=== PATIENT | female | born 1975 | race Caucasian/White ===

== ENCOUNTER 2018-02-23 09:31 | Day surgery (SDC) | payer OTHER, SELFPAY ==
[2018-02-23] VITALS (7 sets, daily range): BP systolic 115–128; BP diastolic 64–90; PULSE 62–86; RESP 13–18; TEMP 36.3–36.8; O2SAT 94–99; BMI 36.1
--- NOTE | 2018-02-23 | PATH_ITS ---
[facility] Accession Number: [id number] . 01 Material submitted: . PART A: ASCENDING COLON SUBMUCOSAL MASS PART B: SUBMUCOSAL MASS AT 30CM PART C: POLYP AT 15CM . 02 Diagnosis: A. Ascending Colon, Submucosal Mass, Biopsy: Compatible with submucosal lipoma. Negative for dysplasia or malignancy. . B. Submucosal Colon Mass at 30 cm, Biopsy: Colonic mucosa with no diagnostic abnormality. No submucosa present for evaluation. Negative for dysplasia or malignancy. . C. Colon Polyp at 15 cm, Biopsy: Invasive adenocarcinoma, moderately differentiated; please see cancer case summary. . . . COLON AND RECTUM CANCER CASE SUMMARY . Tumor site: Other: at 15 cm. Specimen integrity: Fragmented. Polyp size: Cannot be determined; fragmented specimen. Polyp configuration: Sessile (per discussion with Dr. Douglas) Size of invasive carcinoma: Greatest extent: 0.5 cm as measured on glass slide. Histologic type: Adenocarcinoma. Histologic grade: G2 - moderately differentiated. Tumor extension: Tumor invades submucosa. Margins Deep margin (stalk margin): Cannot be assessed (fragmented). Lymphovascular invasion: Not identified. Tumor budding: Number of tumor buds in one field: 1. Low score (0-4). Type of polyp in which invasive carcinoma arose: Tubular adenoma. Ancillary studies: Immunohistochemical stains for DNA mismatch repair proteins are pending and results will be issued in an addendum. MRV/02/24/2018 . 02 Comment: B. The endoscopic impression of a submucosal mass is noted; however, there is no submucosal tissue present for evaluation. . C. As part of routine quality engineer medical device, Dr. Shaw has reviewed part C of this case and agrees with the diagnosis of adenocarcinoma. The finding of invasive adenocarcinoma was reported to Dr. Douglas's nurse, Xi, by Dr. Shree Denis on 02/24/2018 at 12:15 p.m., and was discussed directly with Dr. Douglas later that afternoon. . 02 Electronically signed: . Shree Denis MD, PhD, Pathologist NPI- [id number] . 01 Gross description: . Received three formalin-filled containers each labeled with the patient's name. . A. In a container labeled ascending colon submucosal mass are three 0.1 to 0.3 cm portions of tissue. Entirely submitted in cassette A. B. In a container labeled submucosal mass at 30 cm are three extremely tiny less than 0.1 to 0.2 cm portions of tissue. Entirely submitted in cassette B. C. In a container labeled polyp at 15 cm are multiple less than 0.1 to 0.4 cm in greatest dimension portions of tissue. Filtered, wrapped and entirely submitted in cassette C. ([facility]:[id number]) /[facility] . 02 Pathologist provided ICD-10: C18.9 . 02 CPT . 178809, 219127, 212303, [id number], [id number] Performed at: 01 [facility] [address] [id number] MD Colt Hodge MD Phone: [phone] Performed at: 02 [facility] [address] [place] [id number] MD Trena Shaw MD Phone: [phone]
--- NOTE | 2018-02-23 11:25 | PM.PREOP ---
Pre-operative Note Interval Note Pre-op Check: Yes History & Physical Reviewed by Physician and Yes Exam Performed Changes: No ASA Class (for procedural sedation): I
[2018-02-23] MEDS: SODIUM CHLORIDE 0.9% 1,000 ML 200 ML IV (11:40)
[2018-02-23] MEDS: fentaNYL 250 MCG/5 ML INJ IV (11:58)
[2018-02-23] MEDS: MIDAZOLAM 5 MG/5 ML VIAL IV (11:59)
--- NOTE | 2018-02-23 12:26 | P.OP.ENDO_ITS ---
Operative Date/Time/Diagnoses Date of procedure: 02/23/18 Time of procedure: 12:24 Post-op diagnosis: same (Two submucosal masses clinically consistent with lipoma was. One large broad-based rectal polyp at 15 cm from the anal verge) Procedure & Clinicians Study performed: Colonoscopy with cold biopsy and hot snare polypectomy Same procedure as scheduled: Yes Indications: Rectal bleeding Surgeon: Rashaun Douglas Procedure Notes SCOAP/Timeout: Performed Procedure in detail: The patient was placed in the left lateral decubitus position and underwent IV sedation directed by the surgeon consisting of fentanyl and Versed. Digital exam was remarkable for increased sphincter tone and some skin tags externally.. The scope was inserted and advanced through the rectum into the sigmoid, descending, transverse, and ascending colon. There were a few sigmoid diverticuli noted. The cecum was reached identified by the ileocecal valve and the appendiceal opening. The ileocecal valve was[ normal in appearance. Just beyond the cecum there was a submucosal mass clinically consistent with a lipoma. I took the biopsies of it and appeared to contain fat underneath the mucosa. The scope was gradually brought out. At 30 cm there was another submucosal mass that also was clinically a lipoma. It was too was biopsied and appeared to contain fat under the mucosa. A large broad- based Polyp was found at 15 cm from the anal verge. It. Was snared in pieces and appeared to be removed. Because of its large size I tattooed in the immediate vicinity of it . Might tattoos were either at the level of or just distal to the lesion. The scope ultimately was retroflexed in the rectum. One small hemorrhoid was seen The appearance was otherwise normal. The scope was removed and the patient tolerated the procedure well. A large polyp most likely explains the cause of her intermittent rectal bleeding. If it is benign a flexible sigmoidoscopy should be performed in 6 months to confirm completely removal and no regrowth. Scope withdrawal time: 24 min Sedation minutes: 54 Findings: diverticulosis, polyp and other findings (Two submucosal masses) Specimen(s): other (Submucosal mass biopsies and polypectomy) Complications: none Recommendations: Colonscopy in 5 years and Other recommendation (Flex sig in 6 months if the polyp at 15 cm is benign) Follow up: as needed Disposition: PACU
== END 2018-02-23 13:32 | disposition home or self-care (01) ==
PROVIDERS: PCP Family Medicine; Visit Provider Specialist
PROC: 0DJD8ZZ Inspection of Lower Intestinal Tract, Via Natural or Artificial Opening Endoscopic (ICD-10-PCS; CPT 45378; principal; 2018-02-23 11:00)
DX: C18.9 Malignant neoplasm of colon, unspecified (principal); K57.30 Diverticulosis of large intestine without perforation or abscess without bleeding; A63.0 Anogenital (venereal) warts
CPT/HCPCS: 45385; 45380; 99152; 99153; J2250; J3010

== ENCOUNTER → 2018-02-25 11:36 | Outpatient (CLI) | payer OTHER, SELFPAY ==
[2018-02-25 12:13] LABS: Add Manual Diff / Slide Review NO; Basophils Percent Auto 0.5 % (0-2); Eosinophils Percent Auto 1.6 % (2-4); Hematocrit 37.6 % (36-46); Hemoglobin 13.1 g/dL (12.0-16.0); Lymphocytes Percent Auto 30.4 % (25-40); Mean Corpuscular HGB Conc 34.8 % (30-36); Mean Corpuscular Hemoglobin 29.9 PG (26-34); Mean Corpuscular Volume 85.9 fL (80-100); Monocytes Percent Auto 6.3 % (3-14); Neutrophils Absolute Auto 3300 /uL (3000-5900); Neutrophils Percent Auto 61.2 % (50-75); Platelet Count 190 X10^3/uL (150-400); Red Blood Cell Count 4.37 X10^6/uL (4.0-5.2); Red Cell Distribution Width 14.4 % (11.6-14.8); White Blood Cell Count 5.5 X10^3/uL (4.5-11.0)
[2018-02-25 12:41] LABS: Alanine Aminotransferase 70 IU/L (9-52); Albumin 4.5 g/dL (3.5-5.0); Albumin Globulin Ratio 1.5 (1.0-2.8); Alkaline Phosphatase 69 U/L (38-126); Aspartate Aminotransferase 50 IU/L (14-36); BUN Creatinine Ratio 18.3 (6-22); Bilirubin Total 0.5 mg/dL (0.2-1.3); Blood Urea Nitrogen 11 mg/dL (7-17); Carbon Dioxide 29 mmol/L (22-32); Chloride 105 mmol/L (98-107); Estimated Glomerular Filt Rate > 60.0 mL/min (>60); Glucose 100 mg/dL (70-100); HEMOLYSIS < 15 (0-50); Potassium 3.6 mmol/L (3.4-5.1); Sodium 147 mmol/L (137-145); Total Protein 7.5 g/dL (6.3-8.2)
[2018-02-25 13:59] LABS: Carcinoembryonic Antigen 0.9 ng/mL (0.1-3.0)
== END ==
PROVIDERS: PCP Family Medicine; Visit Provider Family Medicine
DX: K62.5 Hemorrhage of anus and rectum (principal)
CPT/HCPCS: 36415; 80053; 82378; 85025

== ENCOUNTER → 2018-02-27 07:03 | Outpatient (CLI) | payer OTHER, SELFPAY ==
--- NOTE | 2018-02-27 | DI.CT.S_ITS ---
PROCEDURE: CT CHEST ABD PEL W CON INDICATIONS: RECTAL CANCER TECHNIQUE: After the administration of oral and intravenous contrast, 5 mm thick sections acquired from the lung apices to the symphysis. 5 mm coronal and sagittal reformats were performed, with additional 7 mm coronal MIP reformats through the lungs. For radiation dose reduction, the following was used: automated exposure control, adjustment of mA and/or kV according to patient size. COMPARISON: None. FINDINGS: Image quality: Excellent. CHEST: Lungs and pleura: No acute airspace opacities. No pleural effusions or pneumothorax. Central and peripheral airways appear patent and normal in caliber. Mediastinum: Heart size is normal. No pericardial effusion. No mediastinal or hilar adenopathy by size criteria. Thoracic aorta and central pulmonary arteries are normal in size. Esophagus is normal in caliber. No hiatal hernia. Chest wall: No axillary or supraclavicular adenopathy by size criteria. Thyroid gland appears normal. ABDOMEN: Solid organs: Liver is normal in size and enhancement. Gallbladder appears previously resected. Biliary system is non dilated. Pancreas enhances normally. Spleen is normal in size and enhancement. No adrenal nodules. Kidneys demonstrate normal size and enhancement, without hydronephrosis. Peritoneum and bowel: Bowel loops demonstrate normal wall thickness and caliber. No free fluid or air. Nodes and vessels: No retroperitoneal or mesenteric adenopathy by size criteria. Aorta and inferior vena cava are normal in size. Miscellaneous: No ventral hernias. PELVIS: Genitourinary: Bladder wall thickness is normal. Centrally positioned IUD is noted over the endometrial space. Miscellaneous: No inguinal hernias or adenopathy. An identifiable rectal mass or adjacent adenopathy in the issue rectal fossa or pelvirectal fossa fat is not seen. Bones: No suspicious bony lesions. No vertebral body compression fractures. IMPRESSION: No sign of metastatic disease. The clinical history indicates rectal carcinoma but a discrete identifiable rectal mass is not seen by this study. Prior cholecystectomy. Dictated by: Garo Boone M.D. on 02/27/2018 at 11:35 Approved by: Garo Boone M.D. on 02/27/2018 at 11:36
[2018-02-27 07:53] LABS: Lymphocytes Percent Auto 24.2 % (25-40); Red Cell Distribution Width 14.4 % (11.6-14.8)
[2018-02-27 07:59] LABS: Add Manual Diff / Slide Review NO; Basophils Percent Auto 0.5 % (0-2); Eosinophils Percent Auto 1.7 % (2-4); Hematocrit 38.2 % (36-46); Hemoglobin 13.4 g/dL (12.0-16.0); Mean Corpuscular Volume 85.6 fL (80-100); Monocytes Percent Auto 6.4 % (3-14); Neutrophils Absolute Auto 4700 /uL (3000-5900); Neutrophils Percent Auto 67.2 % (50-75); Platelet Count 188 X10^3/uL (150-400); Red Blood Cell Count 4.46 X10^6/uL (4.0-5.2); White Blood Cell Count 6.9 X10^3/uL (4.5-11.0)
[2018-02-27 08:08] LABS: Alanine Aminotransferase 70 IU/L (9-52); Albumin 4.5 g/dL (3.5-5.0); Albumin Globulin Ratio 1.7 (1.0-2.8); Alkaline Phosphatase 71 U/L (38-126); Aspartate Aminotransferase 32 IU/L (14-36); BUN Creatinine Ratio 23.3 (6-22); Bilirubin Total 0.4 mg/dL (0.2-1.3); Blood Urea Nitrogen 14 mg/dL (7-17); Calcium 9.1 mg/dL (8.4-10.2); Carbon Dioxide 27 mmol/L (22-32); Chloride 104 mmol/L (98-107); Estimated Glomerular Filt Rate > 60.0 mL/min (>60); Globulin 2.7 g/dL (1.7-4.1); Glucose 119 mg/dL (70-100); HEMOLYSIS < 15 (0-50); Potassium 3.8 mmol/L (3.4-5.1); Sodium 145 mmol/L (137-145); Total Protein 7.2 g/dL (6.3-8.2)
== END ==
PROVIDERS: PCP Family Medicine; Visit Provider Specialist
DX: C20 Malignant neoplasm of rectum (principal); Z90.49 Acquired absence of other specified parts of digestive tract
CPT/HCPCS: 36415; 71260; 74177; 80053; 85025; Q9967

== ENCOUNTER 2018-04-30 06:00 | Inpatient (IN) | payer OTHER, SELFPAY ==
[2018-04-24 08:56] VITALS: BMI 36.4
[2018-04-30] VITALS (19 sets, daily range): BP systolic 97–136; BP diastolic 56–95; PULSE 76–110; RESP 13–19; TEMP 36.1–37.7; O2SAT 95–100; BMI 35.5
--- NOTE | 2018-04-30 | PATH_ITS ---
[facility] Accession Number: [id number] . 01 Material submitted: . PART A: RECTO-SIGMOID/ SIGMOID COLON PART B: PROXIMAL END OF SIGMOID ANASTAMOSIS PART C: DISTAL END OF SIGMOID ANASTAMOSIS . 01 Clinical history: . A: RECTO-SIGMOID/SIGMOID COLON..STITCH CLINE DISTAL END . 02 Diagnosis: A. Rectosigmoid/Sigmoid Colon, Resection: 1. Patchy reactive changes in the submucosa with foreign body giant cell reaction and pigmented histiocytes consistent with tattoo. 2. Patchy ischemia-type changes. 3. No residual carcinoma identified. Please see CAP template below. . B. Proximal End of Sigmoid Anastomosis: Colonic wall segment with no evidence of neoplasm. . C. Distal End of Sigmoid Anastomosis: 1. Colonic mucosa with reactive changes including foreign body giant cell reaction and changes consistent with tattoo. 2. Patchy ischemia-type changes. 3. No evidence of neoplasm. . . . CAP Cancer Case Summary: Colon and Rectum: Resection . Procedure: Sigmoidectomy. Tumor Site: at 15 cm. Tumor Location: Not specified. Tumor Size: 0.5 cm, per report ([id number]). Macroscopic Tumor Perforation: Not identified. Histologic Type: Adenocarcinoma. Histologic Grade: G2, moderately differentiated, per report. Microscopic Tumor Extension: No evidence of primary tumor. Margins: All margins are uninvolved by invasive carcinoma, high-grade dysplasia, intramucosal adenocarcinoma and adenoma. Treatment Effect: No known presurgical therapy. Lymph-Vascular Invasion: Not identified. Perineural Invasion: Not identified. Tumor Deposits: Not identified. Pathologic Staging (pTNM, AJCC 8th ed.) Primary Tumor: pT1 Regional Lymph Nodes: pN0 Number of Lymph Nodes Examined: 10. Number of Lymph Nodes Involved: 0. . Additional Pathologic Findings: 1. Reactive changes secondary to prior instrumentation. 2. Pigmented macrophages, consistent with tattoo. 3. Submucosal lipoma. 4. Patchy ischemia-type changes. . Ancillary Studies: No loss of expression of mismatch repair proteins (MLH1, MSH2, MSH6 or PMS2), per report ([id number]). . MRV/05/07/2018 . 02 Electronically signed: . Trena Shaw MD, Pathologist NPI- [id number] . 01 Gross description: . (A) Received in formalin, labeled recto + sigmoid colon, stitch cline distal end, is an opened segment of colon (length-25.5 cm, proximal diameter-2.2 cm, distal diameter-4.0 cm) with attached mesentery (up to 4.5 cm in depth). The resection margins are received stapled. The specimen is oriented with a two-tailed black suture indicating the distal end. The mucosa is rhodes smooth and flat. A pale rhodes polypoid lesion (1.3 x 1.0 x 0.7 cm) is identified 0.5 cm from the proximal resection margin. No nodules, masses or other lesions are identified. Multiple possible lymph nodes (0.1-0.3 cm) are identified. The resection margins are inked black. Section code: (A1) proximal resection margin, longitudinal outside sales representative; (A2) distal resection margin, longitudinal outside sales representative; (A3-A9) colon segment, outside sales representative serial section submitted proximal to distal; (A10) multiple intact lymph nodes. Additional sections: (A12-A19) additional outside sales representative serial sections. (:[id number]) Note: After the initial lymph node search was performed, the adipose tissue was placed in grossing aid for approximately 24 hours. A secondary lymph node search was performed with multiple possible lymph nodes (0.1cm-0.2 cm) identified. These lymph nodes are submitted intact in cassette A11. (:cmc10 [id number]) Additional sections from the distal resection end are submitted in blocks A12 through A19. . (B) Received in formalin, labeled proximal end of anastomosis colon, is an unoriented segment of colon (length-1.0 cm, diameter-1.5 cm) with mendoza-rhodes smooth and shiny mucosa. No nodules, masses or lesions are identified. The resection margin is inked black. Longitudinally sectioned and entirely submitted in cassettes B1-B2. (C) Received in formalin, labeled distal end of anastomosis colon, is an unoriented segment of colon (length-1.3 cm, diameter-1.5 cm) with mendoza-rhodes smooth and shiny mucosa. No nodules, masses or lesions are identified. The resection margin is inked black. Longitudinally sectioned and entirely submitted in cassettes C1-C2. ([id number]) /[facility] . 02 Pathologist provided ICD-10: C18.9 . 02 CPT . 012488, 773058, 744038 Performed at: [address] [facility] [address] [facility], [place], [place] [id number] MD Colt Hodge MD Phone: [phone] Performed at: 02 [facility] [address] [place], [place] [id number] MD Trena Shaw MD Phone: [phone]
[2018-04-30] MEDS: LACTATED RINGERS 1,000 ML 42 ML IV (07:08)
--- NOTE | 2018-04-30 08:01 | PM.PREOP ---
Pre-operative Note Interval Note History & Physical reviewed/Exam performed by Physician: Yes Changes to H&P: No
[2018-04-30] MEDS: metroNIDAZOLE 500 MG/100 ML PIGGYBACK 100 MG IV ×3 (08:05→15:50)
[2018-04-30] MEDS: CEFOTETAN 2 GM/50 ML PIGGYBACK IV ×2 (08:15→14:15)
--- NOTE | 2018-04-30 09:07 | SUR.OPER ---
Lithotomy on padded OR bed. [place] Pad Positioner under torso. Head on pillow, arms padded and tucked at sides. Legs secured in padded yellow fins stirrups.
[2018-04-30] MEDS: LACTATED RINGERS 1,000 ML 100 ML IV (09:44)
[2018-04-30] MEDS: BUPIVACAINE 0.5% (PF) VIAL 10 ML INJ (10:02)
--- NOTE | 2018-04-30 10:16 | SUR.OPER ---
LEFT ARM LEFT OUT LESS THAN 90 DEGREE ABDUCTION, PADDED
[2018-04-30] MEDS: LACTATED RINGERS 1,000 ML 200 ML IV ×3 (11:47→14:53)
--- NOTE | 2018-04-30 16:24 | PM.OP.1 ---
Operative Date/Time/Diagnoses Date of procedure: 04/30/18 Time of procedure: 16:10 Pre-op diagnosis: Colorectal cancer Post-op diagnosis: same Procedure & Clinicians Procedure: Low anterior resection Same procedure as scheduled: Yes Indications: Cancer near the junction of the rectum and colon. Metastatic workup negative. Surgeon: Rashaun Douglas Digital Marketing Project Manager: Jaswinder Cisneros Click Yes if Unassisted: Yes Anesthesia Type: General Operative Notes Findings: Incredibly difficult dissection into the pelvis due to her body habitus and it being so narrow. Resection just distal to the known lesion Closure Type: primary Specimen(s): other (Portion colon) Estimated Blood Loss (mL): 300 Blood products transfused: none Procedure in detail: The patient is placed supine on the operating room table underwent general endotracheal anesthesia. She was placed in low lithotomy with sequential compression devices on. She was prepped and draped in usual fashion. Incision was made through a scar in her infraumbilical fold and carried down under direct vision the peritoneal cavity. Stay sutures of 0 Vicryl were placed in the fascia. Jaden cannula was inserted. The abdomen was insufflated. Two additional ports were placed 1 beneath the umbilicus and the 2nd in the left lower quadrant. Using go sharp dissection and the Harmonic scalpel the attachments of the sigmoid and descending colon and the transverse colon were divided to mobilize the colon so that it would easily go into the pelvis. I freed the sigmoid down as low as I could see and decided open at that point. Transverse incision was made the left lower quadrant and carried principal early through the area of the rectus which was partially divided partially pulled apart. The colon was delivered into the wound I chose a point in it to divide the colon. This was accomplished with a ALFA. The mesentery was taken down with Harmonic scalpel. Dissection was carried into the pelvis. This was without a doubt the most difficult dissection of ever done for low anterior. Her uterus and ovaries continually slipped out from under retractors and fell into the visual field. Ureter was identified on each side and carefully preserved. Bill dissection was carried down into the pelvis. We were so far down I just had difficulty seeing anything. The lateral pedicles were divided with Harmonic scalpel. We finally reached a point where I felt we could not get any further short of doing an APR. Contour stapler was inserted and I had to wedge it into the pelvis and pull the colon through in order to bring the colon through the device. It was closed and fired forty it misfired and did not cut this specimen. It was removed. Further dissection was carried out and another contour was applied and this time we was were successful in dividing the colon and delivering it from the field. The specimen was opened on really could not identify a lesion. The division was just distal to where the lesion was. I felt that I could not go further inferiorly as I simply could not see the area we were working on. The pelvis is irrigated. We examined the ureters and they appeared to be intact. It took a considerable amount of time to gain enough spot exposure in the pelvis and see the staple line in order to create an he a anastomosis. The proximal colon edge was cleared of fat and the end open. It was sized and easily fit a 28 [place] Sizer. A 28 anvil was placed in the proximal divided bowel and a running 2 0 PDS was used close the opening around the stem of the anvil. A blow and exam examined the staple line using a rigid proctoscope. He then inserted a 28 Sizer in an attempt for me to see the transected end of the rectum. Ultimately he replaced it with a proctoscope and filled with air and I was able to see the staple line in the pelvis. It was replaced with a 28 Cambod[place] EEA. I brought the proximal transected and down into the pelvis and attached the anvil to the spike. The device was closed appeared to be in good position and the the device was fired creating the anastomosis. This was examined with a rigid proctoscope and appeared to be intact. A bowel clamp was placed proximal to the anastomosis and the pelvis filled with water. Air was insufflated there was no evidence of an air leak. The pelvis is irrigated and suctioned free of fluid the bowel clamp was released and the proctoscope removed. The pelvis was a air noted. Posterior fascia was closed with number Vicryl. The anterior fascia was closed with a a running PDS suture. Subcu was irrigated and loosely reapproximated with 3 0 Vicryl. The skin was closed with a running 4 0 Vicryl subcuticular stitch and Steri-Strips. Dressing was applied admission tolerated the procedure well. This operation was very complicated and tedious. It required 8 hr to complete. Complications: none Condition: stable Disposition: PACU Plan for aftercare: Will transfer to the ICU for care of an epidural for pain control.
[2018-04-30] MEDS: BUPIVACAINE 0.5% (PF) 25 ML in SODIUM CHLORIDE 0.9% 75 ML 8 ML EPIDURAL (17:20)
--- NOTE | 2018-04-30 17:25 | SUR.PHASEI ---
Epidural infusing at 8ml/hr per Dr. Zaman.
--- NOTE | 2018-04-30 17:48 | SUR.PHASEI ---
Pt transferred to ICU, Report to Silvia. VS stable. IV saline locked. Dial patent. No drainage to abd drsg. Abd soft. Epidural level approx l2, pt able to wiggle toes,+ pp x2, ble warm, pale. Small amt of bloody drainage to epidural drsg.
--- NOTE | 2018-04-30 17:52 | SUR.PHASEI ---
Belongings bag with patient.
--- NOTE | 2018-04-30 18:25 | PC.NURSE ---
Addendum entered by Silvia oCnroy R.N. 04/30/18 19:13: 1900 - Pt c/o RUE pain and inability to lift arm up off bed. ROM, Pt grimace but reports mild improvement. Able to hold arm up against gravity following ROM. Dr. Zaman notified during pt rounds. Orders obtained. Original Note: 1740 - Pt received from PACU. Drowsy, but appropriate. ABD drsg CDI. Epidural drsg with scant bloody drainage around insertion site. Drsg intact. Epidural infusing at 8mls/hr. Pt denies pain, denies nausea. Dial catheter in place. Emptied by TEXTILE FINISHER. IV fluid initated at 150cc/hr per MD order. SCD's applied. Call light in reach. Oriented to room and routine. Family at bedside.
[2018-04-30] MEDS: LACTATED RINGERS 1,000 ML 150 ML IV (18:31)
[2018-04-30 19:46] LABS: Alanine Aminotransferase 66 IU/L (9-52); Albumin 3.7 g/dL (3.5-5.0); Albumin Globulin Ratio 1.5 (1.0-2.8); Alkaline Phosphatase 57 U/L (38-126); Aspartate Aminotransferase 55 IU/L (14-36); BUN Creatinine Ratio 13.3 (6-22); Bilirubin Total 1.2 mg/dL (0.2-1.3); Blood Urea Nitrogen 8 mg/dL (7-17); Calcium 8.3 mg/dL (8.4-10.2); Carbon Dioxide 26 mmol/L (22-32); Chloride 104 mmol/L (98-107); Estimated Glomerular Filt Rate > 60.0 mL/min (>60); Globulin 2.4 g/dL (1.7-4.1); Glucose 173 mg/dL (70-100); HEMOLYSIS 41 (0-50); Sodium 139 mmol/L (137-145); Total Protein 6.1 g/dL (6.3-8.2)
[2018-04-30 19:47] LABS: Potassium 3.6 mmol/L (3.4-5.1)
[2018-04-30] MEDS: ONDANSETRON 4 MG/2 ML INJ IV (20:47)
[2018-05-01] MEDS: ONDANSETRON 4 MG/2 ML INJ IV (00:25)
[2018-05-01] MEDS: LACTATED RINGERS 1,000 ML 150 ML IV ×4 (00:25→20:03)
[2018-05-01] MEDS: CEFOTETAN 2 GM/50 ML PIGGYBACK IV (02:20)
[2018-05-01 03:55] VITALS: BP 118/68; PULSE 103; RESP 18; TEMP 36.9; O2SAT 94
[2018-05-01] MEDS: BUPIVACAINE 0.5% (PF) 25 ML in SODIUM CHLORIDE 0.9% 75 ML 8 ML EPIDURAL ×2 (04:47→16:26)
[2018-05-01 05:48] LABS: Add Manual Diff / Slide Review NO; Basophils Absolute Auto 0 /uL (0-100); Basophils Percent Auto 0.1 % (0-2); Eosinophils Absolute Auto 0 /uL (0-450); Hematocrit 32.5 % (36-46); Hemoglobin 11.2 g/dL (12.0-16.0); Lymphocytes Absolute Auto 500 /uL (1100-4500); Lymphocytes Percent Auto 4.3 % (25-40); Mean Corpuscular HGB Conc 34.6 % (30-36); Mean Corpuscular Hemoglobin 29.7 PG (26-34); Monocytes Absolute Auto 500 /uL (0-900); Monocytes Percent Auto 4.5 % (3-14); Neutrophils Absolute Auto 10100 /uL (1500-7000); Neutrophils Percent Auto 91.1 % (50-75); Platelet Count 153 X10^3/uL (150-400); Red Blood Cell Count 3.78 X10^6/uL (4.0-5.2); Red Cell Distribution Width 14.5 % (11.6-14.8)
[2018-05-01] MEDS: MORPHINE PCA 30 MG/30 ML PCA.VIAL IV ×3 (06:26→21:44)
[2018-05-01 07:00] VITALS: BP 111/61; PULSE 87; RESP 16; TEMP 36.8; O2SAT 94
[2018-05-01] MEDS: GABAPENTIN 300 MG CAPSULE PO ×2 (09:20→20:46)
--- NOTE | 2018-05-01 11:27 | PM.PN.1 ---
Exam Vital Signs (past 8 hours): - 05/01/18 03:55 05/01/18 07:00 Temperature 98.5 F 98.2 F Pulse Rate 103 H 87 Respiratory Rate 18 16 Blood Pressure 118/68 111/61 Pulse Oximetry 94 94 Oxygen Delivery Method Room Air Oxygen Flow Rate 0 Objective Labs Result Diagrams: 05/01/18 05:20 04/30/18 19:00 Labs: Laboratory Results - last 24 hr 04/30/18 04/30/18 05/01/18 17:40 19:00 05:20 WBC 11.0 RBC 3.78 L Hgb 11.2 L Hct 32.5 L MCV 86.0 MCH 29.7 MCHC 34.6 RDW 14.5 Plt Count 153 Neut % (Auto) 91.1 H Lymph % (Auto) 4.3 L Island % (Auto) 4.5 Eos % (Auto) 0.0 L Baso % (Auto) 0.1 Neut # (Auto) 40553 H Lymph # (Auto) 500 L [place] # (Auto) 500 Eos # (Auto) 0 Baso # (Auto) 0 Sodium 139 Potassium 3.6 Chloride 104 Carbon Dioxide 26 BUN 8 Creatinine 0.60 Estimated GFR > 60.0 BUN/Creatinine Ratio 13.3 Glucose 173 H Calcium 8.3 L Total Bilirubin 1.2 AST 55 H ALT 66 H Alkaline Phosphatase 57 Total Protein 6.1 L Albumin 3.7 Globulin 2.4 Albumin/Globulin Ratio 1.5 Nasal Screen MRSA (PCR) Negative for mrsa Assessment & Plan Plan: Assessment/Plan Narrative: Postop day 1: S/P low anterior resection for colorectal ca. Thoracic epidural for postop pain management insitu. Long surgical procedure lasting over 8 hours. Patient tolerated procedure well with only transient decrease in urine output intraoperatively that was treated successfully with IV fluid bolus. A low thoracic (~T11-12) epidural was placed at the end of the case. An epidural infusion of 0.125% bupivacaine (plain) was started in PACU and remains at 8 ml per hour. Pain has been well controlled with the epidural infusion and MOPHEAD SEWER Morphine; she has used only 6 mg IV morphine overnight. Vital signs are stable and labs show slight drop in hematocrit to 32.5, otherwise stable. Urine output is stable. Upon arrival to the ICU last evening the patient states she was unable to move her right arm; it was . This has resolved and the patient has full mobility of her arm today. She is sitting up in bed with legs dangling. She states she has some low abdominal discomfort, but it is tolerable. Mostly she complains of being foggy. She has not attempted standing. Epidural site is covered with a tegaderm, dried blood, some rolling up of surrounding tape, no evidence of tenderness, exudate or erythema. Assessment and Plan: 1. Neurological deficit of right arm immediately postop has resolved. Prolonged surgical case with patient's right arm fully padded and tucked at her side; she was in trendelenburg position with a rightward tilt to optimize surgical exposure. Continue to encourage patient to move all extremities. 2. Thoracic epidural infusion at 8 ml per hour with 0.125% plain bupivacaine. Patient is using her Morphine MOPHEAD SEWER minimally. She has just stood at bedside with no reported leg weakness. Her pain upon standing she rated 2 out of 10. The tape covering the tegaderm was reinforced and an extension was added to the line for increased mobility. I will continue infusion at present rate. I am signing out to Dr. Topete who is covering weekend call for Anesthesia and informed the patient. Quality VTE Deep Vein Thrombosis/Pulmonary Embolism Present on Admission: No
--- NOTE | 2018-05-01 11:52 | P.PN_ITS ---
Exam Vital Signs (past 8 hours): - 05/01/18 03:55 05/01/18 07:00 Temperature 98.5 F 98.2 F Pulse Rate 103 H 87 Respiratory Rate 18 16 Blood Pressure 118/68 111/61 Pulse Oximetry 94 94 Oxygen Delivery Method Room Air Oxygen Flow Rate 0 Objective Labs Result Diagrams: 05/01/18 05:20 04/30/18 19:00 Labs: Laboratory Results - last 24 hr 04/30/18 04/30/18 05/01/18 17:40 19:00 05:20 WBC 11.0 RBC 3.78 L Hgb 11.2 L Hct 32.5 L MCV 86.0 MCH 29.7 MCHC 34.6 RDW 14.5 Plt Count 153 Neut % (Auto) 91.1 H Lymph % (Auto) 4.3 L [place] % (Auto) 4.5 Eos % (Auto) 0.0 L Baso % (Auto) 0.1 Neut # (Auto) 98383 H Lymph # (Auto) 500 L [place] # (Auto) 500 Eos # (Auto) 0 Baso # (Auto) 0 Sodium 139 Potassium 3.6 Chloride 104 Carbon Dioxide 26 BUN 8 Creatinine 0.60 Estimated GFR > 60.0 BUN/Creatinine Ratio 13.3 Glucose 173 H Calcium 8.3 L Total Bilirubin 1.2 AST 55 H ALT 66 H Alkaline Phosphatase 57 Total Protein 6.1 L Albumin 3.7 Globulin 2.4 Albumin/Globulin Ratio 1.5 Nasal Screen MRSA (PCR) Negative for mrsa Assessment & Plan Plan: Assessment/Plan Narrative: Postop day 1: S/P low anterior resection for colorectal ca. Thoracic epidural for postop pain management insitu. Long surgical procedure lasting over 8 hours. Patient tolerated procedure well with only transient decrease in urine output intraoperatively that was treated successfully with IV fluid bolus. A low thoracic (~T11-12) epidural was placed at the end of the case. An epidural infusion of 0.125% bupivacaine (plain) was started in PACU and remains at 8 ml per hour. Pain has been well controlled with the epidural infusion and RECREATION THERAPY TEACHER Morphine; she has used only 6 mg IV morphine overnight. Vital signs are stable and labs show slight drop in hematocrit to 32.5, otherwise stable. Urine output is stable. Upon arrival to the ICU last evening the patient states she was unable to move her right arm; it was . This has resolved and the patient has full mobility of her arm today. She is sitting up in bed with legs dangling. She states she has some low abdominal discomfort, but it is tolerable. Mostly she complains of being foggy. She has not attempted standing. Epidural site is covered with a tegaderm, dried blood, some rolling up of surrounding tape, no evidence of tenderness, exudate or erythema. Assessment and Plan: 1. Neurological deficit of right arm immediately postop has resolved. Prolonged surgical case with patient's right arm fully padded and tucked at her side; she was in trendelenburg position with a rightward tilt to optimize surgical exposure. Continue to encourage patient to move all extremities. 2. Thoracic epidural infusion at 8 ml per hour with 0.125% plain bupivacaine. Patient is using her Morphine RECREATION THERAPY TEACHER minimally. She has just stood at bedside with no reported leg weakness. Her pain upon standing she rated 2 out of 10. The tape covering the tegaderm was reinforced and an extension was added to the line for increased mobility. I will continue infusion at present rate. I am signing out to Dr. Topete who is covering weekend call for Anesthesia and informed the patient. Quality VTE Deep Vein Thrombosis/Pulmonary Embolism Present on Admission: No
[2018-05-01 12:12] VITALS: BP 137/82; PULSE 84; RESP 16; TEMP 36.8; O2SAT 97
--- NOTE | 2018-05-01 12:23 | PC.NURSE ---
Pt alert, oriented rates pain to abdomen 2/10. SBA to chair, gait steady, good strength in legs. Epidural at 8ml/hr with good pain relief, also using THREAD TRIMMER as needed. Denies nausea taking clear liquids.
--- NOTE | 2018-05-01 13:49 | OT.IP.EVAL ---
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) Surgical History (Last Reviewed 04/30/18 @ 10:10 by Fernanda Esquivel DO) Hx of cholecystectomy (Acute) Hx of tonsillectomy (Acute) History of third molar tooth extraction (Resolved) Status post laparoscopic cholecystectomy (Resolved) Occupational Therapy Inpatient Evaluation/Re-Eval M1 PT/OT-IP Prior Functional Status Start: 05/01/18 13:08 Freq: NEEDED Status: Active Protocol: Document 05/01/18 13:08 [facility] (Rec: 05/01/18 13:49 [facility] [id number]) Medical Review Prior Functional Status Medical History Reviewed Yes Diet/Fluid Consistency Clear Liquids Communication Independent. Mobility and Gait Independent and did not use any devices. Activities of Daily Living and IADL's COmpletely independent with ADl's, IADL's and worked as a cook at [employer]. Social History Household Members other children Living Arrangements House Number of Stairs To Enter/Railing? No steps per pt. Home Environment Standard Height Toilet Walk in Shower M2 OT-IP Current Condition Start: 05/01/18 13:08 Freq: Status: Active Protocol: Document 05/01/18 13:08 [facility] (Rec: 05/01/18 13:49 [facility] [id number]) Occupational Therapy Current Condition Current Condition Evaluation Date 05/01/18 Treatment Diagnosis Colorectal cancer s/p partial removal of colon Diagnosis Onset Date 04/30/18 Post Operative Precautions Abdominal Surgery Precautions Log Roll Lifting Restrictions Gait Belt above Incisional Area M3 OT- IP Subjective and Pain Start: 05/01/18 13:08 Freq: Status: Active Protocol: Document 05/01/18 13:08 [facility] (Rec: 05/01/18 13:49 [facility] [id number]) OT- Subjective Occupational Therapy Visit Type Type Initial Evaluation Visit Start Time 11:35 Visit Stop Time 12:15 Total Visit Minutes 40 Occupational Therapy Visit Comments Patient Comments Pt sitting at the edge of the bed upon walking into the room . Pt wanting to get up and sit into the recliner. OT Pain Assessment Pain When Pain Assessed At Rest Pain Present Pain Present Pain Reported Location Abdomen Intensity 2 Scale Used Numeric (1 - 10) M4 OT- IP ADL's Start: 05/01/18 13:08 Freq: Status: Active Protocol: Document 05/01/18 13:08 [facility] (Rec: 05/01/18 13:49 [facility] [id number]) OT [id number] Comments OT Self-Feeding Comments Pt able having clear liquids at this time and states throat feels a bit scratchy but otherwise no issues with swallowing. OT ADL-Grooming General Evaluation Areas Needing Assistance Retrieving/Set-up of Grooming Items Comments OT Grooming Comments Assist to open film from toothpaste top, pt have o2 sensor on her right hand therefore making it difficult to do set-up for grooming needs. OT ADL-Oral Care General Eval Oral Care Ability Independent Comments Oral Care Comments Independent from edge of bed with tray table in front of her. OT ADL-Dressing General Eval Lower Body Dressing Ability Minimal Assistance Areas Needing Assistance Socks Comments OT Dressing Comments Pt able to reach to do socks and needing assist to doff to right foot, able to show pt public affairs officer and sock aid if needed . However as pt progresses will not have any issues for dressing needs. OT ADL-Toileting Comments OT Toileting Comments Pt has catheter in. OT ADL-Bathing Bathing Type Bathing Type Sponge Bath General Evaluation Bathing Ability Moderate Assistance Areas Needing Assistance Wash/Dry Back Wash/Dry Lower Extremities Comments OT Bathing Comments Pt needing assist for back, lower legs to wash and dry. Suggested bath brush will be helpful at home in addition to a shower chair. M5 OT- IP IADL's Start: 05/01/18 13:08 Freq: Status: Active Protocol: Document 05/01/18 13:08 [facility] (Rec: 05/01/18 13:49 [facility] [id number]) OT-Instrumental Activities of Daily Living Assurance Engineer Assurance Engineer Comments Pt will need assist initially and states kids to help at home due to recent surgery. M6 OT- IP Functional Cognition Start: 05/01/18 13:08 Freq: Status: Active Protocol: Document 05/01/18 13:08 [facility] (Rec: 05/01/18 13:49 [facility] [id number]) Cognitive Factors Limiting Selfcare Function Cognitive Ability Level of Alertness Alert Patient Orientation Name Day of Week Place Situation Attention Span Ability Capable of Focused Attention Capable of Sustained Attention Ability to Follow Commands Able to Follow Multi-Step Commands Memory Description No Deficits Noted Safety Awareness No Deficits Noted Problem Solving Ability No deficits Noted Cognitive Comments Cognitive Assessment Comments Pt able to follow multiple commands and good safety awareness for needs at this time. OT- Vision and Hearing OT- Hearing Assessment OT- Hearing Assessment WFL OT- Vision Assessment Visual Acuity WFL M7 OT- IP Mobility and Balance Start: 05/01/18 13:08 Freq: Status: Active Protocol: Document 05/01/18 13:08 [facility] (Rec: 05/01/18 13:49 [facility] [id number]) OT-Transfer Assessment Sit to and From Stand Sit to and from Stand Standby Assistance Contact Guard Assistance Transfers Transfer Ability Standby Assistance Technique Transfer Destination Bed Chair Devices Transfer Assistive Devices Gait Belt Comments Mobility Comments Pt able to stand with SBA and mainly needing assist for all management of cords,tubes, and IV pole. Pt only wanting to transfer at this time due to feeling tired and lunch arrived. OT- Balance Assessment Sitting Balance and Reactions Static Sitting Balance Ability Normal Dynamic Sitting Balance Ability Normal Standing Balance and Reactions Static Standing Balance Ability Good M8 OT- IP Objective Assessments Start: 05/01/18 13:08 Freq: Status: Active Protocol: Document 05/01/18 13:08 [facility] (Rec: 05/01/18 13:49 [facility] [id number]) OT Gross Range of Motion Upper Extremity Range of Motion Assessment Within Functional Limits OT Strength Upper Extremity Strength Assessment Within Functional Limits Comments Strength Comments BUE equal 4+/5 throughout. OT- Coordination Assessment Comments Coordination Comments WFL for set-up of tray. M9 OT- IP Assessment and Plan Start: 05/01/18 13:08 Freq: Status: Active Protocol: Document 05/01/18 13:08 [facility] (Rec: 05/01/18 13:49 [facility] [id number]) OT Summary Assessment and Plan Potential Rehabilitation Potential Excellent Analytic Complexity at Evaluation Low Summary OT Impairments Balance Functional Mobility Bathing Progress Towards Goals Progressing Toward Goals Assessment Summary Pt s/p partial removal of colon due to colorectal CA. Initially pt not able to use RUE, now strength and AROm have returned. Able to talk about possible equipment needs -such as shower chair, public affairs officer, and HHS. Pt limited for ambulation at this time due to IV, line, and other tubing attached to pt at this time. Pt looking to go home when medically stable. Goals Self-Feeding Goal Independent Grooming Goal Standby Assistance Dressing Goal Moderate Assistance Toileting Goal Independent Bathing Goal Standby Assistance Toilet Transfer Goal Standby Assistance Shower Transfer Goal Standby Assistance Patient/Caregiver Education Goal Caregiver Independent Assisting Patient Days to Meet Goals 4 Frequency of Treatment Frequency Of Treatment Once a Day Treatment Plan OT Treatment Plan ADL Training Functional Mobility Patient/Family Education Discharge Planning Other Treatment Recommendations and Next Assess stability up on her Treatment Focus feet for grooming at sink. Discharge Recommendations OT Discharge Recommendations Home with Assistance Home Equipment Needs shower chair, HHSP, public affairs officer
--- NOTE | 2018-05-01 14:09 | CM.IDA ---
Discharge Planning/Care Management CM Discharge Assessment Start: 05/01/18 13:56 Freq: Status: Active Protocol: Document 05/01/18 13:56 [facility] (Rec: 05/01/18 14:09 [facility] [id number]) Discharge Planning Assessment Assigned Physician Surgeon JERRICA Greenfield DPOA/Assigned Designee Name Cesar Roldan,spouse, () Leydi Roldan, dtr Portia Rey, roommate Contact Information Cesar: [phone], Leydi: [phone] Portia: [phone] Advance Directives? No: Declines further information History Provided By Patient Medical Record Prior Living Arrangements House Household Members other children Type of transporation used prior to Drives own vehicle admit Independent with ADL's Yes Is patient alert and oriented? Yes Barriers to Discharge No Comment Reviewed chart. Pt is POD#1 s/p extensive abd surgery/ resection d/t colorectal cancer stage II. Met w/pt and her 20 yo dtr Kate at bedside , explained SW role. Pt works fulltime at [employer] and plans to be out of work for at least 6 weeks. Pt a little groggy during our conversation but is able to explain she is indp at baseline and had planned to return home w/ assist from her family and roommate Portia. Portia will be available during the day, according to pt. OT= Home w/ assist. P: DC likely home when medically stable w/family and close outpt f/u. Following in case DC needs or concerns arise. Discharge Plan Home Transportation Arrangement Family Referrals Initiated None needed Whiteboard Updated in Patient Room with Yes name and ext. # of Physician Surgeon Review Status In Process
[2018-05-01 16:00] VITALS: BP 123/67; PULSE 76; RESP 20; TEMP 36.8; O2SAT 98
--- NOTE | 2018-05-01 17:58 | PM.PNPO.1 ---
Subjective Date Patient Seen: 05/01/18 Time Patient Seen: 17:59 Interval history: Patient postop day 1. Low anterior resection. She has some sore throat and a tickle in her throat. Pain is well controlled. She is a little sore in left lower quadrant where her incision is located. Exam Vital Signs (past 8 hours): - 05/01/18 12:12 05/01/18 16:00 Temperature 98.3 F 98.2 F Pulse Rate 84 76 Respiratory Rate 16 20 Blood Pressure 137/82 123/67 Pulse Oximetry 97 98 Oxygen Delivery Method Room Air Oxygen Flow Rate 0 Narrative Exam Narrative: Lungs pretty good effort. Clear anteriorly. Abdomen is soft little distended. Dressing is intact. Objective Labs Result Diagrams: 05/01/18 05:20 04/30/18 19:00 Labs: Laboratory Results - last 24 hr 04/30/18 04/30/18 05/01/18 17:40 19:00 05:20 WBC 11.0 RBC 3.78 L Hgb 11.2 L Hct 32.5 L MCV 86.0 MCH 29.7 MCHC 34.6 RDW 14.5 Plt Count 153 Neut % (Auto) 91.1 H Lymph % (Auto) 4.3 L [place] % (Auto) 4.5 Eos % (Auto) 0.0 L Baso % (Auto) 0.1 Neut # (Auto) 40345 H Lymph # (Auto) 500 L [place] # (Auto) 500 Eos # (Auto) 0 Baso # (Auto) 0 Sodium 139 Potassium 3.6 Chloride 104 Carbon Dioxide 26 BUN 8 Creatinine 0.60 Estimated GFR > 60.0 BUN/Creatinine Ratio 13.3 Glucose 173 H Calcium 8.3 L Total Bilirubin 1.2 AST 55 H ALT 66 H Alkaline Phosphatase 57 Total Protein 6.1 L Albumin 3.7 Globulin 2.4 Albumin/Globulin Ratio 1.5 Nasal Screen MRSA (PCR) Negative for mrsa Assessment & Plan Post-op Postoperative Procedures Operation Date: 04/30/18 07:45 Actual Procedures Side Surgeon p Laparoscopically Assisted Colectomy Low Anterior resection Rashaun Douglas MD Postoperative status: doing well Postoperative status narrative: Acute blood loss anemia secondary to losses in the OR. Very long operative procedure. Postoperative plan narrative: Start chemical DVT prophylaxis. Continue IV fluids. Continue to observe. Quality VTE Deep Vein Thrombosis/Pulmonary Embolism Present on Admission: No
[2018-05-01 20:00] VITALS: BP 135/74; PULSE 77; RESP 20; TEMP 36.3; O2SAT 97
[2018-05-01] MEDS: BENZOCAINE/MENTHOL 1 LOZ PKT 1 EACH PO (20:45)
[2018-05-01] MEDS: ENOXAPARIN 40 MG/0.4 ML SYRINGE SUBCUT (20:45)
--- NOTE | 2018-05-01 21:23 | PC.NURSE ---
2030 - Pt resting quietly. Reports pain controlled with epidural and BROADCAST PRODUCER. Reinforced IS and skin integrity education. Pt able to sit up briefly for epidural site assessment. Denies nausea. No flatus. IV fluid infusing. Adequate urine output. Call light in reach.
[2018-05-02] VITALS: BP 109/71; PULSE 73; RESP 16; TEMP 36.1; O2SAT 96
[2018-05-02] MEDS: LACTATED RINGERS 1,000 ML 150 ML IV ×4 (02:11→22:23)
[2018-05-02] MEDS: BUPIVACAINE 0.5% (PF) 25 ML in SODIUM CHLORIDE 0.9% 75 ML 8 ML EPIDURAL (04:11)
[2018-05-02 04:24] VITALS: BP 120/58; PULSE 89; RESP 17; TEMP 36.4; O2SAT 96
[2018-05-02 05:40] LABS: Add Manual Diff / Slide Review NO; Basophils Absolute Auto 0 /uL (0-100); Basophils Percent Auto 0.1 % (0-2); Eosinophils Absolute Auto 0 /uL (0-450); Hematocrit 27.1 % (36-46); Hemoglobin 9.4 g/dL (12.0-16.0); Lymphocytes Absolute Auto 1000 /uL (1100-4500); Lymphocytes Percent Auto 12.4 % (25-40); Mean Corpuscular HGB Conc 34.7 % (30-36); Mean Corpuscular Hemoglobin 29.7 PG (26-34); Mean Corpuscular Volume 85.8 fL (80-100); Monocytes Absolute Auto 500 /uL (0-900); Neutrophils Absolute Auto 6700 /uL (1500-7000); Neutrophils Percent Auto 81.5 % (50-75); Platelet Count 126 X10^3/uL (150-400); Red Blood Cell Count 3.16 X10^6/uL (4.0-5.2); Red Cell Distribution Width 14.7 % (11.6-14.8); White Blood Cell Count 8.3 X10^3/uL (4.5-11.0)
[2018-05-02] MEDS: MORPHINE PCA 30 MG/30 ML PCA.VIAL IV ×2 (06:06→13:44)
[2018-05-02 08:00] VITALS: BP 123/81; PULSE 84; RESP 18; TEMP 37.1; O2SAT 96
[2018-05-02] MEDS: ENOXAPARIN 40 MG/0.4 ML SYRINGE SUBCUT (09:25)
[2018-05-02] MEDS: GABAPENTIN 300 MG CAPSULE PO ×2 (09:25→22:25)
[2018-05-02 12:00] VITALS: BP 138/92; PULSE 71; RESP 20; TEMP 37.1; O2SAT 96
--- NOTE | 2018-05-02 12:02 | PM.PN.1 ---
Exam Vital Signs (past 8 hours): - 05/02/18 04:24 05/02/18 08:00 Temperature 97.6 F 98.8 F Pulse Rate 89 84 Respiratory Rate 17 18 Blood Pressure 120/58 L 123/81 Pulse Oximetry 96 96 Oxygen Delivery Method Room Air Oxygen Flow Rate 0 Narrative Exam Narrative: Good pain control, however, it appears epidural is not working. There is no temperature sensitivity difference between shoulders, abdomen, legs, or arms. Will give a bolus injection of 10cc 0.25% bupivicaine and retest. If no evidence of any effect, will remove epidural. Back/Spine/Pelvis Back: other (Slight hemorrhage at epidural site, old) Objective Labs Result Diagrams: 05/02/18 04:42 04/30/18 19:00 Labs: Laboratory Results - last 24 hr 05/02/18 04:42 WBC 8.3 RBC 3.16 L Hgb 9.4 L Hct 27.1 L MCV 85.8 MCH 29.7 MCHC 34.7 RDW 14.7 Plt Count 126 L Neut % (Auto) 81.5 H Lymph % (Auto) 12.4 L [place] % (Auto) 6.0 Eos % (Auto) 0.0 L Baso % (Auto) 0.1 Neut # (Auto) 6700 Lymph # (Auto) 1000 L [place] # (Auto) 500 Eos # (Auto) 0 Baso # (Auto) 0 Quality VTE Deep Vein Thrombosis/Pulmonary Embolism Present on Admission: No
--- NOTE | 2018-05-02 12:06 | P.PN_ITS ---
Exam Vital Signs (past 8 hours): - 05/02/18 04:24 05/02/18 08:00 Temperature 97.6 F 98.8 F Pulse Rate 89 84 Respiratory Rate 17 18 Blood Pressure 120/58 L 123/81 Pulse Oximetry 96 96 Oxygen Delivery Method Room Air Oxygen Flow Rate 0 Narrative Exam Narrative: Good pain control, however, it appears epidural is not working. There is no temperature sensitivity difference between shoulders, abdomen, legs, or arms. Will give a bolus injection of 10cc 0.25% bupivicaine and retest. If no evidence of any effect, will remove epidural. Back/Spine/Pelvis Back: other (Slight hemorrhage at epidural site, old) Objective Labs Result Diagrams: 05/02/18 04:42 04/30/18 19:00 Labs: Laboratory Results - last 24 hr 05/02/18 04:42 WBC 8.3 RBC 3.16 L Hgb 9.4 L Hct 27.1 L MCV 85.8 MCH 29.7 MCHC 34.7 RDW 14.7 Plt Count 126 L Neut % (Auto) 81.5 H Lymph % (Auto) 12.4 L [place] % (Auto) 6.0 Eos % (Auto) 0.0 L Baso % (Auto) 0.1 Neut # (Auto) 6700 Lymph # (Auto) 1000 L [place] # (Auto) 500 Eos # (Auto) 0 Baso # (Auto) 0 Quality VTE Deep Vein Thrombosis/Pulmonary Embolism Present on Admission: No
--- NOTE | 2018-05-02 12:34 | P.PN_ITS ---
Exam Vital Signs (past 8 hours): - 05/02/18 08:00 05/02/18 12:00 Temperature 98.8 F 98.8 F Pulse Rate 84 71 Respiratory Rate 18 20 Blood Pressure 123/81 138/92 H Pulse Oximetry 96 96 Oxygen Delivery Method Room Air Oxygen Flow Rate 0 Narrative Exam Narrative: Improved with bolus injection of 10cc 0.25% bupivicaine, now notes differences in temp from shoulder to abdomen, less discomfort on moving. Will increase concentration to 0.25% bupivicaine at 6cc/hr. Objective Labs Result Diagrams: 05/02/18 04:42 04/30/18 19:00 Labs: Laboratory Results - last 24 hr 05/02/18 04:42 WBC 8.3 RBC 3.16 L Hgb 9.4 L Hct 27.1 L MCV 85.8 MCH 29.7 MCHC 34.7 RDW 14.7 Plt Count 126 L Neut % (Auto) 81.5 H Lymph % (Auto) 12.4 L [place] % (Auto) 6.0 Eos % (Auto) 0.0 L Baso % (Auto) 0.1 Neut # (Auto) 6700 Lymph # (Auto) 1000 L [place] # (Auto) 500 Eos # (Auto) 0 Baso # (Auto) 0 Quality VTE Deep Vein Thrombosis/Pulmonary Embolism Present on Admission: No
[2018-05-02] MEDS: BUPIVACAINE 0.25% (PF) VIAL 10 ML INJ (12:37)
--- NOTE | 2018-05-02 12:37 | P.PN_ITS ---
Exam Vital Signs (past 8 hours): - 05/02/18 08:00 05/02/18 12:00 Temperature 98.8 F 98.8 F Pulse Rate 84 71 Respiratory Rate 18 20 Blood Pressure 123/81 138/92 H Pulse Oximetry 96 96 Oxygen Delivery Method Room Air Oxygen Flow Rate 0 Narrative Exam Narrative: improved pain control with bolus injection 10cc 0.25% marcaine. Will increase infusion concentration to 0.25% and reduce rate to 6cc/hr. Objective Labs Result Diagrams: 05/02/18 04:42 04/30/18 19:00 Labs: Laboratory Results - last 24 hr 05/02/18 04:42 WBC 8.3 RBC 3.16 L Hgb 9.4 L Hct 27.1 L MCV 85.8 MCH 29.7 MCHC 34.7 RDW 14.7 Plt Count 126 L Neut % (Auto) 81.5 H Lymph % (Auto) 12.4 L [place] % (Auto) 6.0 Eos % (Auto) 0.0 L Baso % (Auto) 0.1 Neut # (Auto) 6700 Lymph # (Auto) 1000 L [place] # (Auto) 500 Eos # (Auto) 0 Baso # (Auto) 0 Quality VTE Deep Vein Thrombosis/Pulmonary Embolism Present on Admission: No
--- NOTE | 2018-05-02 12:46 | PM.PN.1 ---
Subjective Date Patient Seen: 05/02/18 Time Patient Seen: 12:46 Interval history: Postop day 2 and doing remarkably well after a low anterior resection. Aydee says her pain is well controlled and she pushes the ?Happy button? when she is standing up or moving around in the bed. She denies any nausea. She has been using her incentive spirometer and adds that it makes her cough. Exam Vital Signs (past 8 hours): - 05/02/18 08:00 05/02/18 12:00 Temperature 98.8 F 98.8 F Pulse Rate 84 71 Respiratory Rate 18 20 Blood Pressure 123/81 138/92 H Pulse Oximetry 96 96 Oxygen Delivery Method Room Air Oxygen Flow Rate 0 Narrative Exam Narrative: Lungs are clear to auscultation bilaterally with good air movement Heart: Regular rate and rhythm without murmur Abdomen: Soft, wounds are clean dry and intact with dressings in place. Active bowel sounds. Extremities: Warm and well perfused Objective Labs Result Diagrams: 05/02/18 04:42 04/30/18 19:00 Labs: Laboratory Results - last 24 hr 05/02/18 04:42 WBC 8.3 RBC 3.16 L Hgb 9.4 L Hct 27.1 L MCV 85.8 MCH 29.7 MCHC 34.7 RDW 14.7 Plt Count 126 L Neut % (Auto) 81.5 H Lymph % (Auto) 12.4 L [place] % (Auto) 6.0 Eos % (Auto) 0.0 L Baso % (Auto) 0.1 Neut # (Auto) 6700 Lymph # (Auto) 1000 L [place] # (Auto) 500 Eos # (Auto) 0 Baso # (Auto) 0 Assessment & Plan Plan: Assessment/Plan Narrative: Postop day 2 after a low anterior section. Check electrolytes in the morning. Continue other care. Epidural as per Dr. Topete's note. Quality VTE Deep Vein Thrombosis/Pulmonary Embolism Present on Admission: No
--- NOTE | 2018-05-02 12:58 | PC.NURSE ---
Pt reported no loss of sensation of across dermatones in abdominal area. Dr Topete gave bolus of bupivocaine with pt reporting numbness on left side dermatone T10 -12. Pt reports she has a high pain threshold and is able to move her self in bed now that the epidural is working well. Dressing to epidural site has some older bloody drainage but in tact. Seen by Dr Topete and not changed at this time. Pt denies passing flatus but is positive for bowel tones. Abdomen soft. Architectural Renderer N/V and tolerating clear liquid diet. O2 sats = 97% on RA.
[2018-05-02] MEDS: SODIUM CHLORIDE 0.9% EPIDURAL (13:40)
[2018-05-02] MEDS: BUPIVACAINE 0.5% EPIDURAL (13:40)
--- NOTE | 2018-05-02 14:42 | OT.IP.TRT ---
Current Diagnoses Malignant neoplasm of rectosigmoid junction (04/30/18) Surgery Performed Operation Date: 04/30/18 07:45 Actual Procedures p Laparoscopically Assisted Colectomy Low Anterior resection - Rashaun Douglas MD Occupational Therapy Treatment Note M2 OT-IP Current Condition Start: 05/01/18 13:08 Freq: Status: Active Protocol: Document 05/01/18 13:08 [facility] (Rec: 05/01/18 13:49 [facility] [id number]) Occupational Therapy Current Condition Current Condition Evaluation Date 05/01/18 Treatment Diagnosis Colorectal cancer s/p partial removal of colon Diagnosis Onset Date 04/30/18 Post Operative Precautions Abdominal Surgery Precautions Log Roll Lifting Restrictions Gait Belt above Incisional Area M3 OT- IP Subjective and Pain Start: 05/01/18 13:08 Freq: Status: Active Protocol: Document 05/02/18 14:32 [facility] (Rec: 05/02/18 14:42 [facility] [id number]) OT- Subjective Occupational Therapy Visit Type Type Treatment Note Visit Start Time 13:05 Visit Stop Time 13:15 Total Visit Minutes 10 Occupational Therapy Visit Comments Patient Comments Pt wanting to get up and walk in the room. OT Pain Assessment Pain When Pain Assessed At Rest Pain Present Pain Present Denied Pain M4 OT- IP ADL's Start: 05/01/18 13:08 Freq: Status: Active Protocol: Document 05/01/18 13:08 [facility] (Rec: 05/01/18 13:49 [facility] [id number]) OT PIV-Ijlv-Nudlaim Comments OT Self-Feeding Comments Pt able having clear liquids at this time and states throat feels a bit scratchy but otherwise no issues with swallowing. OT ADL-Grooming General Evaluation Areas Needing Assistance Retrieving/Set-up of Grooming Items Comments OT Grooming Comments Assist to open film from toothpaste top, pt have o2 sensor on her right hand therefore making it difficult to do set-up fro grooming needs. OT ADL-Oral Care General Eval Oral Care Ability Independent Comments Oral Care Comments Independent from edge of bed with tray table in front of her. OT ADL-Dressing General Eval Lower Body Dressing Ability Minimal Assistance Areas Needing Assistance Socks Comments OT Dressing Comments Pt able to reach to do socks and needing assist to doff to right foot, able to show pt nanotechnician and sock aid if needed . However as pt progresses will not have any issues for dressing needs. OT ADL-Toileting Comments OT Toileting Comments Pt has catheter in. OT ADL-Bathing Bathing Type Bathing Type Sponge Bath General Evaluation Bathing Ability Moderate Assistance Areas Needing Assistance Wash/Dry Back Wash/Dry Lower Extremities Comments OT Bathing Comments Pt needing assist for back, lower legs to wash and dry. Suggested bath brush will be helpful at home in addition to a shower chair. M5 OT- IP IADL's Start: 05/01/18 13:08 Freq: Status: Active Protocol: Document 05/01/18 13:08 [facility] (Rec: 05/01/18 13:49 [facility] [id number]) OT-Instrumental Activities of Daily Living Director Power Director Power Comments Pt will need assist initially and states kids to help at home due to recent surgery. M6 OT- IP Functional Cognition Start: 05/01/18 13:08 Freq: Status: Active Protocol: Document 05/01/18 13:08 [facility] (Rec: 05/01/18 13:49 [facility] [id number]) Cognitive Factors Limiting Selfcare Function Cognitive Ability Level of Alertness Alert Patient Orientation Name Day of Week Place Situation Attention Span Ability Capable of Focused Attention Capable of Sustained Attention Ability to Follow Commands Able to Follow Multi-Step Commands Memory Description No Deficits Noted Safety Awareness No Deficits Noted Problem Solving Ability No deficits Noted Cognitive Comments Cognitive Assessment Comments Pt able to follow multiple commands and good safety awareness for needs at this time. OT- Vision and Hearing OT- Hearing Assessment OT- Hearing Assessment WFL OT- Vision Assessment Visual Acuity WFL M7 OT- IP Mobility and Balance Start: 05/01/18 13:08 Freq: Status: Active Protocol: Document 05/02/18 14:32 [facility] (Rec: 05/02/18 14:42 [facility] [id number]) OT- Bed Mobility Assessment Rolling Level of Assistance Standby Assistance Head of Bed Elevated Bedrails OT-Transfer Assessment Sit to and From Stand Sit to and from Stand Standby Assistance 1 Person Assistance Transfers Transfer Ability Standby Assistance 1 Person Assistance Technique Transfer Destination Chair Transfer Technique Stand Step Pivot Devices Transfer Assistive Devices None Gait Belt Comments Mobility Comments Pt SBA for pt to get up for getting from the bed with HOB up. Pt able to stand with use of iv pole for steadying and able to push the IV pole to walk around the bed with good safety. OT- Balance Assessment Sitting Balance and Reactions Static Sitting Balance Ability Normal Dynamic Sitting Balance Ability Normal Standing Balance and Reactions Static Standing Balance Ability Good Dynamic Standing Balance Ability Fair M8 OT- IP Objective Assessments Start: 05/01/18 13:08 Freq: Status: Active Protocol: Document 05/01/18 13:08 [facility] (Rec: 05/01/18 13:49 [facility] [id number]) OT Gross Range of Motion Upper Extremity Range of Motion Assessment Within Functional Limits OT Strength Upper Extremity Strength Assessment Within Functional Limits Comments Strength Comments BUE equal 4+/5 throughout. OT- Coordination Assessment Comments Coordination Comments WFL for set-up of tray. M9 OT- IP Assessment and Plan Start: 05/01/18 13:08 Freq: Status: Active Protocol: Document 05/02/18 14:32 [facility] (Rec: 05/02/18 14:42 [facility] [id number]) OT Summary Assessment and Plan Potential Rehabilitation Potential Excellent Analytic Complexity at Evaluation Low Summary OT Impairments Functional Mobility Progress Towards Goals Progressing Toward Goals Assessment Summary Pt doing well and able to tolerate standing today and walking around the bed with IV pole. Pt states not ready to walk more. At this time pt to be discharged from OT services as nursing able to walk with pt and aware to progress her for distance as needed. Goals Days to Meet Goals 1 Frequency of Treatment Frequency Of Treatment Once a Day Discharge Recommendations OT Discharge Recommendations Home with Assistance Home Equipment Needs shower chair, HHSP, nanotechnician
[2018-05-02 16:34] VITALS: BP 129/79; PULSE 83; RESP 18; TEMP 36.8; O2SAT 97
[2018-05-02 20:59] VITALS: BP 129/85; PULSE 76; RESP 16; TEMP 36.7; O2SAT 95
[2018-05-02] MEDS: MORPHINE PCA 30 MG/30 ML PCA.VIAL 4 MG IV (22:26)
--- NOTE | 2018-05-02 22:54 | PC.NURSE ---
keon note Pt thought she was passing flatus, but had liquid stool. Got pt into shower stall to wash from waist down. Had sticky yellow-brown stool. Epidural intact.
[2018-05-03] VITALS (7 sets, daily range): BP systolic 122–149; BP diastolic 75–96; PULSE 74–88; RESP 16–20; TEMP 36.4–37.1; O2SAT 93–97
[2018-05-03] MEDS: LACTATED RINGERS 1,000 ML 150 ML IV ×2 (04:50→13:38)
[2018-05-03] MEDS: SODIUM CHLORIDE 0.9% EPIDURAL ×2 (04:50→19:39)
[2018-05-03] MEDS: BUPIVACAINE 0.5% EPIDURAL ×2 (04:50→19:39)
[2018-05-03 05:34] LABS: BUN Creatinine Ratio 8.3 (6-22); Blood Urea Nitrogen 5 mg/dL (7-17); Calcium 8.1 mg/dL (8.4-10.2); Carbon Dioxide 30 mmol/L (22-32); Chloride 105 mmol/L (98-107); Estimated Glomerular Filt Rate > 60.0 mL/min (>60); Glucose 93 mg/dL (70-100); HEMOLYSIS < 15 (0-50); Potassium 3.4 mmol/L (3.4-5.1); Sodium 141 mmol/L (137-145)
[2018-05-03] MEDS: MORPHINE PCA 30 MG/30 ML PCA.VIAL IV ×3 (06:38→22:52)
[2018-05-03] MEDS: GABAPENTIN 300 MG CAPSULE PO ×2 (08:40→22:49)
--- NOTE | 2018-05-03 09:02 | PC.NURSE ---
Addendum entered by Jackeline Eaton R.N. 05/03/18 15:03: EPIDURAL - Dr. Topete in this afternoon and admin addl injection marcaine, currently checking bp q 5 minutes for 30minutes, bp now 118/80, md advised hold lovenox in am, hold placed. Original Note: Addendum entered by Jackeline Eaton R.N. 05/03/18 10:54: GI/INTEG - pt up to BR with small loose stool, ret to bed, in and abd dsg removed, steristrips intact w/small qty old serosang. Original Note: AM NOTE - pt is alert, texting on phone, reports abd discomfort 4 on scale 0/10, abd is soft with some distention, +bt, hypo, greater ruq, epidural catheter is intact, small qty old serosang around insertion site, secured w/op site, 0.5% bupivacaine at 6ml/hr, ground crewman mission support morphine 04/09/29, states has sensation at the torso, abd area t8-11 but states she feels that the epidural is controlling discomfort adequately, lr at 150ml/hr, 1+ pedal edema, hr reg, 02 sat 96% bs, clear, has had some liq stool at times and this am, standby assist oob to BR w/small brown loose bm, business performance analyst assisted with standby ambul around icu area prior to ret to chair for clear liq, reinaldo w/o nausea.
--- NOTE | 2018-05-03 15:05 | PM.PN.1 ---
Exam Vital Signs (past 8 hours): - 05/03/18 07:38 05/03/18 11:00 Temperature 97.6 F 98.0 F Pulse Rate 74 82 Respiratory Rate 18 17 Blood Pressure 130/88 140/96 H Pulse Oximetry 94 95 Oxygen Delivery Method Room Air Oxygen Flow Rate 0 Narrative Exam Narrative: Epidural site intact, no additional bldg, no leaking. Pain relief has decreased from bolus injection, but improved over previous injection rate. Will retest with bolus injection of 10 cc 0.25% marcaine and increase infusion to 8cc/hr if improved pain relief from bolus. Plan on removing tomorrow. Continues to do well. Objective Labs Result Diagrams: 05/02/18 04:42 05/03/18 04:55 Labs: Laboratory Results - last 24 hr 05/03/18 04:55 Sodium 141 Potassium 3.4 Chloride 105 Carbon Dioxide 30 BUN 5 L Creatinine 0.60 Estimated GFR > 60.0 BUN/Creatinine Ratio 8.3 Glucose 93 Calcium 8.1 L Quality VTE Deep Vein Thrombosis/Pulmonary Embolism Present on Admission: No
[2018-05-03] MEDS: LACTATED RINGERS 1,000 ML 100 ML IV (19:28)
[2018-05-03] MEDS: CALCIUM CARBONATE 500 MG TAB 1000 MG PO (22:48)
[2018-05-03] MEDS: PANTOPRAZOLE 40 MG VIAL IV (22:48)
--- NOTE | 2018-05-03 23:57 | PC.NURSE ---
keon note pt having loose yellow stools. Pt c/o acid reflux and mouth feeling raw, as if she had drank a large amount of orange juice. COLTON Henderson called Dr. Casas to discuss this and received new med orders. No numbness from epidural . Epidural drsg intact with old dry red drainage under drsg.
[2018-05-04] VITALS: BP 123/76; PULSE 90; RESP 18; TEMP 36.7; O2SAT 96
[2018-05-04 04:41] VITALS: BP 154/68; PULSE 76; RESP 16; TEMP 36.3; O2SAT 96
[2018-05-04] MEDS: LACTATED RINGERS 1,000 ML 100 ML IV (05:47)
[2018-05-04] MEDS: BUPIVACAINE 0.5% EPIDURAL (06:44)
[2018-05-04] MEDS: SODIUM CHLORIDE 0.9% EPIDURAL (06:44)
[2018-05-04] MEDS: MORPHINE PCA 30 MG/30 ML PCA.VIAL IV ×2 (06:46→13:27)
[2018-05-04 08:00] VITALS: BP 134/81; PULSE 80; RESP 16; TEMP 36.9; O2SAT 97
[2018-05-04] MEDS: GABAPENTIN 300 MG CAPSULE PO ×2 (08:36→20:29)
[2018-05-04] MEDS: PANTOPRAZOLE 40 MG VIAL IV (08:36)
--- NOTE | 2018-05-04 09:47 | PC.NURSE ---
Call to Dr Topete for update on epidural. Order to turn off at 0830, which was done,then Dr Topete reviewed at 0940 and wanted one more hour of it turned off, then will possibly dc altogether.
--- NOTE | 2018-05-04 10:53 | PM.PN.1 ---
Subjective Date Patient Seen: 05/04/18 Time Patient Seen: 10:53 Interval history: Patient resting well. She did have some lightheadedness and mild dizziness yesterday in conjunction with some reflux symptoms which have now resolved with Tums. Currently she is feeling relatively well. Passing flatus and had a small liquid bowel movement this morning. Still feels subjectively distended however. No nausea or vomiting but no real appetite as yet. Has been out of bed with assistance. Denies any subjective fever or chills. No chest pain or shortness of breath. Exam Vital Signs (past 8 hours): - 05/04/18 04:41 05/04/18 08:00 Temperature 97.3 F L 98.4 F Pulse Rate 76 80 Respiratory Rate 16 16 Blood Pressure 154/68 H 134/81 Pulse Oximetry 96 97 Oxygen Delivery Method Room Air Oxygen Flow Rate 0 Narrative Exam Narrative: Well-nourished well-developed female resting comfortably in bed in no acute distress. Alert oriented x3. Patient seen and examined with the attending nurseLena Chest clear to auscultation bilaterally with regular rate rhythm. No murmurs. No crackles or wheezes. Abdomen is soft and mildly distended but not particularly tympanitic. She does have active bowel sounds. Wounds are clean, dry, and intact without erythema or ecchymosis. She is appropriately tender to palpation without guarding or rebound. Epidural has been turned off within the last hour or so per the anesthesiology service. Patient states that the FISHER TERRAPIN is working well for her at this time. Extremities show no clubbing or cyanosis. She moves all extremities without any issues. No numbness. Objective Labs Result Diagrams: 05/02/18 04:42 05/03/18 04:55 Labs: No new radiographic studies for review. No laboratory studies today. Assessment & Plan Plan: Assessment/Plan Narrative: 43-year-old female postoperative day 4 from laparoscopic assisted low anterior resection for colon cancer who is doing well. She is having return of early bowel function. We will discontinue the epidural catheter today as per the anesthesiology service. Removed the Dial catheter approximately 6 hr thereafter. I discussed this with her in detail. Repeat laboratory studies tomorrow. Continue clear liquids only for now but add Ensure supplementation. Changed to maintenance IV fluids at a lower rate as she appears to be well-hydrated with adequate fluid balance. Out of bed as tolerated once the above catheters are removed. All questions were answered to her satisfaction, and she voiced understanding. Orders were written. Quality VTE Deep Vein Thrombosis/Pulmonary Embolism Present on Admission: No
--- NOTE | 2018-05-04 10:57 | P.PN_ITS ---
Subjective Date Patient Seen: 05/04/18 Time Patient Seen: 10:53 Interval history: Patient resting well. She did have some lightheadedness and mild dizziness yesterday in conjunction with some reflux symptoms which have now resolved with Tums. Currently she is feeling relatively well. Passing flatus and had a small liquid bowel movement this morning. Still feels subjectively distended however. No nausea or vomiting but no real appetite as yet. Has been out of bed with assistance. Denies any subjective fever or chills. No chest pain or shortness of breath. Exam Vital Signs (past 8 hours): - 05/04/18 04:41 05/04/18 08:00 Temperature 97.3 F L 98.4 F Pulse Rate 76 80 Respiratory Rate 16 16 Blood Pressure 154/68 H 134/81 Pulse Oximetry 96 97 Oxygen Delivery Method Room Air Oxygen Flow Rate 0 Narrative Exam Narrative: Well-nourished well-developed female resting comfortably in bed in no acute distress. Alert oriented x3. Patient seen and examined with the attending nurseLena Chest clear to auscultation bilaterally with regular rate rhythm. No murmurs. No crackles or wheezes. Abdomen is soft and mildly distended but not particularly tympanitic. She does have active bowel sounds. Wounds are clean, dry, and intact without erythema or ecchymosis. She is appropriately tender to palpation without guarding or rebound. Epidural has been turned off within the last hour or so per the anesthesiology service. Patient states that the ORACLE OBIEE DEVELOPER is working well for her at this time. Extremities show no clubbing or cyanosis. She moves all extremities without any issues. No numbness. Objective Labs Result Diagrams: 05/02/18 04:42 05/03/18 04:55 Labs: No new radiographic studies for review. No laboratory studies today. Assessment & Plan Plan: Assessment/Plan Narrative: 43-year-old female postoperative day 4 from laparoscopic assisted low anterior resection for colon cancer who is doing well. She is having return of early bowel function. We will discontinue the epidural catheter today as per the anesthesiology service. Removed the Dial catheter approximately 6 hr thereafter. I discussed this with her in detail. Repeat laboratory studies tomorrow. Continue clear liquids only for now but add Ensure supplementation. Changed to maintenance IV fluids at a lower rate as she appears to be well- hydrated with adequate fluid balance. Out of bed as tolerated once the above catheters are removed. All questions were answered to her satisfaction, and she voiced understanding. Orders were written. Quality VTE Deep Vein Thrombosis/Pulmonary Embolism Present on Admission: No
--- NOTE | 2018-05-04 11:00 | PM.PN.1 ---
Exam Vital Signs (past 8 hours): - 05/04/18 04:41 05/04/18 08:00 Temperature 97.3 F L 98.4 F Pulse Rate 76 80 Respiratory Rate 16 16 Blood Pressure 154/68 H 134/81 Pulse Oximetry 96 97 Oxygen Delivery Method Room Air Oxygen Flow Rate 0 Objective Labs Result Diagrams: 05/02/18 04:42 05/03/18 04:55 Assessment & Plan Plan: Assessment/Plan Narrative: Good pain control. Epidural off for 2 hours. Will D/C. Epidural cath removed intact, no complications. Bandaid applied to introduction site. Quality VTE Deep Vein Thrombosis/Pulmonary Embolism Present on Admission: No
[2018-05-04] MEDS: DEXTROSE 5%-NS W/KCL 20MEQ 1,000 ML 84 MEQ IV ×2 (11:18→20:20)
[2018-05-04 12:00] VITALS: BP 133/86; PULSE 74; RESP 16; TEMP 37; O2SAT 98
--- NOTE | 2018-05-04 14:05 | PC.NURSE ---
Dr Topete removed epidural at 1100. Plan to dc pablo at 1700 and start lovenox at 1600. Pt ambulating in room independently. Reports 2/10 pain at this time.
[2018-05-04 16:02] VITALS: BP 131/97; PULSE 76; RESP 16; TEMP 37; O2SAT 99
[2018-05-04 20:00] VITALS: BP 135/89; PULSE 85; RESP 19; TEMP 37.2
[2018-05-04] MEDS: ENOXAPARIN 40 MG/0.4 ML SYRINGE SUBCUT (20:29)
[2018-05-04] MEDS: MORPHINE PCA 30 MG/30 ML PCA.VIAL 14.3 MG IV (21:56)
--- NOTE | 2018-05-04 23:00 | PC.NURSE ---
keon note pt showered after Dial removed. Bandaid to back CDI. Pt using ice packs and PROFESSIONAL CASTER for abd pain control.
[2018-05-05] VITALS: BP 121/66; PULSE 85; RESP 18; TEMP 37; O2SAT 98
[2018-05-05 04:54] LABS: Add Manual Diff / Slide Review NO; Basophils Absolute Auto 0 /uL (0-100); Basophils Percent Auto 0.5 % (0-2); Eosinophils Absolute Auto 100 /uL (0-450); Eosinophils Percent Auto 2.3 % (2-4); Hematocrit 32.4 % (36-46); Lymphocytes Absolute Auto 1200 /uL (1100-4500); Lymphocytes Percent Auto 24.5 % (25-40); Mean Corpuscular HGB Conc 34.1 % (30-36); Mean Corpuscular Hemoglobin 29.3 PG (26-34); Monocytes Absolute Auto 300 /uL (0-900); Monocytes Percent Auto 6.1 % (3-14); Neutrophils Absolute Auto 3100 /uL (1500-7000); Neutrophils Percent Auto 66.6 % (50-75); Platelet Count 167 X10^3/uL (150-400); Red Blood Cell Count 3.76 X10^6/uL (4.0-5.2); Red Cell Distribution Width 14.4 % (11.6-14.8); White Blood Cell Count 4.7 X10^3/uL (4.5-11.0)
[2018-05-05 05:03] LABS: Blood Urea Nitrogen 4 mg/dL (7-17); Calcium 8.6 mg/dL (8.4-10.2); Carbon Dioxide 29 mmol/L (22-32); Chloride 103 mmol/L (98-107); Estimated Glomerular Filt Rate > 60.0 mL/min (>60); Glucose 124 mg/dL (70-100); HEMOLYSIS < 15 (0-50); Potassium 3.6 mmol/L (3.4-5.1); Sodium 140 mmol/L (137-145)
[2018-05-05] MEDS: MORPHINE PCA 30 MG/30 ML PCA.VIAL IV ×2 (05:52→14:10)
[2018-05-05 05:53] VITALS: BP 132/74; PULSE 86; RESP 18; O2SAT 96
[2018-05-05] MEDS: GABAPENTIN 300 MG CAPSULE PO ×2 (08:41→22:50)
[2018-05-05] MEDS: PANTOPRAZOLE 40 MG VIAL IV (08:41)
[2018-05-05] MEDS: DEXTROSE 5%-NS W/KCL 20MEQ 1,000 ML 84 MEQ IV (08:46)
--- NOTE | 2018-05-05 11:59 | PM.PNPO.1 ---
Subjective Date Patient Seen: 05/05/18 Time Patient Seen: 12:00 Interval history: Patient is still on clear liquids. Had bowel movements. 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 A little concerned about going home today. Exam Vital Signs (past 8 hours): - 05/05/18 05:53 Pulse Rate 86 Respiratory Rate 18 Blood Pressure 132/74 Pulse Oximetry 96 Oxygen Delivery Method Room Air Oxygen Flow Rate 0 Narrative Exam Narrative: Abdomen is soft. Her incision looks fine. No cellulitis. Objective Labs Result Diagrams: 05/05/18 04:41 05/05/18 04:41 Labs: Laboratory Results - last 24 hr 05/05/18 05/05/18 04:41 04:41 WBC 4.7 RBC 3.76 L Hgb 11.0 L Hct 32.4 L MCV 86.0 MCH 29.3 MCHC 34.1 RDW 14.4 Plt Count 167 Neut % (Auto) 66.6 Lymph % (Auto) 24.5 L [place] % (Auto) 6.1 Eos % (Auto) 2.3 Baso % (Auto) 0.5 Neut # (Auto) 3100 Lymph # (Auto) 1200 [place] # (Auto) 300 Eos # (Auto) 100 Baso # (Auto) 0 Sodium 140 Potassium 3.6 Chloride 103 Carbon Dioxide 29 BUN 4 L Creatinine 0.50 L Estimated GFR > 60.0 BUN/Creatinine Ratio 8.0 Glucose 124 H Calcium 8.6 Assessment & Plan Post-op Postoperative Procedures Operation Date: 04/30/18 07:45 Actual Procedures Side Surgeon p Laparoscopically Assisted Colectomy Low Anterior resection Rashaun Douglas MD Postoperative status: doing well Postoperative plan narrative: Will switch to p.o. pain medicine today. Will advance her diet to a general diet. Courage ambulation. Probable discharge in the morning. Quality VTE Deep Vein Thrombosis/Pulmonary Embolism Present on Admission: No
[2018-05-05 12:00] VITALS: BP 150/74; PULSE 70; RESP 18; TEMP 36.6; O2SAT 100
[2018-05-05] MEDS: OXYCODONE IR 5 MG TABLET 10 MG PO ×3 (12:53→22:50)
[2018-05-05] MEDS: IBUPROFEN 600 MG TABLET PO ×2 (12:54→18:32)
--- NOTE | 2018-05-05 14:50 | CM.DPC ---
DCP/continued: Reviewed chart. Patient is day#5. RN requesting that BOIL OFF MACHINE OPERATOR CLOTH meet with patient re: transportation options for potential d/c tomorrow. Met briefly with to discuss/confirm plan. Patient anticipates that she will d/c home tomorrow. Patient inquiring on timeframe of discharge because she has to coordinate ride. Notified patient that surgery is attending and it is unclear on time they will round. Patient reports that her roommate can pick her up tomorrow night around 7:00pm. Encouraged patient to have back up plan because it will most likely be earlier than that. Patient reports that she will see what she can do. P: Home when stable. JERRICA Ayala Discharge Planning/Care Management CM Discharge Assessment Start: 05/01/18 13:56 Freq: Status: Active Protocol: Document 05/01/18 13:56 AMADOR (Rec: 05/01/18 14:09 AMADOR [id number]) Discharge Planning Assessment Assigned Telemarketing Sales Representative JERRICA Greenfield DPOA/Assigned Designee Name Leydi Fisher, dtr Portia Rey, roommate Contact Information Cesar: [phone], Leydi: [phone] Portia: Advance Directives? No: Declines further information History Provided By Patient Medical Record Prior Living Arrangements House Household Members other children Type of transporation used prior to Drives own vehicle admit Independent with ADL's Yes Is patient alert and oriented? Yes Barriers to Discharge No Comment Reviewed chart. Pt is POD#1 s/ p extensive abd surgery/ resection d/t colorectal cancer stage II. Met w/pt and her 20 yo dtr Kate at bedside , explained SW role. Pt works fulltime at [employer] and plans to be out of work for at least 6 weeks. Pt a little groggy during our conversation but is able to explain she is indp at baseline and had planned to return home w/ assist from her family and roommate Portia. Portia will be available during the day, according to pt. OT= Home w/ assist. P: DC likely home when medically stable w/family and close outpt f/u. Following in case DC needs or concerns arise. Discharge Plan Home Transportation Arrangement Family Referrals Initiated None needed Whiteboard Updated in Patient Room with Yes name and ext. # of Telemarketing Sales Representative Review Status In Process Pre-Anesthesia Assessment Start: 04/24/18 08:56 Freq: Status: Complete Protocol: Document 04/24/18 08:56 [facility] (Rec: 04/24/18 09:42 CAB [id number]) Pre-Anesthesia Assessment Patient Information Reviewed Via Phone Assessment Assessment Completed With Patient Primary Care Provider Fernanda Esquivel Seen Specialist in Last 12 Months Yes Specialist Seen General surgeon Primary Language Swazi Height 167.64 cm Weight 102.512 kg Body Mass Index (BMI) 36.4 Hearing Ability Normal Visual Impairment No Limitations Visual Assist None Dentition Type Teeth, Natural Present Teeth, Broken Barriers to Learning None Other Aids No Hx Anesthesia Reactions No: Terrified of epidural, would like to be under before Hx Family Anesthesia Reaction No Hx Malignant Hyperthermia No Hx Blood Transfusions No Anesthesia Review Requested No Pull Socket Assembler No alcohol intake never Smoking Status Never smoker Substance Use Type marijuana Comment Edible marijuana History of Falling (Recent or History of No ) Patient is completely paralyzed or No completely immobile Mental Status Oriented to own ability Is patient on oxygen? No Does patient have CARRILLO/SOB No Hx Sleep Apnea No Currently Taking a Beta Jennifer No Can You Climb a Flight of Stairs Without Yes SOB Hx Chest Pain No Hx SOB No Hx Syncope or Dizziness No Anti-Coagulant Therapy No Has a Manager Orange No Cardiac Testing No Hx Pacemaker/ICD No Pacemaker Rep Required? No Cardiac Clearance Received Not Applicable Diet Type At Home Regular dysphagia No Urinary Catheter Present No Hx Urinary Self Catheterization No Diabetes No Patient No Lactating No Hx Drug Resistant Organism No Presence of External or Internal Medical No Devices Have you traveled outside the [facility] [place] in the last 30 days? Marital Status Legally Lives With other children Prior Living Arrangements House Number of Floors (Floors) One Floor Number of Stairs To Enter/Railing? none Support System Child/Children Friend(s) Patient Discharge Plan Description Return Home Comment Pt advised 4-7 day length of stay per surgeon's office Feels Safe in Current Environment Yes Been Physically Hurt or Threatened By a No Person in Current Environment Do you have thoughts of harming yourself None or others? Are you currently considering suicide? No Do you have a plan to hurt yourself or No Plan others? Do You Have Any Spiritual Beliefs That No May Affect Your HC Choices? Do You Have Any Cultural Practices That No May Affect Your HC Choices? Spiritual Referral None Comment Synagogue Who Can We Speak to About Patient's Care Family, friends Identifying Code for Release of Patient Declines to issue Information Health Care Proxy/Next of Kin Thanh Roldan () Health Care Proxy or [phone] Emergency Contact Name Portia Rey (Roommate) Emergency Contact Advance Directives? No: Declines further information Power of Privacy Analyst No PAC Instructions Medications to take/avoid No ETOH/petroleum product on skin DOS NPO Pre-op antibiotic Sturdy shoes/comfortable clothes Do not bring valuables and remove jewelry Discharge Planning/Care Management CM Discharge Assessment Start: 05/01/18 13:56 Freq: Status: Active Protocol: Document 05/01/18 13:56 AMADOR (Rec: 05/01/18 14:09 AMADOR [id number]) Discharge Planning Assessment Assigned Telemarketing Sales Representative JERRICA Greenfield DPOA/Assigned Designee Name Cesar RoldanLeydi, dtr Portia Rey, roommate Contact Information Cesar: [phone], Leydi: [phone] Portia: [phone] Advance Directives? No: Declines further information History Provided By Patient Medical Record Prior Living Arrangements House Household Members other children Type of transporation used prior to Drives own vehicle admit Independent with ADL's Yes Is patient alert and oriented? Yes Barriers to Discharge No Comment Reviewed chart. Pt is POD#1 s/ p extensive abd surgery/ resection d/t colorectal cancer stage II. Met w/pt and her 20 yo dtr Kate at bedside , explained SW role. Pt works fulltime at [employer] and plans to be out of work for at least 6 weeks. Pt a little groggy during our conversation but is able to explain she is indp at baseline and had planned to return home w/ assist from her family and roommate Portia. Portia will be available during the day, according to pt. OT= Home w/ assist. P: DC likely home when medically stable w/family and close outpt f/u. Following in case DC needs or concerns arise. Discharge Plan Home Transportation Arrangement Family Referrals Initiated None needed Whiteboard Updated in Patient Room with Yes name and ext. # of Telemarketing Sales Representative Review Status In Process Pre-Anesthesia Assessment Start: 04/24/18 08:56 Freq: Status: Complete Protocol: Document 04/24/18 08:56 CAB (Rec: 04/24/18 09:42 CAB [id number]) Pre-Anesthesia Assessment Patient Information Reviewed Via Phone Assessment Assessment Completed With Patient Primary Care Provider Fernanda Esquivel Seen Specialist in Last 12 Months Yes Specialist Seen General surgeon Primary Language Swazi Height 167.64 cm Weight 102.512 kg Body Mass Index (BMI) 36.4 Hearing Ability Normal Visual Impairment No Limitations Visual Assist None Dentition Type Teeth, Natural Present Teeth, Broken Barriers to Learning None Other Aids No Hx Anesthesia Reactions No: Terrified of epidural, would like to be under before Hx Family Anesthesia Reaction No Hx Malignant Hyperthermia No Hx Blood Transfusions No Anesthesia Review Requested No Pull Socket Assembler No alcohol intake never Smoking Status Never smoker Substance Use Type marijuana Comment Edible marijuana History of Falling (Recent or History of No ) Patient is completely paralyzed or No completely immobile Mental Status Oriented to own ability Is patient on oxygen? No Does patient have CARRILLO/SOB No Hx Sleep Apnea No Currently Taking a Beta Jennifer No Can You Climb a Flight of Stairs Without Yes SOB Hx Chest Pain No Hx SOB No Hx Syncope or Dizziness No Anti-Coagulant Therapy No Has a Manager Orange No Cardiac Testing No Hx Pacemaker/ICD No Pacemaker Rep Required? No Cardiac Clearance Received Not Applicable Diet Type At Home Regular dysphagia No Urinary Catheter Present No Hx Urinary Self Catheterization No Diabetes No Patient No Lactating No Hx Drug Resistant Organism No Presence of External or Internal Medical No Devices Have you traveled outside the [facility] [place] in the last 30 days? Marital Status Legally Lives With other children Prior Living Arrangements House Number of Floors (Floors) One Floor Number of Stairs To Enter/Railing? none Support System Child/Children Friend(s) Patient Discharge Plan Description Return Home Comment Pt advised 4-7 day length of stay per surgeon's office Feels Safe in Current Environment Yes Been Physically Hurt or Threatened By a No Person in Current Environment Do you have thoughts of harming yourself None or others? Are you currently considering suicide? No Do you have a plan to hurt yourself or No Plan others? Do You Have Any Spiritual Beliefs That No May Affect Your HC Choices? Do You Have Any Cultural Practices That No May Affect Your HC Choices? Spiritual Referral None Comment Synagogue Who Can We Speak to About Patient's Care Family, friends Identifying Code for Release of Patient Declines to issue Information Health Care Proxy/Next of Kin Thanh Roldan () Health Care Proxy or [phone] Emergency Contact Name Portia Rey (Roommate) Emergency Contact Advance Directives? No: Declines further information Power of Privacy Analyst No PAC Instructions Medications to take/avoid No ETOH/petroleum product on skin DOS NPO Pre-op antibiotic Sturdy shoes/comfortable clothes Do not bring valuables and remove jewelry
--- NOTE | 2018-05-05 14:50 | PC.NURSE ---
Pt doing well. Morphine HEEL NAILING MACHINE OPERATOR off and pain well controlled on POs. Tolerated reg diet without n/v. Plan is for d/c to home tomorrow.
[2018-05-05 15:39] VITALS: BP 122/85; PULSE 81; RESP 16; TEMP 36.1; O2SAT 95
[2018-05-05] MEDS: ENOXAPARIN 40 MG/0.4 ML SYRINGE SUBCUT (18:31)
[2018-05-05 19:44] VITALS: BP 118/62; PULSE 68; RESP 17; TEMP 36.5; O2SAT 99
[2018-05-06 00:07] VITALS: BP 129/78; PULSE 80; RESP 16; TEMP 37; O2SAT 99
[2018-05-06] MEDS: IBUPROFEN 600 MG TABLET PO (07:59)
[2018-05-06 08:00] VITALS: BP 130/74; PULSE 82; RESP 14; TEMP 37.2; O2SAT 97
[2018-05-06] MEDS: PANTOPRAZOLE 20 MG TABLET 40 MG PO (08:00)
[2018-05-06] MEDS: GABAPENTIN 300 MG CAPSULE PO (08:00)
[2018-05-06] MEDS: OXYCODONE IR 5 MG TABLET 10 MG PO (08:01)
[2018-05-06] MEDS: POLYETHYLENE GLYCOL 3350 17 GM POWD.PACK PO (08:02)
[2018-05-06 12:23] VITALS: BP 128/74; PULSE 69; RESP 14; TEMP 36.4; O2SAT 96
--- NOTE | 2018-05-06 15:11 | PC.NURSE ---
Addendum entered by Leonardo Mathews R.N. 05/06/18 15:30: Pt self administered lovenox correctly and tolerated well. Verbalizes and demonstrates understanding of teaching. Original Note: Pt to d/c home per order. Reviewed d/c packet, teaching regarding dx, post op instructions, diet, worsening s/s, post op wound infx s/s, medications, side effects, dosing schedule. Educated to use of lovenox. Written instruction has been given and reviewed with pt. She verbalizes understanding and voices no questions at this time. PIV removed with cath tip intact. Pt is awaiting ride home from roommate. Rx brought to [facility] pharmacy to be filled.
[2018-05-06] MEDS: ENOXAPARIN 40 MG/0.4 ML SYRINGE SUBCUT (15:25)
--- NOTE | 2018-05-06 16:35 | P.DS_ITS ---
History of Present Illness Date Patient Seen: 05/06/18 Time Patient Seen: 10:31 Chief complaint: [id number] PARTIAL REMOVAL OF COLON Narrative: Patient is a woman brought in for a low anterior resection of an early colorectal cancer. She had an outpatient bowel prep including oral antibiotics. Discharge Providers Date of admission: 04/30/18 06:00 Primary care physician: Fernanda Esquivel DO Consults: 04/30/18 17:52 Consult to Discharge Planning Routine Comment: 04/30/18 19:23 Consult to Occupational Therapy Evaluate & Treat Comment: right arm weakness, Post op Physician Instructions: Evaluate and treat Discharge provider: Rashaun Douglas MD Discharge Date: 05/06/18 Summary Discharge Diagnosis: Adenocarcinoma of the colorectal region. Acute blood loss anemia secondary to her operation Hospital Course: The patient was taken to the operating room where she underwent a very difficult low anterior resection. Postoperatively her recovery was quite smooth. She was begun on a diet which was ultimately advanced to regular diet. She began having bowel function early. She was ultimately discharged to follow up in the office. Status at Discharge Cognitive/behavioral status at discharge: Normal Functional status at discharge: independent ambulation Overall status at discharge: patient is progressing back to baseline Exam Vital Signs (past 8 hours): - 05/06/18 12:23 Temperature 97.6 F Pulse Rate 69 Respiratory Rate 14 Blood Pressure 128/74 Pulse Oximetry 96 Oxygen Delivery Method Room Air Oxygen Flow Rate 0 Narrative Exam Narrative: Operative no apparent distress. Lungs are clear to auscultation. Heart regular rate and rhythm without murmur gallop. Abdomen is soft no unusual tenderness. No cellulitis. Steri-Strips are beginning to come off. Incisions look fine. Objective Labs Result Diagrams: 05/05/18 04:41 05/05/18 04:41 Discharge Plan Discharge Plan Patient Disposition: Home Discharge comment: Your pathology report is not yet available. If you have any problems after you leave please call our office. I will not be available next week so another physician may answer your questions. Discharge Med Rec/Prescriptions Prescriptions: New hydrocodone-acetaminophen 5-325 mg tablet 1 tab PO Q4-6H PRN (Reason: pain) Qty: 20 RF: 0 gabapentin 300 mg capsule 300 mg PO BID Qty: 20 RF: 0 enoxaparin [Lovenox] 40 mg/0.4 mL syringe 40 mg SUBCUT DAILY Qty: 4 RF: 0 Continued ibuprofen 800 mg tablet 800 mg PO BID PRN (Reason: pain) RF: 0 erythromycin 500 mg tablet See Rx Instructions PO .COMPLEX Qty: 6 RF: 0 prochlorperazine maleate [Compazine] 10 mg tablet 10 mg PO Q6-8H PRN (Reason: nausea and vomiting) Qty: 3 RF: 0 levonorgestrel [Mirena] 20 mcg/24 hr (5 years) Intrauterine Device 1 dose Intrauterine CONT RF: 0 acetaminophen [Tylenol] 325 mg Capsule 650 mg PO Q4H PRN (Reason: Headache) RF: 0 cetirizine [Zyrtec] 10 mg Capsule 10 mg PO DAILY PRN (Reason: Cough, seasonal allergies) RF: 0 Follow up/Referrals: Rashaun Douglas MD [Physician] - 05/19/18 2:00 pm (If you need to reach a doctor after hours please call our office. Listen to the entire message and you will be connected at the end of that message to a page chemical process equipment operator) Fernanda Esquivel DO [Primary Care Provider] - Provider Discharge Instructions Diet: Diet as Tolerated Skin/Wound/Dressing Care Report to your healthcare provider any signs of infection, such as:: chills, fever, night sweats, increased pain, unusual drainage and unusual redness Visit Report/Discharge Packet Instructions: How to Care for a Surgical Wound, DI for Colectomy, DI for Laparoscopy, Enoxaparin Injection, Hydrocodone/Acetaminophen (By mouth) Discharge Data Primary Care Provider: Fernanda Esquivel Attending Provider: Rashaun Douglas Admit Date/Time: 04/30/18 06:00 Quality VTE Deep Vein Thrombosis/Pulmonary Embolism Present on Admission: No
== END 2018-05-06 16:30 | disposition home or self-care (01) | DRG 333 ==
LOC: AC 08:59 → ICU 12:37
PROVIDERS: Surgery; Admitting Provider Specialist; PCP Family Medicine; Visit Provider Specialist
PROC: 0DTE0ZZ Resection of Large Intestine, Open Approach (ICD-10-PCS; principal; 2018-04-30 07:45)
DX: C19 Malignant neoplasm of rectosigmoid junction (principal); D62 Acute posthemorrhagic anemia; R29.818 Other symptoms and signs involving the nervous system
CPT/HCPCS: 36415; 44139; 44145; 80048; 80053; 85025; 87797; 97165; 97530; 97535; C9113; J0330; J1100; J1170; J1650; J2250; J2405; J2704; J3010

== ENCOUNTER → 2018-06-09 16:55 | Outpatient (CLI) | payer OTHER, SELFPAY ==
[2018-04-30 18:03] VITALS: BMI 35.5
--- NOTE | 2018-06-09 16:58 | DI.RAD.S_ITS ---
PROCEDURE: XR ABDOMEN MIN 2V INDICATIONS: Unusual bloating after low anterior resection TECHNIQUE: 2 views of the abdomen were acquired. COMPARISON: None. FINDINGS: Surgical changes and devices: ICD is projected over the pelvis. Surgical clips are projected over the midabdomen. Bowel: No pneumoperitoneum. The bowel gas pattern is normal. Soft tissues: No masses; visualized solid organ contours appear normal in size. No suspicious abdominal calcifications. Scattered calcifications within the pelvis suggest the presence of phleboliths. Bones: No suspicious bony abnormalities. IMPRESSION: No acute intra-abdominal findings. Dictated by: Yvonne Dela Cruz M.D. on 06/10/2018 at 9:41 Approved by: Yvonne Dela Cruz M.D. on 06/10/2018 at 9:42
== END ==
PROVIDERS: PCP Family Medicine; Visit Provider Specialist
DX: R14.0 Abdominal distension (gaseous) (principal); Z98.890 Other specified postprocedural states
CPT/HCPCS: 74019

== ENCOUNTER 2018-09-01 07:55 | Day surgery (SDC) | payer OTHER, SELFPAY ==
[2018-04-30 18:03] VITALS: BMI 35.5
[2018-09-01] VITALS (7 sets, daily range): BP systolic 115–136; BP diastolic 71–91; PULSE 57–77; RESP 12–20; TEMP 35.9–36.4; O2SAT 95–99; BMI 37.7
--- NOTE | 2018-09-01 | PATH_ITS ---
[facility] Accession Number: [id number] . 01 Material submitted: . body - ANASTAMOSIS OF RESECTION SITE . 02 Diagnosis: Anastomosis of Resection Site, Biopsy: Colonic mucosa with mild architectural distortion, consistent with anastomotic site. Negative for active inflammation, granulomas, dysplasia and malignancy. [facility]/09/02/2018 . 02 Electronically signed: . Trena Shaw MD, Pathologist NPI- [id number] . 01 Gross description: . ANASTAMOSIS OF RESECTION SITE: Received in formalin are 4 fragment(s) of rhodes, soft tissue measuring 0.1 x 0.1 x 0.1 cm to 0.3 x 0.2 x 0.2 cm which is entirely submitted and submitted entirely in 1 cassette(s) /DMC /DMC . 02 Pathologist provided ICD-10: R10.9 . 02 CPT . 291854 Performed at: 01 [facility] [address] [facility], [place], [place] [id number] MD Colt Hodge MD Phone: [phone] Performed at: 02 [facility] [place] [address] [place], [place] [id number] MD Trena Shaw MD Phone: [phone]
[2018-09-01] MEDS: SODIUM CHLORIDE 0.9% 1,000 ML 100 ML IV (08:23)
[2018-09-01] MEDS: FLEETS ENEMA 1 EACH PR ×2 (08:23→08:50)
--- NOTE | 2018-09-01 08:51 | SUR.PREOP ---
2nd fleets given per dr hurtado after shown output from 1st fleets.
--- NOTE | 2018-09-01 09:05 | SUR.PREOP ---
output clear after 2nd fleets.
--- NOTE | 2018-09-01 09:26 | P.HP_ITS ---
History of Present Illness Date Patient Seen: 09/01/18 Time Patient Seen: 09:24 Chief complaint: [id number] COLONOSCOPY Narrative: The patient is woman post a low anterior resection. She is 6 months out. She had cancer. She is here for and surveillance colonoscopy. 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) Surgical History Hx of cholecystectomy (Acute) Hx of tonsillectomy (Acute) History of third molar tooth extraction (Resolved) Status post laparoscopic cholecystectomy (Resolved) Family History Grandmother Ovarian cancer Grandfather Diabetes mellitus Social History number of children: 4 household members: children and other occupational status: employed Smoking Status: Never smoker alcohol intake: never substance use type: does not use and other Family & Social History Family History Grandmother Ovarian cancer Grandfather Diabetes mellitus Social History: household members other,children Tobacco & Substance use: Smoking Status Never smoker alcohol intake never Substance Use Type marijuana Meds Home Medications Medication Instructions Recorded Confirmed Type ibuprofen 800 mg tablet 800 mg PO BID PRN 02/18/18 09/01/18 History Zyrtec 10 mg PO DAILY PRN 02/23/18 09/01/18 History acetaminophen [Tylenol] 650 mg PO Q4H PRN 02/23/18 09/01/18 History levonorgestrel [Mirena] 1 dose INTRAUTERINE CONT 02/23/18 08/27/18 History albuterol sulfate HFA 90 1 puff INHALATION Q4-6H PRN #6.7 07/07/18 08/27/18 Rx mcg/actuation aerosol inhaler gram cannabidiol (CBD) 100 mg/mL oral 10 mg PO ml 08/27/18 08/27/18 History solution fluticasone propionate 50 2 spray NASAL DAILY 08/27/18 09/01/18 History mcg/actuation nasal spray,suspension metaxalone 800 mg tablet 400 mg PO TID #20 tab 08/27/18 Rx Allergies Allergy/AdvReac Type Severity Reaction Status Date / Time aspirin AdvReac Severe Nausea Verified 09/01/18 08:20 Review of Systems Review of Systems All systems reviewed & are unremarkable except as noted in HPI and below Exam Vital Signs (past 8 hours): - 09/01/18 08:18 Temperature 96.7 F L Pulse Rate 65 Respiratory Rate 20 Blood Pressure 131/83 Pulse Oximetry 96 Oxygen Delivery Method Room Air Narrative Exam Narrative: Pleasant cooperative patient no apparent distress. Lungs are c lear to auscultation. No rales or rhonchi. Heart regular rate and rhythm no murmur gallop. Abdomen is soft nontender without mass. No obvious hernias. Patient is alert and oriented x3. Assessment & Plan Assessment & Plan narrative: The patient for a cancer surveillance colonoscopy. I have discussed the procedure with them. Risks of bleeding, perforation which would necessitate major operation, failure to find remove all lesions, the potential tattoo were all discussed. All questions were answered. They wished to proceed.
--- NOTE | 2018-09-01 09:26 | PM.PREOP ---
Pre-operative Note Interval Note History & Physical reviewed/Exam performed by Physician: Yes Changes to H&P: No ASA Class (for procedural sedation): II
[2018-09-01] MEDS: MIDAZOLAM 5 MG/5 ML VIAL IV (10:01)
[2018-09-01] MEDS: fentaNYL 250 MCG/5 ML INJ IV (10:02)
--- NOTE | 2018-09-01 10:05 | PM.OP.ENDO ---
Operative Date/Time/Diagnoses Date of procedure: 09/01/18 Time of procedure: 10:05 Pre-op diagnosis: History of colo-rectal cancer Post-op diagnosis: same Procedure & Clinicians Study performed: Colonoscopy with cold biopsy Same procedure as scheduled: Yes Indications: Surveillance. Post resection. Surgeon: Rashaun Douglas Procedure Notes SCOAP/Timeout: Performed Procedure in detail: The patient was placed in the left lateral decubitus position and underwent IV sedation directed by the surgeon consisting of fentanyl and Versed. Digital exam was remarkable for visible large tags from old hemorrhoidal disease. No masses. The scope was inserted and advanced through the rectum into the sigmoid, descending, transverse, and ascending colon. I noted the anastomosis going through it. There was a tattooed area just distal.. The cecum was reached identified by the ileocecal valve and the appendiceal opening. The ileocecal valve was successfully cannulated. The terminal ileum was normal in appearance. The scope was gradually brought out. No Polyps were found. I chose to biopsy the area of the anastomosis randomly. I could not see any lesions at the site. The scope ultimately was retroflexed in the rectum. The appearance was normal except for some scarring on old hemorrhoidal disease.. The scope was removed and the patient tolerated the procedure well. Prep was good. Scope withdrawal time: 8 minutes Sedation minutes: 19 Findings: other findings (Patent anastomosis) Specimen(s): other (Random biopsies at the anastomosis) Complications: none Recommendations: Colonscopy in 1 year Follow up: months (Three) Disposition: PACU
--- NOTE | 2018-09-01 10:24 | SUR.PHASEI ---
1022 Drowsy, oriented, VS stable. Report given/transferred to OPD.
[2018-09-01 12:10] LABS: Carcinoembryonic Antigen 0.8 ng/mL (0.1-3.0)
== END 2018-09-01 11:24 | disposition home or self-care (01) ==
PROVIDERS: PCP Family Medicine; Visit Provider Specialist
PROC: 0DJD8ZZ Inspection of Lower Intestinal Tract, Via Natural or Artificial Opening Endoscopic (ICD-10-PCS; CPT 45378; principal; 2018-09-01 09:45)
DX: Z85.038 Personal history of other malignant neoplasm of large intestine (principal); Z90.49 Acquired absence of other specified parts of digestive tract
CPT/HCPCS: 45380; 36415; 82378; 99152; J2250; J3010

== ENCOUNTER → 2018-11-19 12:31 | Outpatient (CLI) | payer OTHER, SELFPAY ==
[2018-04-30 18:03] VITALS: BMI 35.5
--- NOTE | 2018-11-19 12:34 | DI.RAD.S_ITS ---
PROCEDURE: XR ABDOMEN MIN 2V INDICATIONS: Constipation TECHNIQUE: 2 views of the abdomen were acquired. COMPARISON: [facility], CR, XR ABDOMEN MIN 2V, 06/09/2018, 16:58. FINDINGS: Surgical changes and devices: Several surgical clips right upper quadrant consistent with cholecystectomy. Midline position and IUD. Bowel: No pneumoperitoneum. The bowel gas pattern is normal but note is made of what appears to be a pneumonia pattern in each lung base. Soft tissues: No masses; visualized solid organ contours appear normal in size. No suspicious abdominal calcifications. Bones: No suspicious bony abnormalities. IMPRESSION: 1. The lung bases are partially included on this examination and the appearance raises concern for presence of bibasilar pneumonia. Please consider obtaining dedicated frontal and lateral plain films of the chest for further assessment. 2. Right upper quadrant cholecystectomy clips 3. Through the abdomen and pelvis no sign of intestinal obstruction or perforation is found. Dictated by: Garo Boone M.D. on 11/19/2018 at 13:40 Approved by: Garo Boone M.D. on 11/19/2018 at 13:42
[2018-11-19 12:48] LABS: Add Manual Diff / Slide Review NO; Basophils Absolute Auto 0 /uL (0-100); Basophils Percent Auto 0.3 % (0-2); Eosinophils Absolute Auto 100 /uL (0-450); Eosinophils Percent Auto 2.3 % (2-4); Hematocrit 38.2 % (36-46); Hemoglobin 12.8 g/dL (12.0-16.0); Lymphocytes Absolute Auto 1600 /uL (1100-4500); Lymphocytes Percent Auto 26.4 % (25-40); Mean Corpuscular HGB Conc 33.7 % (30-36); Mean Corpuscular Hemoglobin 28.5 PG (26-34); Mean Corpuscular Volume 84.7 fL (80-100); Monocytes Absolute Auto 400 /uL (0-900); Monocytes Percent Auto 6.7 % (3-14); Neutrophils Absolute Auto 3900 /uL (1500-7000); Neutrophils Percent Auto 64.3 % (50-75); Platelet Count 183 X10^3/uL (150-400); Red Blood Cell Count 4.51 X10^6/uL (4.0-5.2); Red Cell Distribution Width 15.2 % (11.6-14.8); White Blood Cell Count 6.1 X10^3/uL (4.5-11.0)
[2018-11-19 13:04] LABS: Hemoglobin A1C% w Est Avg Glu 5.5 % (4.0-6.0)
== END ==
PROVIDERS: PCP Family Medicine; Visit Provider Registered Nurse
DX: K59.00 Constipation, unspecified (principal); E66.9 Obesity, unspecified; R73.9 Hyperglycemia, unspecified; R52 Pain, unspecified; R53.83 Other fatigue; Z90.49 Acquired absence of other specified parts of digestive tract
CPT/HCPCS: 36415; 74019; 83036; 85025

== ENCOUNTER → 2018-11-19 15:40 | Outpatient (CLI) | payer OTHER, SELFPAY ==
[2018-04-30 18:03] VITALS: BMI 35.5
--- NOTE | 2018-11-19 15:42 | DI.RAD.S_ITS ---
PROCEDURE: XR CHEST 2V INDICATIONS: Abnormal chest xray TECHNIQUE: 2 views of the chest were acquired. COMPARISON: None. FINDINGS: Surgical changes and devices: None. Lungs and pleura: Lungs are clear. No pleural effusions or pneumothorax. Mediastinum: Mediastinal contours are normal. Heart size is normal. Bones and chest wall: No suspicious bony abnormalities. Soft tissues appear unremarkable. IMPRESSION: No acute cardiopulmonary findings. Dictated by: Yvonne Dela Cruz M.D. on 11/19/2018 at 17:27 Approved by: Yvonne Dela Cruz M.D. on 11/19/2018 at 17:27
== END ==
PROVIDERS: PCP Family Medicine; Visit Provider Registered Nurse
DX: R93.89 Abnormal findings on diagnostic imaging of other specified body structures (principal); K59.00 Constipation, unspecified; E66.9 Obesity, unspecified; R73.9 Hyperglycemia, unspecified; R52 Pain, unspecified; R53.83 Other fatigue; Z90.49 Acquired absence of other specified parts of digestive tract
CPT/HCPCS: 36415; 71046; 74019; 83036; 85025

== ENCOUNTER → 2018-12-04 08:54 | Outpatient (CLI) | payer OTHER, SELFPAY ==
[2018-04-30 18:03] VITALS: BMI 35.5
--- NOTE | 2018-12-04 08:55 | DI.US.S_ITS ---
PROCEDURE: US SOFT TISSUE HEAD AND NECK INDICATIONS: CYST/MASS AT NAPE OF RT NECK NEAR WHERE IT MEETS SHOULDER TECHNIQUE: Real-time scanning was performed of the neck region of interest, with image documentation. COMPARISON: None. FINDINGS: 1.0 0.7 0.9 cm solid appearing oblong hypoechoic soft tissue mass corresponding to the palpable abnormality within the base of the right neck. Doppler assessment demonstrates no internal flow. IMPRESSION: Solid soft tissue mass corresponding to the palpable abnormality. Differential would include both benign and malignant etiologies. Recommend clinical correlation and if indicated, soft tissue MRI could be performed for further assessment. Dictated by: Natanael SOLIMAN Interpreted: Leonardo Mcleod MD on 12/04/2018 at 10:32 Approved by: Leonardo Mcleod M.D. on 12/04/2018 at 13:33
== END ==
PROVIDERS: PCP Family Medicine; Visit Provider Nurse Practitioner
DX: M54.2 Cervicalgia (principal); R22.1 Localized swelling, mass and lump, neck
CPT/HCPCS: 76536

== ENCOUNTER → 2018-12-25 08:35 | Outpatient (CLI) | payer OTHER, SELFPAY ==
[2018-04-30 18:03] VITALS: BMI 35.5
--- NOTE | 2018-12-25 08:48 | DI.CT.S_ITS ---
PROCEDURE: CT SOFT TISSUE NECK W CON INDICATIONS: lump back of nect TECHNIQUE: After the administration of intravenous contrast, 3.0 mm axial sections acquired from the sella to the aortic arch. Additional oblique axial 3.0 mm sections acquired through the pharynx. 3 mm thick coronal and sagittal reformats were generated. For radiation dose reduction, the following was used: automated exposure control. COMPARISON: [facility], , US SOFT TISSUE HEAD AND NECK, 12/04/2018, 9:12. FINDINGS: Image quality: Excellent. Lymph nodes: No enlarged lymph nodes seen throughout the neck. Vessels: Visualized vasculature appears patent. Neck spaces: The oropharynx, nasopharynx, and pharynx demonstrate no mucosal lesions. The vocal cords, false vocal cords, pyriform sinuses, epiglottis, vallecula, and tongue base all appear normal. Extramucosal spaces appear unremarkable. Glands: The parotid and submandibular glands appear normal. Thyroid gland is unremarkable. Miscellaneous: Visualized brain and orbits appear normal. Lung apices appear clear. Superficial soft tissues appear normal. No abnormality is identified in the lower posterior neck, corresponding to area of palpable concern. It is noted that there is an apparent masslike focus on ultrasound within this region. However, no definitive CT abnormality is identified. Bones: No suspicious bony lesions. Visualized sinuses and mastoids appear unremarkable. IMPRESSION: 1. No definitive CT abnormalities identified within the region of the posterior neck soft tissues corresponding to palpable concern an ultrasound abnormality. While the finding on ultrasound could have resolved or been artifactual, if concern persists, further followup with ultrasound is recommended, which short interval imaging or biopsy. Dictated by: Rocío Solomon M.D. on 12/25/2018 at 11:21 Approved by: Rocío Solomon M.D. on 12/25/2018 at 11:47
== END ==
PROVIDERS: PCP Family Medicine; Visit Provider Nurse Practitioner
DX: R22.1 Localized swelling, mass and lump, neck (principal)
CPT/HCPCS: 70491; Q9967

== ENCOUNTER → 2019-01-29 09:50 | Outpatient (CLI) | payer OTHER, SELFPAY ==
[2018-04-30 18:03] VITALS: BMI 35.5
--- NOTE | 2019-01-29 | PATH_ITS ---
Note [facility] Accession Number: [id number] TESTS RESULT FLAG UNITS REF RANGE LAB Clinician Provided Cytology Information No. of containers..01 ThinPrep Vial No. of containers..14 Previously Prepared Cytology Slide RIGHT POSTERIOR LOWER NECK LUMP DIAGNOSIS: 02 RIGHT POSTERIOR LOWER NECK LUMP INADEQUATE, INSUFFICIENT CELLS FOR STUDY. SCANT CELLULARITY. Pathologist ICD10: 02 R22.1 01 LOW SUSPICION,DIFFERNTIAL AZ LIPOMA, SPOKE W/ DR. BAY + DECIDED MORE PASSES WERE UNNECESSARY. (GROSSLY, SPECIMEN LOOKED LIKE LIPIDS) PT HAS H/O COLON CA. 02 Anna Mcgarry MD, Pathologist NPI- [id number] Alvarado Streeter, Instructor Dancing ([employer]) 01 30 CC, COLORLESS, CLEAR RECEIVED: 7 ALCOHOL FIXED AND 7 QUICK STAINED SLIDES. /[facility] 02/01/2019 1001 [facility] FLAG LEGEND: L-Low Normal,H-High Normal,LL-Alert Low,HH-Alert High <-Panic Low,>-Panic High,A-Abnormal,AA-Critical Abnormal Performed at: 01 =Z [facility] [address], [place] [address] Colt Hodge MD, 02 [facility] [address] [place] [id number] Trena Shaw MD, Performed at: 01 [facility] [address], [place], [place] [id number] MD Colt Hodge MD Phone: [phone]
--- NOTE | 2019-01-29 09:52 | DI.US.S_ITS ---
PROCEDURE: US FINE NEEDLE ASPIRATION INDICATIONS: RIGHT LOWER POSTERIOR NECK LUMP TECHNIQUE: The indications, alternatives, benefits, risks, and complications of the procedure were explained to the patient. Written informed consent was obtained and placed in the chart. The area of interest was examined sonographically and a site was chosen for ultrasound guided percutaneous sampling. The skin was prepared and draped in the usual fashion, and anesthetized with 1% lidocaine infiltrated from the skin down to the lesion. Multiple passes were then performed, with contents emptied into an appropriate pathology specimen container. A bandage was applied to the area of access at completion of the study. COMPARISON: None. FINDINGS: Location(s) of lesion(s) sampled: Right posterior neck subcutaneous soft tissues Picacho: 25 and 22 gauge hypodermic needles. Number of passes: 7 Medications: 1% lidocaine for local anaesthesia. Complications: None. IMPRESSION: Technically successful ultrasound-guided posterior right neck fine needle aspiration. Of note, per cytopathology, slides were not successfully submitted, however this could be due to intrinsic fat lesion such as lipoma (fat normally rapidly dissolves during slide preparation process). This would be compatible with lipoma. Consider continued clinical surveillance and management. Dictated by: Leonardo Mcleod M.D. on 01/29/2019 at 15:59 Approved by: Leonardo Mcleod M.D. on 01/29/2019 at 16:02
== END ==
PROVIDERS: Family Provider Family Medicine; PCP Family Medicine; Visit Provider Nurse Practitioner
DX: R22.1 Localized swelling, mass and lump, neck (principal); Z85.038 Personal history of other malignant neoplasm of large intestine
CPT/HCPCS: 10005

== ENCOUNTER → 2019-04-30 09:34 | Outpatient (CLI) | payer OTHER, SELFPAY ==
[2018-04-30 18:03] VITALS: BMI 35.5
[2019-04-30 10:28] LABS: Add Manual Diff / Slide Review NO; Basophils Absolute Auto 0 /uL (0-100); Basophils Percent Auto 0.3 % (0-2); Eosinophils Absolute Auto 100 /uL (0-450); Eosinophils Percent Auto 1.7 % (2-4); Hematocrit 38.6 % (36-46); Hemoglobin 13.3 g/dL (12.0-16.0); Lymphocytes Absolute Auto 1600 /uL (1100-4500); Lymphocytes Percent Auto 29.1 % (25-40); Mean Corpuscular HGB Conc 34.4 % (30-36); Mean Corpuscular Hemoglobin 29.9 PG (26-34); Mean Corpuscular Volume 86.9 fL (80-100); Monocytes Absolute Auto 400 /uL (0-900); Monocytes Percent Auto 6.5 % (3-14); Neutrophils Absolute Auto 3500 /uL (1500-7000); Neutrophils Percent Auto 62.4 % (50-75); Platelet Count 173 X10^3/uL (150-400); Red Blood Cell Count 4.45 X10^6/uL (4.0-5.2); Red Cell Distribution Width 14.7 % (11.6-14.8); White Blood Cell Count 5.7 X10^3/uL (4.5-11.0)
[2019-04-30 10:52] LABS: Alanine Aminotransferase 43 IU/L (<35); Albumin 4.5 g/dL (3.5-5.0); Albumin Globulin Ratio 1.5 (1.0-2.8); Alkaline Phosphatase 64 U/L (38-126); Aspartate Aminotransferase 28 IU/L (14-36); Bilirubin Total 0.6 mg/dL (0.2-1.3); Blood Urea Nitrogen 15 mg/dL (7-17); Calcium 9.3 mg/dL (8.4-10.2); Carbon Dioxide 27 mmol/L (22-32); Chloride 105 mmol/L (98-107); Estimated Glomerular Filt Rate > 60.0 mL/min (>60); Glucose 112 mg/dL (70-100); HEMOLYSIS < 15 (0-50); Potassium 3.8 mmol/L (3.4-5.1); Sodium 142 mmol/L (137-145); Total Protein 7.5 g/dL (6.3-8.2)
[2019-04-30 11:27] LABS: TSH w/ Reflex to FT4 1.64 uIU/mL (0.47-4.68)
== END ==
PROVIDERS: Family Provider Family Medicine; PCP Family Medicine; Visit Provider Family Medicine
DX: E66.9 Obesity, unspecified (principal); R53.83 Other fatigue
CPT/HCPCS: 36415; 80053; 84443; 85025

== ENCOUNTER → 2019-09-15 08:22 | Outpatient (CLI) | payer OTHER, SELFPAY ==
[2018-04-30 18:03] VITALS: BMI 35.5
[2019-09-16 02:17] LABS: COVID19 Sendout Not Detected (Not Detect)
== END ==
PROVIDERS: Family Provider Family Medicine; Visit Provider Registered Nurse
DX: Z01.812 Encounter for preprocedural laboratory examination (principal)
CPT/HCPCS: 87635

== ENCOUNTER 2019-09-17 06:45 | Day surgery (SDC) | payer OTHER, SELFPAY ==
[2018-04-30 18:03] VITALS: BMI 35.5
[2019-09-09 08:24] VITALS: BMI 37.5
[2019-09-17] VITALS (9 sets, daily range): BP systolic 96–137; BP diastolic 56–90; PULSE 62–83; RESP 12–18; TEMP 36.6; O2SAT 87–99; BMI 37.1
--- NOTE | 2019-09-17 | PATH_ITS ---
[facility] Accession Number: [id number] . 01 Material submitted: . PART A: cervix - CERVICAL CONE BIOPSY OPEN AT 12 PART B: endocervix - ENDOCERVICAL CURETTINGS PART C: endometrium - ENDOMETRIAL CURETTINGS . 01 Clinical history: . CONIZATION OF CERVIX WITH REMOVAL OF IUD . 02 Diagnosis: A. Cervical Cone Biopsy Open at 12 o'clock: Circumferential involvement by high-grade squamous intraepithelial lesion/ANGEL 2-3 with regions of gland neck extension. The apparent endocervical margins are negative for dysplasia. The apparent ectocervical margins are negative for dysplasia. No invasive tumor identified. . B. Endocervical Curettings: No well-preserved endocervical tissue identified; the specimen consists of blood. Please see comment. . C. Endometrial Curettings: Inflamed granululation tissue and portions of endometrial tissue, predominantly stromal, with pseudodecidualized changes; negative for glandular hyperplasia, cytologic atypia, or malignancy. The specimen consists predominantly of blood. Additional gross examination for IUD pending; results will be reported as an addendum. [facility] 09/20/2019 1551 Local . 02 Comment: B. Due to the scant/absent endocervical tissue in this biopsy, it may not be entirely accounts payable representative of this patient's endocervix. Additional sampling could be considered, if clinically appropriate. . The biopsy results correlate with Pap smear [id number]. . 02 Electronically signed: . Anna Mcgarry MD, Pathologist NPI- [id number] . 01 Gross description: . Specimen A is received in formalin, labeled with patient identification and cervical cone biopsy, open at 12. It consists of a cervical cone which is previously opened at 12 o'clock (per surgeon). The specimen measures 1.7 x 1.3 cm and is excised to a depth of 2.5 cm. The mucosa is pink to yellow-rhodes and focally rough. The external os is slit-shaped and 0.3 cm in diameter. The mucosal edge is inked orange and the deep surface is inked black. Sectioning reveals a simple cyst at the 12 to 3 o'clock quadrant measuring 0.2 cm in greatest dimension. The cut surfaces are otherwise homogeneously yellow-rhodes and smooth. The entire specimen is submitted in six cassettes. . Summary of sections: A1: 12 o'clock to 3 o'clock,three pieces. A2-A3: 3 o'clock to 6 o'clock, two pieces in A2 and one piece in A3. A4-A5: 6 o'clock to 9 o'clock, two pieces in A4, one piece in A5. A6: 9 o'clock to 12 o'clock, four pieces. . Specimen B is received in formalin, labeled with patient identification and [facility]. It consists of multiple brown to dark red pieces, admixed with blood clot, measuring 2.5 x 1.6 x 0.2 cm in aggregate. The entire specimen is filtered, wrapped, and submitted in one cassette. . Summary of sections: B1: Multiple pieces. . Specimen C is received in formalin, labeled with patient identification and EM. It consists of multiple dark brown pieces, admixed with blood clot, measuring 2.2 x 2.2 x 0.4 cm in aggregate. The entire specimen is filtered, wrapped, and submitted in one cassette. . Summary of sections: C1: Multiple pieces. ([id number]) /[facility] 09/20/2019 [facility] Local . 02 Pathologist provided ICD-10: D06.9 . 02 CPT . 327313, 443131, [id number] Performed at: [address] [facility] [address] [facility], [place], [place] [id number] MD Colt Hodge MD Phone: [phone] Performed at: 02 [facility] [address] [place], [place] [id number] MD Trena Shaw MD Phone: [phone]
[2019-09-17] MEDS: LACTATED RINGERS 1,000 ML 42 ML IV (07:24)
--- NOTE | 2019-09-17 07:32 | PM.PREOP ---
Pre-operative Note COVID-19 COVID-19 status: Negative Interval Note History & Physical reviewed/Exam performed by Physician: Yes Changes to H&P: No ASA Class (for procedural sedation): II
--- NOTE | 2019-09-17 07:32 | SUR.OPER ---
Lithotomy on padded OR bed, head on pillow, arms secured on padded arm boards at <90 degrees abduction. Legs secured in padded yellow fins stirrups.
[2019-09-17] MEDS: CEFOTETAN 2 GM/50 ML PIGGYBACK IV (08:27)
[2019-09-17] MEDS: BUPIVACAINE 0.5% W/ EPI (PF) 10 ML VIAL INJ (08:43)
--- NOTE | 2019-09-17 09:38 | PM.GYNOP.1 ---
Operative Date/Time/Diagnoses Date of procedure: 09/17/19 Time of procedure: 09:39 Pre-op diagnosis: ANGEL two of the cervix/malpositioned IUD/menometrorrhagia Post-op diagnosis: same (Same) Procedure & Clinicians Procedure: Procedures Operation Date: 09/17/19 07:45 Actual Procedures Side Surgeon p Conization Of Cervix, D&C, remove IUD Esteban Gibbons MD Indications: ANGEL two of cervix/menometrorrhagia/malpositioned IUD Surgeon: Esteban Gibbons Anesthesia Type: General Operative Notes Findings: IUD removed without difficulty/no visible ANGEL Closure Type: primary Specimen(s): endometrial curettings and other (Endocervical curettage/cold cone of cervix) Estimated blood loss (mL): 75 Blood products transfused: none Procedure in detail: The patient is placed supine upon the operating table and anesthetized. She was placed in the dorsal lithotomy position examined under anesthesia. Patient had a normal anteverted cervix. Patient was draped and prepared in the usual fashion. Posterior weighted retractor was set in place. Cervix did not come down well and was angulated a bit posteriorly. IUD string was present and the IUD was removed without difficulty. Angle sutures of 1. Chromic were then placed. The cervix was injected with 0.5% Marcaine in 1 to [id number] epinephrine approximately 7 cc. With a small sound in the endo cervical and endometrial canal cervical conization using the sharp knife was performed and the cone specimen removed and opened at 12:00 p.m.. This was a rather laborious past because the posterior angulation of the cervix. This having been done endocervical curettage was performed. Endocervix was dilated to Hegar 6. And a curettage performed of the endometrium. The cervix was such that is termed or sutures could not be easily placed. A whipstitch interlocking baseball stitch was then used circumferentially placed also with some difficulty. And tied anteriorly. At the end of the procedure there was initially no bleeding. However intake Ernie her down from the stirrups there appeared to be more bright red bleeding than normal. Speculum was set in place as a small area on the left portion of the cervix which was cauterized. A packing was then placed to be used just in the postoperative area. Complications: none Post-operative Condition: stable Disposition: PACU Plan for aftercare: Discharged home
--- NOTE | 2019-09-17 09:45 | P.DS_ITS ---
History of Present Illness History of Present Illness Date Patient Seen: 09/17/19 Date of Onset of Symptoms: 09/17/19 Chief complaint: ANGEL two of cervix/malpositioned IUD/menometrorrhag Narrative: The patient is a 44-year-old with an IUD in situ and menometrorrhagia . Ultrasound showed male placement of the IUD. There was fluid in the uterus as well. Patient had a Pap smear ASCUS cannot rule out high-grade. Biopsies the endocervix shows ANGEL two. Patient was taken to surgery where she underwent cold conization of the cervix, removal of the IUD, endocervical curettage, and endometrial curettage. She did well Discharge Providers Provider Discharge Date: 09/17/19 Primary care physician: Fernanda Esquivel DO Discharge provider: Esteban Gibbons MD Summary Hospital Course Discharge Diagnosis: ANGEL two the endocervix/malpositioned IUD Hospital Course: Patient underwent cold conization of the cervix and D&C without incident Status at Discharge Cognitive/behavioral status at discharge: oriented Functional status at discharge: independent ambulation Overall status at discharge: patient is progressing back to baseline Time Spent with Patient Time spent: Less than 30 minutes Exam Vital Signs (past 8 hours): - 09/17/19 07:18 Temperature 97.8 F Pulse Rate 78 Respiratory Rate 16 Blood Pressure 137/90 Pulse Oximetry 98 Oxygen Delivery Method Room Air Narrative Exam Narrative: Minimal bleeding at the end of the procedure Discharge Plan Discharge Plan Patient Disposition: Home Discharge Med Rec/Prescriptions Prescriptions: New oxycodone 10 mg tablet 10 mg PO Q8H PRN (Reason: pain) Qty: 10 RF: 0 Continued metaxalone 800 mg tablet 400 mg PO TID PRN (Reason: Muscle spasms, muscular pain) Qty: 30 RF: 0 fluticasone propionate 50 mcg/actuation spray,suspension 2 spray NASAL DAILY RF: 0 cannabidiol 100 mg/mL solution 10 mg PO PRN (Reason: pain) RF: 0 albuterol sulfate [Ventolin HFA] 90 mcg/actuation HFA aerosol inhaler 1 puff INHALATION Q4-6H PRN (Reason: Shortness of breath/Cough) Qty: 6.7 RF: 1 acetaminophen [Tylenol] 325 mg Capsule 650 mg PO Q4H PRN (Reason: Headache) RF: 0 Zyrtec 10 mg Capsule 10 mg PO DAILY PRN (Reason: Cough, seasonal allergies) RF: 0 Mirena 20 mcg/24 hours (5 yrs) 52 mg intrauterine device 1 device Intrauterine CONT RF: 0 ibuprofen 400 mg Tablet 400 mg PO PRN PRN (Reason: Pain (Scale Score 1-3)) RF: 0 Follow up/Referrals: Esteban Gibbons MD [Physician] - 2 Weeks Discharge Orders: Discharge (Now); Ordered 09/17/19 Ordered By: Esteban Gibbons Provider Discharge Instructions Diet: Diet as Tolerated Activity: Rest for 72 hours Skin/Wound/Dressing Care Report to your healthcare provider any signs of infection, such as:: chills, fever, night sweats and increased pain Dressing: None Other wound treatment: The perineum clean and dry Visit Report/Discharge Packet Instructions: DI for Cervical Conization Stand Alone Forms: Surgery Discharge Discharge Data Primary Care Provider: Fernanda Esquivel Attending Provider: Esteban Gibbons
--- NOTE | 2019-09-17 10:55 | SUR.PHASEII ---
Assisted to BR steady when up. Dunia pad soaked,new one with panties placed on pt.
[2019-09-17] MEDS: OXYCODONE/ACETAMINOPHEN 5/325 TABLET 1 TAB PO (11:04)
--- NOTE | 2019-09-17 11:10 | SUR.PHASEII ---
Pt back to bed. Dr Gibbons in to see pt, packing d/c'ed by him. Dunia pad in place. Instructed pt not to over do it when at home over the next few days. Pt c/o pain in abdomen, it is cramping pain. Medicated with percocet after juice and crackers tolerated.
--- NOTE | 2019-09-17 11:54 | SUR.PHASEII ---
Pt ready to go, IV d/valorie, pt dressed, awaiting berry picker from her diver.
--- NOTE | 2019-09-17 12:32 | SUR.PHASEII ---
Pt left when ready and left in stable condition.
--- NOTE | 2019-09-17 12:32 | SUR.PHASEII ---
Clean mayra pad given, mayra pad changed, small amount bloody drainage on pad.
== END 2019-09-17 12:00 | disposition home or self-care (01) ==
PROVIDERS: Family Provider Family Medicine; PCP Family Medicine
PROC: 0UBC7ZZ Excision of Cervix, Via Natural or Artificial Opening (ICD-10-PCS; CPT 57520; principal; 2019-09-17 07:45)
DX: N87.1 Moderate cervical dysplasia (principal); Z30.432 Encounter for removal of intrauterine contraceptive device; N92.1 Excessive and frequent menstruation with irregular cycle
CPT/HCPCS: 58301; 57520; J1100; J2250; J2405; J2704; J3010

== ENCOUNTER → 2019-11-22 08:49 | Outpatient (CLI) | payer OTHER, SELFPAY ==
[2018-04-30 18:03] VITALS: BMI 35.5
[2019-11-23 20:10] LABS: COVID19 Sendout Not Detected (Not Detect)
== END ==
PROVIDERS: Family Provider Family Medicine; PCP Family Medicine; Visit Provider Physician Assistant
DX: Z11.59 Encounter for screening for other viral diseases (principal)
CPT/HCPCS: 87635

== ENCOUNTER 2019-11-25 06:22 | Day surgery (SDC) | payer OTHER, SELFPAY ==
[2018-04-30 18:03] VITALS: BMI 35.5
[2019-11-25] VITALS (8 sets, daily range): BP systolic 108–128; BP diastolic 64–80; PULSE 60–70; RESP 10–17; TEMP 36.1–36.8; O2SAT 93–98; BMI 35.5
--- NOTE | 2019-11-25 07:40 | PM.PREOP ---
Pre-operative Note COVID-19 COVID-19 status: Negative Result date/Date tested (Pos, Neg/Pending): 11/22/19 Interval Note History & Physical reviewed/Exam performed by Physician: Yes Changes to H&P: No ASA Class (for procedural sedation): II
[2019-11-25] MEDS: fentaNYL 250 MCG/5 ML INJ IV ×3 (07:52→07:57)
[2019-11-25] MEDS: MIDAZOLAM 5 MG/5 ML VIAL IV ×3 (07:52→07:57)
--- NOTE | 2019-11-25 08:30 | PM.OP.ENDO ---
Operative Date/Time/Diagnoses Date of procedure: 11/25/19 Time of procedure: 08:30 Pre-op diagnosis: History of colon cancer post resection. Last colonoscopy was a year ago Post-op diagnosis: same (Normal exam) Procedure & Clinicians Study performed: Colonoscopy Same procedure as scheduled: Yes Indications: Surveillance for colon cancer Surgeon: Rashaun Douglas Procedure Notes SCOAP/Timeout: Performed Procedure in detail: The patient was placed in the left lateral decubitus position and underwent IV sedation directed by the surgeon consisting of fentanyl and Versed. Digital exam was unremarkable. The scope was inserted and advanced through the rectum into the descending, transverse, and ascending colon. No lesions were seen. At 15 cm I did note the anastomosis which was widely patent. It appeared to be an end-to-end anastomosis.. The cecum was reached identified by the ileocecal valve and the appendiceal opening. The ileocecal valve was briefly cannulated. The terminal ileum was normal in appearance. The scope was gradually brought out. No Polyps were found. The scope ultimately was retroflexed in the rectum. The appearance was normal. The scope was removed and the patient tolerated the procedure well. The prep was good. Scope withdrawal time: 6.25 minutes Sedation minutes: 20 Findings: other findings (Normal exam. Surgically absent sigmoid colon. Patent anastomosis.) Specimen(s): none sent Complications: none Post-procedure Recommendations: Colonscopy in 3 years Follow up: as needed Disposition: PACU
--- NOTE | 2019-11-25 08:52 | SUR.PHASEI ---
blood work drawn and taken to lab
[2019-11-25 09:53] LABS: Carcinoembryonic Antigen 15.9 ng/mL (0.1-3.0)
== END 2019-11-25 09:15 | disposition home or self-care (01) ==
PROVIDERS: Family Provider Family Medicine; PCP Family Medicine; Referring Provider Family Medicine; Visit Provider Specialist
PROC: 0DJD8ZZ Inspection of Lower Intestinal Tract, Via Natural or Artificial Opening Endoscopic (ICD-10-PCS; CPT 45378; principal; 2019-11-25 07:45)
DX: Z12.11 Encounter for screening for malignant neoplasm of colon (principal); Z85.038 Personal history of other malignant neoplasm of large intestine; Z90.49 Acquired absence of other specified parts of digestive tract
CPT/HCPCS: 45378; 36415; 82378; 99152; J2250; J3010

== ENCOUNTER → 2019-12-15 09:16 | Outpatient (CLI) | payer OTHER, SELFPAY ==
[2018-04-30 18:03] VITALS: BMI 35.5
--- NOTE | 2019-12-15 11:57 | DI.CT.S_ITS ---
PROCEDURE: CT CHEST ABD PEL W CON INDICATIONS: hx colon cancer with elevated CEA r/o mets TECHNIQUE: After the administration of oral and intravenous contrast, 5 mm thick sections acquired from the lung apices to the symphysis. 5 mm coronal and sagittal reformats were performed, with additional 7 mm coronal MIP reformats through the lungs. For radiation dose reduction, the following was used: automated exposure control, adjustment of mA and/or kV according to patient size. COMPARISON: Outside Facility, RG, MRI PELVIS W/WO CONTRAST, 03/13/2018, 14:49. [facility], US, US SOFT TISSUE HEAD AND NECK, 12/04/2018, 9:12. [facility], CT, CT SOFT TISSUE NECK W CON, 12/25/2018, 8:42. [facility], [place], NM PET CT FUSION SKULL 2 THIGH, 04/15/2018, 16:56. [facility], CT, CT CHEST ABD PEL W CON, 02/27/2018, 8:32. FINDINGS: Image quality: Excellent. CHEST: Lungs and pleura: There is a 2 mm solid nodule in the left upper lobe (series 3 image 138), which was present on 02/27/2018 and demonstrated ground-glass in density. It appears stable in size but increased in density. A 3 mm new ground-glass nodule is noted in the left upper lobe (series 300, image 135). No acute airspace opacities. No pleural effusions or pneumothorax. Central and peripheral airways appear patent and normal in caliber. Mediastinum: Heart size is normal. No pericardial effusion. No mediastinal or hilar adenopathy by size criteria. Thoracic aorta and central pulmonary arteries are normal in size. Esophagus is normal in caliber. No hiatal hernia. Chest wall: No axillary or supraclavicular adenopathy by size criteria. Thyroid gland is unremarkable. ABDOMEN: Solid organs: There is hepatic steatosis. Liver is normal in size and enhancement. Gallbladder is surgically absent . Common bile duct is mildly dilated. There is no intrahepatic biliary dilation. Pancreas enhances normally. Spleen is normal in size and enhancement. No adrenal nodules. Kidneys demonstrate normal size and enhancement, without hydronephrosis. Peritoneum and bowel: Bowel loops demonstrate normal wall thickness and caliber. No free air. There is a trace amount of free fluid in the deep peritoneum reflection within the pelvis. Nodes and vessels: No retroperitoneal or mesenteric adenopathy by size criteria. Aorta and inferior vena cava are normal in size. Miscellaneous: No ventral hernias. PELVIS: There is a large mass in the right pelvic sidewall measuring 4.4 x 7.8 cm, not seen on the prior PET-CT.. This appears to be separate but in contact with the right ovary. A trace amount of free fluid is present in the cul-de-sac. Genitourinary: Bladder wall thickness is normal. Uterus is unremarkable. There is an IUD. Left ovary is normal. Right ovary is noted in close contact with the large right pelvic sidewall mass. Miscellaneous: No inguinal hernias or adenopathy. Bones: There is lucent appearance of sacrum involving S1, S2, S3 and S4 sacral bodies. No vertebral body compression fractures. IMPRESSION: 1. A 4.4 x 7.8 cm mass in the right pelvic sidewall. This appears to be separate from the right ovary although it does contact the ovary. This is suspicious for metastatic disease suggested large joshua mass. If clinically indicated, PET-CT may be helpful. 2. A trace amount of free fluid in the cul-de-sac. 3. Lucent appearance of sacrum. On the prior PET-CT, there is no abnormal FDG uptake. The finding is indeterminate and probably benign. 4. Two small 2-3 mm indeterminate lung nodules in the left upper lobe. One of the nodules was present on 02/27/2018 and appears stable in size but increased in density. The other nodule is new. A three-month follow-up chest CT is suggested in this patient with history of colon cancer. Dictated by: Shadi Herring M.D. on 12/15/2019 at 11:54 Approved by: Shadi Herring M.D. on 12/15/2019 at 12:35
== END ==
PROVIDERS: Family Provider Family Medicine; PCP Family Medicine; Referring Provider Family Medicine; Visit Provider Specialist
DX: C19 Malignant neoplasm of rectosigmoid junction (principal); R97.0 Elevated carcinoembryonic antigen [CEA]; R19.09 Other intra-abdominal and pelvic swelling, mass and lump; R91.8 Other nonspecific abnormal finding of lung field; K76.0 Fatty (change of) liver, not elsewhere classified; K83.8 Other specified diseases of biliary tract; Z90.49 Acquired absence of other specified parts of digestive tract; Z97.5 Presence of (intrauterine) contraceptive device
CPT/HCPCS: 71260; 74177; Q9967

== ENCOUNTER → 2019-12-22 10:50 | Outpatient (CLI) | payer OTHER, SELFPAY ==
[2018-04-30 18:03] VITALS: BMI 35.5
--- NOTE | 2019-12-22 10:53 | DI.US.S_ITS ---
PROCEDURE: US PELVIC COMPLETE INDICATIONS: RIGHT PELVIC MASS ON CT TECHNIQUE: Real-time scanning was performed of the pelvic organs, with image documentation. Additional endovaginal scanning was necessary due to incomplete visualization of the adnexal and endometrial structures by transabdominal scanning. COMPARISON: [facility], CT, CT CHEST ABD PEL W CON, 02/27/2018, 8:32. [facility], CT, CT CHEST ABD PEL W CON, 12/15/2019, 10:23. FINDINGS: Transabdominal scanning: Limited scanning through the kidneys shows no hydronephrosis. No pathologic free abdominal or pelvic fluid. Endovaginal scanning: Uterus: Uterus is normal in size at 8.0 x 4.3 x 5.8 cm. The endometrium measures 3.6 mm in combined thickness. Ovaries: The right ovary measures 2.6 x 1.7 x 2.5 cm. Adjacent to the right ovary, in the right adnexa, between the ovary and the uterus, is a solid mass measuring 8.1 x 3.4 x 3.9 cm. The left ovary measures 4.5 x 2.7 x 3.4 cm. There is free fluid in the pelvis which is mildly greater than physiologic. IMPRESSION: 1. A solid ovoid adnexal mass between the right ovary and uterus, measuring 8.1 x 3.4 x 3.9 cm, is suspicious for a drop metastatic lesion. 2. Fluid in the pelvis is slightly greater than physiologic. Comment: Consider follow-up on subsequent CT examinations versus possible CT-guided biopsy. Dictated by: Nolberto Rodney M.D. on 12/22/2019 at 12:08 Approved by: Nolberto Rodney M.D. on 12/22/2019 at 12:15
[2019-12-22 12:41] LABS: Cancer Antigen 125 < 5.5 U/mL (0-35)
[2019-12-25 12:36] LABS: Human Epididymis Prot 4 39.8 pmol/L (0.0-63.6)
== END ==
PROVIDERS: Family Provider Family Medicine; PCP Family Medicine; Referring Provider Specialist; Visit Provider Specialist
DX: C19 Malignant neoplasm of rectosigmoid junction (principal); R97.0 Elevated carcinoembryonic antigen [CEA]; R19.03 Right lower quadrant abdominal swelling, mass and lump
CPT/HCPCS: 36415; 76830; 76856; 86304; 86305

== ENCOUNTER → 2020-01-03 14:14 | Outpatient (CLI) | payer OTHER, SELFPAY ==
[2018-04-30 18:03] VITALS: BMI 35.5
[2020-01-04 07:41] LABS: COVID19 Sendout Not Detected (Not Detect)
== END ==
PROVIDERS: Family Provider Family Medicine; PCP Family Medicine; Visit Provider Physician Assistant
DX: Z11.59 Encounter for screening for other viral diseases (principal)
CPT/HCPCS: 87635

== ENCOUNTER 2020-01-06 11:17 | Inpatient (IN) | payer OTHER, SELFPAY ==
[2018-04-30 18:03] VITALS: BMI 35.5
[2019-12-30 13:36] VITALS: BMI 36.3
[2020-01-06] VITALS (16 sets, daily range): BP systolic 119–148; BP diastolic 72–92; PULSE 76–99; RESP 9–18; TEMP 35.7–36.7; O2SAT 92–99; BMI 35.7
--- NOTE | 2020-01-06 | PATH_ITS ---
Note [facility] Accession Number: [id number] TESTS RESULT FLAG UNITS REF RANGE LAB Clinician Provided Cytology Information No. of containers..01 Other (Miscellaneous) 01 PELVIC WASHINGS DIAGNOSIS: 01 PELVIC WASHINGS NEGATIVE FOR MALIGNANT CELLS. THIS INTERPRETATION INCLUDES EVALUATION OF A CELL BLOCK. Pathologist ICD10: 01 N83.8 Leydi Johnson MD, Pathologist NPI- [id number] Colin Fu, Roll Press Operator ([facility]) 01 35 CC, PINK, CLOUDY RECEIVED: FRESH IN WHITE CAP CONTAINER. /VDU 01/07/2020 0954 Local FLAG LEGEND: L-Low Normal,H-High Normal,LL-Alert Low,HH-Alert High <-Panic Low,>-Panic High,A-Abnormal,AA-Critical Abnormal Performed at: 01 =Z [facility] [address], [place] [address] Colt Hodge MD, Performed at: 01 [facility] [address], [place], [place] [id number] MD Colt Hodge MD Phone: [phone]
[2020-01-06] MEDS: LACTATED RINGERS 1,000 ML 100 ML IV ×2 (12:04→16:02)
--- NOTE | 2020-01-06 12:13 | PM.PREOP ---
Pre-operative Note COVID-19 COVID-19 status: Negative Result date/Date tested (Pos, Neg/Pending): 01/03/20 Interval Note History & Physical reviewed/Exam performed by Physician: Yes Changes to H&P: No H&P completed within 30 days and has changed as indicated here:: 12/29/19
--- NOTE | 2020-01-06 12:38 | P.OP.PRE_ITS ---
Pre-operative Note COVID-19 COVID-19 status: Negative Result date/Date tested (Pos, Neg/Pending): 01/03/20 Interval Note History & Physical reviewed/Exam performed by Physician: Yes Changes to H&P: Yes H&P completed within 30 days and has changed as indicated here:: Patient has no nodes in the neck supraclavicular axillary areas. She has no dominant mass in either breast. Exam is otherwise unchanged. Talked to her about the uncertainty the operation. Talked with her about the potential for this being colon cancer versus breast cancer verses LAND MANAGEMENT FORESTER malignancy verses gastric verses pancreatic versus other. Which is not certain what were going to find. The operation may be as simple as doing biopsies or quite complex. She appeared to understand and wished to proceed.
--- NOTE | 2020-01-06 13:15 | SUR.OPER ---
Lithotomy on padded OR bed. [place] Pad Positioner under torso. Head on pillow, arms padded and tucked at sides. Legs secured in padded yellow fins stirrups.
[2020-01-06] MEDS: CEFAZOLIN 2 GM/100 ML FROZ.PIGGY IV (13:21)
[2020-01-06] MEDS: BUPIVACAINE 0.5% W/ EPI (PF) 30 ML VIAL INJ (14:29)
--- NOTE | 2020-01-06 15:55 | SUR.PHASEI ---
Pt received to PACU at 1545. Airway patent, self maintained. Report received from Dr Biggs and Mallory RN. [id number] - report given to Shimon Nassar RN
[2020-01-06] MEDS: HYDROMORPHONE 2 MG INJ IV ×4 (16:00→16:15)
[2020-01-06] MEDS: OXYCODONE/ACETAMINOPHEN 5/325 TABLET 1 TAB PO (16:09)
[2020-01-06] MEDS: fentaNYL 100 MCG/2 ML INJ IV (16:14)
--- NOTE | 2020-01-06 16:54 | P.OP_ITS ---
Operative Date/Time/Diagnoses Date of procedure: 01/06/20 Time of procedure: 16:41 Pre-op diagnosis: Right pelvic mass with elevated CEA and history of stage I colon cancer. Post-op diagnosis: other (Bilateral pelvic masses involving the intraluminal fallopian tubes. Densely adherent to the colon which is posterior.) Procedure & Clinicians Procedure: Exploratory laparotomy partial omentectomy, collection of pelvic washings and biopsy of small lesion on the external surface of the uterus. Same procedure as scheduled: Yes Indications: Diagnostic and potentially therapeutic Surgeon: Rashaun Douglas Managed Services Sales Consultant: Krystle Wilkins Anesthesia Type: General Operative Notes Findings: Large bilateral pelvic masses right greater than left involving the fallopian tubes. The left tube was densely adherent to the colon posteriorly. The right to was adherent to pelvic structures which could not be readily reviewed. The uterus had a small nodule in its posterior surface but otherwise other than being somewhat fixed was not obviously involved with these tumors. Ovaries were not clearly visualized on either side. There was no palpable or visible evidence of spread outside of the pelvis. A small portion of the omentum was biopsied to determine if there was any involvement there. Washings were taking in the pelvis and the small nodule on the posterior uterus was removed and sent as specimen. Specimen(s): other (Pelvic washing. Biopsy of lesion on external surface of uterus. Small portion of omentum.) Prosthetic devices, grafts, tissues, transplants, or devices: None Applied: catheter (Intraoperative Dial catheter which was removed postprocedure.) Estimated Blood Loss (mL): 50 Blood products transfused: none Procedure in detail: The patient was placed supine on the operating room table and underwent general endotracheal anesthesia. A Dial catheter was inserted and the patient was placed in stirrups. She was prepped and draped in the usual fashion. A zunni manipulator was inserted into the uterus. A small incision was made through an old scar in the umbilicus and carried down under direct vision in the peritoneal cavity. And thus on cannot was inserted. The abdomen was insufflated. An additional port was placed in the right abdomen in order to manipulate the internal structures. The liver appeared smooth and without lesion. The omentum was unremarkable. The stomach was really not seen due to the large amount of omentum in the patient. Those visible loops of bowel and surfaces of the peritoneum that were visible were clear of tumor. Small bowel was manipulated out the pelvis and we could readily see a mass in the right pelvis. It appeared to be a smooth surfaced dilated tubular structure consistent with of fallopian tube. The ovary could not be seen on that side. The uterus was smooth. Colon was attached to a structure in the left pelvis which could not be well visualized. There was nothing obvious to biopsy and we considered our options. We Decided open the patient to further explore the possibility of removing 1 of these pelvic masses. We also desire to obtain tissue if possible for diagnosis. Incision was made from the umbilicus to the pubis and a large Adrian wound protector was inserted. Washings were taken in the pelvis. The liver and omentum and internal structures were examined for any evidence of metastatic disease with direct visualization with palpation. None was seen. There was some minor adhesions of omentum to the falciform ligament the but there were no palpable abnormalities or visible abnormalities in these thin adhesions. The bowel was packed out of the pelvis with lap pads and the pelvic structures examined. There was some nodularity on the posterior portion of the uterus extending down into the deep pelvis pelvis. The right tube extended down into the deep pelvis and was attached to structures but this area could not be well visualized. On the left side of the tube was identified and we began to try to dissected off of the surrounding structures. We could identify round ligament on both sides that appeared to be normal. The left tube was densely attached to the colon posteriorly. We very cautiously attempted to separate them but there was no real separation plane. They were so adherent that I was concerned that any attempt to separate them would potentially lead to difficulty closing the defect and potentially leave the patient in his situation needing an ostomy. This had not been discussed with her preoperatively. Additionally, I suspected that an EN bloc resection involving this wall of the colon would probably be necessary in order to clear this tumor. We did not think it would be appropriate to do an open biopsy of the tube structures themselves as this would potentially convert a tumor is localized to the pelvis to 1 more advanced. Therefore, after some discussion we decided to remove 1 of the small nodules on the uterus that appeared to be on the surface and not buck sing from the uterus. We also decided to remove the piece of the omentum for examination microscopically. These pieces of tissue along with the washings were submitted for pathology. The cut surface of the omentum was tied with 2 0 silk interrupted ties to control any bleeding. The pelvis was irrigated and the omentum returned to the abdomen. The fascia was closed with a double-stranded 1. PDS. The subcu was loosely approximated with interrupted 2 0 Vicryl in the skin was closed with deidra and a couple of 4 0 nylon sutures were used at the umbilicus. The small port in the right abdomen which had been placed at the beginning of the operation was closed with a single staple. Dressings were applied, the Dial was removed, the patient was awakened and taken to the recovery room extubated in good condition. Complications: none Post-operative Condition: stable Disposition: PACU
[2020-01-06] MEDS: OXYCODONE IR 5 MG TABLET 10 MG PO (18:29)
[2020-01-06] MEDS: ACETAMINOPHEN 325 MG TABLET 650 MG PO (18:29)
[2020-01-06] MEDS: ONDANSETRON 4 MG/2 ML INJ IV (18:29)
[2020-01-06] MEDS: GABAPENTIN 300 MG CAPSULE PO (21:19)
[2020-01-06] MEDS: HYDROMORPHONE 1 MG INJ IV (22:24)
[2020-01-07] VITALS (13 sets, daily range): BP systolic 113–136; BP diastolic 72–89; PULSE 16–89; RESP 16–20; TEMP 36–37.1; O2SAT 93–100
[2020-01-07] MEDS: ACETAMINOPHEN 325 MG TABLET 650 MG PO ×5 (00:46→23:49)
[2020-01-07] MEDS: OXYCODONE IR 5 MG TABLET 10 MG PO ×2 (00:46→07:50)
[2020-01-07] MEDS: LACTATED RINGERS 1,000 ML 100 ML IV (00:59)
[2020-01-07 06:12] LABS: Add Manual Diff / Slide Review NO; Basophils Absolute Auto 0 /uL (0-100); Basophils Percent Auto 0.2 % (0-2); Eosinophils Absolute Auto 0 /uL (0-450); Hematocrit 36.9 % (36-46); Hemoglobin 12.3 g/dL (12.0-16.0); Lymphocytes Absolute Auto 700 /uL (1100-4500); Lymphocytes Percent Auto 5.3 % (25-40); Mean Corpuscular HGB Conc 33.4 % (30-36); Mean Corpuscular Volume 83.8 fL (80-100); Monocytes Absolute Auto 500 /uL (0-900); Monocytes Percent Auto 3.9 % (3-14); Neutrophils Absolute Auto 12400 /uL (1500-7000); Neutrophils Percent Auto 90.6 % (50-75); Platelet Count 192 X10^3/uL (150-400); Red Cell Distribution Width 14.9 % (11.6-14.8); White Blood Cell Count 13.7 X10^3/uL (4.5-11.0)
[2020-01-07 06:20] LABS: Alanine Aminotransferase 82 IU/L (<35); Albumin 3.9 g/dL (3.5-5.0); Albumin Globulin Ratio 1.3 (1.0-2.8); Alkaline Phosphatase 83 U/L (38-126); Aspartate Aminotransferase 72 IU/L (14-36); Bilirubin Total 0.6 mg/dL (0.2-1.3); Blood Urea Nitrogen 11 mg/dL (7-17); Calcium 8.8 mg/dL (8.4-10.2); Carbon Dioxide 28 mmol/L (22-32); Chloride 104 mmol/L (98-107); Estimated Glomerular Filt Rate > 60.0 mL/min (>60); Glucose 144 mg/dL (70-100); HEMOLYSIS < 15 (0-50); Potassium 4.1 mmol/L (3.4-5.1); Sodium 138 mmol/L (137-145); Total Protein 6.9 g/dL (6.3-8.2)
[2020-01-07] MEDS: ONDANSETRON 4 MG/2 ML INJ IV ×2 (07:44→11:47)
[2020-01-07] MEDS: ENOXAPARIN 40 MG/0.4 ML SYRINGE SUBCUT (09:08)
[2020-01-07] MEDS: GABAPENTIN 300 MG CAPSULE PO ×2 (09:09→21:35)
[2020-01-07] MEDS: SENNOSIDES 8.6 MG TABLET 17.2 MG PO (09:09)
--- NOTE | 2020-01-07 09:56 | PM.PNPO.1 ---
Subjective Subjective Date Patient Seen: 01/07/20 Time Patient Seen: 09:00 Interval history: Patient is a woman postop day 1. From exploration biopsies. 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 Given the intraoperative findings and her laboratory evaluation this is probably metastatic colon disease even though she was not early stage colon cancer. Awaiting the biopsies as she recovers from her operation. Exam Vital Signs (past 8 hours): - 01/07/20 05:57 01/07/20 06:58 01/07/20 07:35 Temperature 96.8 F L 98.7 F Pulse Rate 80 70 Respiratory Rate 16 20 Blood Pressure 113/72 127/76 Pulse Oximetry 93 93 97 Oxygen Delivery Method Room Air Oxygen Flow Rate 0 Narrative Exam Narrative: Lungs are clear. No rales or rhonchi. Heart regular rate and rhythm no murmur gallop. Dressing has a small amount of drainage but is essentially dry and intact. It was not removed. Her abdomen is mildly distended and protuberant. Objective Labs Result Diagrams: 01/07/20 05:33 01/07/20 05:33 Labs: Laboratory Results - last 24 hr 01/07/20 01/07/20 05:33 05:33 WBC 13.7 H RBC 4.40 Hgb 12.3 Hct 36.9 MCV 83.8 MCH 28.0 MCHC 33.4 RDW 14.9 H Plt Count 192 Neut % (Auto) 90.6 H Lymph % (Auto) 5.3 L [place] % (Auto) 3.9 Eos % (Auto) 0.0 L Baso % (Auto) 0.2 Neut # (Auto) 10109 H Lymph # (Auto) 700 L [place] # (Auto) 500 Eos # (Auto) 0 Baso # (Auto) 0 Sodium 138 Potassium 4.1 Chloride 104 Carbon Dioxide 28 BUN 11 Creatinine 0.55 Estimated GFR > 60.0 BUN/Creatinine Ratio 20.0 Glucose 144 H Calcium 8.8 Total Bilirubin 0.6 AST 72 H ALT 82 H Alkaline Phosphatase 83 Total Protein 6.9 Albumin 3.9 Globulin 3.0 Albumin/Globulin Ratio 1.3 Assessment & Plan Post-op Postoperative Procedures: Procedures Operation Date: 01/06/20 12:45 Actual Procedures Side Surgeon p LAPROSCOPY WITH BIOPSIES Krystle Wilkins MD Postoperative status: doing well Postoperative plan narrative: Patient has already been up and moving around. She is motivated to progress. Will look at her wounds tomorrow. Continue IV fluid. Quality VTE Deep Vein Thrombosis/Pulmonary Embolism Present on Admission: No
[2020-01-07] MEDS: DEXTROSE 5%-LACTATED RINGERS 1,000 ML 125 ML IV ×2 (10:30→18:02)
--- NOTE | 2020-01-07 11:40 | PC.NURSE ---
Addendum entered by Eduardo Soni R.N. 01/07/20 14:38: Patient still advancing w/ clear liquids. IV toradol PRN and Tylenol given PO. Patient bowel tones hypoactive and no BM on this shift. Patient pain level tolerable 4-5/10. Midline dressing has some shadow drainage. Original Note: Patient had a bout of nausea this morning, 4mg zofran given IV. Patient had emesis at 1125, 200 cc clear/bile. Patient has no complaints of nausea at this time. We talked about what she thinks caused it, and she thought she got up too fast. She is taking it slowly w/ PO intake, only had broth and water and coffee.
[2020-01-07] MEDS: KETOROLAC 30 MG/ML VIAL IV (11:47)
--- NOTE | 2020-01-07 13:26 | CM.IDA ---
Addendum entered by JERRICA Diop 01/07/20 13:40: In addition; Patient sees Karol Dunn [facility], counselor through [facility] w/the [facility] physician group. Original Note: Initial DCP Assessment Note Patient is a 44 yo female, resident of [place]. Patient admitted s/p exploratory lap where pelvic mass was found, biopsies taken. H/o Stage I Colon CA PCP: Fernanda Esquivel Payer: [facility] Contacts: Malinda (sister) [phone], Portia Rey (friend) [phone] Reviewed chart. Patient POD#1 s/p ex lap w/ Dr Douglas and Dr Wilkins. Patient seen up w/SOCIAL MEDIA SPECIALIST walking the hallway, steady gait. Patient lives w/children in [facility], plans to DC w/help from a friend. Attempted to meet w/patient for assessment and RN explained she had bouts of nausea and vomiting this morning, was not a good time for visit. Upon review now of prog notes, Dr Douglas suspects this could be metastatic disease, colon CA primary. Biopsy results still pending. HAND TENNIS BALL COVERER team will follow closely for coordination of safe DCP.. and support to patient during this time of uncertainty JERRICA Diop
--- NOTE | 2020-01-07 22:02 | PC.NURSE ---
Pt is A and O x 4, VSS. She is doing well on clear diet, no N or V. She is independent in room, voiding qs. Hypoactive BTs. Pain 3-410. LS clear, HRR.
[2020-01-08] VITALS (11 sets, daily range): BP systolic 127–140; BP diastolic 79–92; PULSE 51–85; RESP 16–18; TEMP 36.3–36.6; O2SAT 95–100
[2020-01-08] MEDS: OXYCODONE IR 5 MG TABLET 10 MG PO (01:16)
[2020-01-08] MEDS: DEXTROSE 5%-LACTATED RINGERS 1,000 ML 125 ML IV ×2 (03:15→11:19)
[2020-01-08] MEDS: ACETAMINOPHEN 325 MG TABLET 650 MG PO ×4 (06:12→23:24)
[2020-01-08] MEDS: ENOXAPARIN 40 MG/0.4 ML SYRINGE SUBCUT (08:51)
[2020-01-08] MEDS: KETOROLAC 30 MG/ML VIAL IV ×2 (08:52→20:09)
[2020-01-08] MEDS: GABAPENTIN 300 MG CAPSULE PO ×2 (08:52→20:10)
[2020-01-08] MEDS: SENNOSIDES 8.6 MG TABLET 17.2 MG PO (08:52)
--- NOTE | 2020-01-08 10:29 | PM.PNPO.1 ---
Subjective Subjective Date Patient Seen: 01/08/20 Time Patient Seen: 10:29 Interval history: Patient is a 44-year-old postop day # 2 status post diagnostic laparoscopy converted to exploratory laparotomy Patient's catheter was removed yesterday morning and she is voiding without difficulty. She is tolerating a clear liquid diet. She did throw up once after her 1st sips of clear liquids. Nothing since then. No flatus. She has been out of bed to a chair. Exam Vital Signs (past 8 hours): - 01/08/20 05:26 01/08/20 05:55 01/08/20 08:52 Temperature 97.6 F 97.8 F Pulse Rate 73 51 L Respiratory Rate 16 18 Blood Pressure 127/79 134/80 Pulse Oximetry 95 95 100 Oxygen Delivery Method Room Air Oxygen Flow Rate 0 Narrative Exam Narrative: Generally: Patient is sitting up in bed, no acute distress Lungs: Clear to auscultation bilaterally Cardiovascular: Regular rate and rhythm Abdomen: Soft, slightly distended. Decreased bowel sounds in all 4 quadrants. Incisions: The midline incision has a small 4 cm x 4 cm area of old blood on the bandage. The Band-Aid on the right lateral incision has a small amount of blood. Extremities: Negative Homans Objective Labs Result Diagrams: 01/07/20 05:33 01/07/20 05:33 Assessment & Plan Post-op Postoperative Procedures: Procedures Operation Date: 01/06/20 12:45 Actual Procedures Side Surgeon p LAPROSCOPY WITH BIOPSIES Krystle Wilkins MD Postoperative day: 2 Postoperative status: doing well Postoperative plan: routine post-op care and ambulate Postoperative plan narrative: Ambulate in the hallways Time Spent With Patient Time with patient: 15-24 minutes Quality VTE Deep Vein Thrombosis/Pulmonary Embolism Present on Admission: No
--- NOTE | 2020-01-08 13:15 | PM.PNPO.1 ---
Subjective Subjective Date Patient Seen: 01/08/20 Time Patient Seen: 13:15 Interval history: The patient is post laparotomy. She is feeling okay. Had some emesis early this morning but she thinks it is because she stood up to quickly when she was having some mild nausea. She says it has not returned. She would like something a little thicker for dinner. Exam Vital Signs (past 8 hours): - 01/08/20 05:26 01/08/20 05:55 01/08/20 08:52 Temperature 97.6 F 97.8 F Pulse Rate 73 51 L Respiratory Rate 16 18 Blood Pressure 127/79 134/80 Pulse Oximetry 95 95 100 01/08/20 10:00 Temperature Pulse Rate Respiratory Rate Blood Pressure Pulse Oximetry 97 Oxygen Delivery Method Room Air Oxygen Flow Rate 0 Narrative Exam Narrative: Vital signs noted. Her lungs are clear to auscultation with excellent effort. Heart regular rate and rhythm without murmur gallop. Abdomen is protuberant soft. Her incisions look fine. No so colitis. No unusual bruising. Objective Labs Result Diagrams: 01/07/20 05:33 01/07/20 05:33 Assessment & Plan Post-op Postoperative Procedures: Procedures Operation Date: 01/06/20 12:45 Actual Procedures Side Surgeon p LAPROSCOPY WITH BIOPSIES Krystle Wilkins MD Postoperative day: 2 Postoperative status: doing well Postoperative plan narrative: Decrease IV fluids. Advance diet to full liquids. May shower. Dulcolax as needed. Appointment with Medical Oncology once discharged. Quality VTE Deep Vein Thrombosis/Pulmonary Embolism Present on Admission: No
--- NOTE | 2020-01-08 13:16 | PC.NURSE ---
Patient pain level 3-4/10. PRN tylenol and toradol given for pain as needed. Bowel tones hypoactive in all quadrants. VSS, lung sounds clear. Dr. Douglas in to see patient and took off midline dressing and said that patient may shower, also advancing diet to full liquids.
--- NOTE | 2020-01-08 17:21 | PC.NURSE ---
1710 up to BR and did pass flatus. scan bleeding to mayra-pad; changed. urine pink/clear.
[2020-01-09] VITALS (10 sets, daily range): BP systolic 133–143; BP diastolic 54–91; PULSE 81–97; RESP 16–19; TEMP 36.6–37.4; O2SAT 95–99
[2020-01-09] MEDS: ACETAMINOPHEN 325 MG TABLET 650 MG PO ×4 (05:18→23:49)
[2020-01-09] MEDS: DEXTROSE 5%-LACTATED RINGERS 1,000 ML 40 ML IV (07:44)
[2020-01-09] MEDS: ENOXAPARIN 40 MG/0.4 ML SYRINGE SUBCUT (08:50)
[2020-01-09] MEDS: SENNOSIDES 8.6 MG TABLET 17.2 MG PO (08:50)
[2020-01-09] MEDS: GABAPENTIN 300 MG CAPSULE PO ×2 (08:50→20:22)
[2020-01-09] MEDS: KETOROLAC 30 MG/ML VIAL IV (08:54)
--- NOTE | 2020-01-09 09:24 | PM.PNPO.1 ---
Subjective Subjective Date Patient Seen: 01/09/20 Time Patient Seen: 08:10 Interval history: Postop day # 2 status post exploratory laparotomy doing well. Patient is ambulating. She has had a liquidy bowel movement this morning. She is passing flatus. She has been advanced to a full liquid diet. Her pain is well controlled. Exam Vital Signs (past 8 hours): - 01/09/20 02:26 01/09/20 05:38 01/09/20 06:53 Temperature 98.4 F Pulse Rate 94 H Respiratory Rate 16 Blood Pressure 137/88 Pulse Oximetry 99 98 98 01/09/20 08:00 Temperature 98.7 F Pulse Rate 92 H Respiratory Rate 17 Blood Pressure 133/74 Pulse Oximetry 97 Oxygen Delivery Method Room Air Oxygen Flow Rate 0 Narrative Exam Narrative: Generally: Patient is sitting up in chair, no acute distress Lungs: Clear to auscultation bilaterally Cardiovascular: Regular rate and rhythm Abdomen: Soft. Good bowel sounds Incisions: Clean dry and intact with deidra. No erythema or drainage Extremities: Negative Homans Objective Labs Result Diagrams: 01/07/20 05:33 01/07/20 05:33 Assessment & Plan Post-op Postoperative Procedures: Procedures Operation Date: 01/06/20 12:45 Actual Procedures Side Surgeon p LAPROSCOPY WITH BIOPSIES Krystle Wilkins MD Postoperative day: 3 Postoperative status: doing well Postoperative plan: routine post-op care and advance diet Time Spent With Patient Time with patient: less than 15 minutes Quality VTE Deep Vein Thrombosis/Pulmonary Embolism Present on Admission: No
--- NOTE | 2020-01-09 10:22 | PM.PN.1 ---
Subjective Subjective Date Patient Seen: 01/09/20 Time Patient Seen: 08:10 Interval history: Ambulating. Pain well controlled. Denies nausea. Reports flatus and liquid stool. Exam Vital Signs (past 8 hours): - 01/09/20 02:26 01/09/20 05:38 01/09/20 06:53 Temperature 98.4 F Pulse Rate 94 H Respiratory Rate 16 Blood Pressure 137/88 Pulse Oximetry 99 98 98 01/09/20 08:00 01/09/20 10:07 Temperature 98.7 F Pulse Rate 92 H Respiratory Rate 17 Blood Pressure 133/74 Pulse Oximetry 97 97 Oxygen Delivery Method Room Air Oxygen Flow Rate 0 Narrative Exam Narrative: Abdomen soft, appropriately TTP incision c/d/i without erythema or drainage appears well, non toxic Alert, oriented x 3 Objective Labs Result Diagrams: 01/07/20 05:33 01/07/20 05:33 Assessment & Plan Assessment and plan (1) Abdominal or pelvic swelling, mass, or lump, right lower quadrant: Status: Acute Assessment & Plan narrative: POD#2 s/p laparotomy. Doing well. Evidence of return of bowel function. Will advance diet as tolerated. Will offer abdominal binder for pain control. Anticipate dispo tomorrow if pain is controlled and tolerates diet. Time Spent With Patient Time with patient: 15-24 minutes Quality VTE Deep Vein Thrombosis/Pulmonary Embolism Present on Admission: No
--- NOTE | 2020-01-09 12:30 | PC.NURSE ---
Addendum entered by Aguilar Saldana R.N. 01/09/20 15:21: Patient sleeping in bed, call light within reach. Original Note: Assuming care of patient for remainder of shift. Patient sitting up in bed, comfortable and denies needs at this time. States she had just gotten up to use the restroom and noted a little pink blood in urine. Abdominal binder in place. Call light within reach.
--- NOTE | 2020-01-09 13:18 | CM.DPC ---
DCP Cont: Per Surgeon, POD#2 s/p laparotomy. Doing well. Evidence of return of bowel function. Will advance diet as tolerated. Will offer abdominal binder for pain control. Anticipate dispo tomorrow if pain is controlled and tolerates diet. Per RN, pt has been independent in room and no concerns noted at this time. Per RN yesterday, pt had been somewhat tearful and worried about her prognosis but noted to have lots of supportive local family and sense of humor. Plan: SW to follow closely tomorrow to see if pt tolerates advancing diet and remains stable and to check in with pt to determine if any further support needed at d/c. JERRICA Shah
--- NOTE | 2020-01-09 16:29 | PC.NURSE ---
Evening notes: Aydee has had 2 diarrhea stools since 1600, denies abdomen pain, does report some discomfort to abdomen just prior to needing to have BM. Sitting up in recliner now so will be closer to bathroom. Fresh pads & underwear given per patient request. BT hyperactive to LUQ and LLQ, hypoactive to RUQ and RLQ. Abdomen soft, surgical incision is ACTIVE DIRECTORY SPECIALIST, deidra present, well approximated with no redness around site. Abdomen binder in place. VS stable. Gait steady when ambulating in room. She remains Ox3 and situation. Pt encouraged to call nursing staff for any reason or concern, she agrees to this plan.
[2020-01-09] MEDS: OXYCODONE IR 5 MG TABLET 10 MG PO (20:24)
--- NOTE | 2020-01-10 00:20 | PC.NURSE ---
2356 Patient is alert and oriented. Breath sounds diminished at bases with RA sat of 97%; encouraged use of I.S. and patient able to get to 1500. HRR. Denies nausea. Reports she has been having diarrhea stools with some fecal urgency. Denies dysuria, frequency or urgency with urination but does report scant blood on pad/in urine; denies clots. Independent with bed mobility and is up independently to bathroom. Is steady on feet and denies weakness or dizziness. Abdominal incisions stapled and THROW OUT CLERK; well approximated and without redness or drainage; wearing an abdominal binder. Abdomen is soft but tender and slightly distended. Complains of burning type incisional pain and rates severity as 3/10; medicated with scheduled Tylenol and declined need for stronger pain medication. Fall risk score is low, but patient instructed to call for assist if having any dizziness or lightheadedness. Refusing SCD's so reminded to ankle wave.
[2020-01-10 04:14] VITALS: BP 117/80; PULSE 73; RESP 16; TEMP 36.2; O2SAT 97
[2020-01-10] MEDS: ACETAMINOPHEN 325 MG TABLET 650 MG PO ×2 (05:57→11:08)
[2020-01-10 08:00] VITALS: BP 116/75; PULSE 60; RESP 16; TEMP 37.3; O2SAT 98
[2020-01-10] MEDS: GABAPENTIN 300 MG CAPSULE PO (08:38)
[2020-01-10] MEDS: ENOXAPARIN 40 MG/0.4 ML SYRINGE SUBCUT (08:38)
[2020-01-10] MEDS: KETOROLAC 30 MG/ML VIAL IV (08:39)
--- NOTE | 2020-01-10 09:39 | PM.DS.1 ---
History of Present Illness History of Present Illness Date Patient Seen: 01/10/20 Time Patient Seen: 09:39 Chief complaint: Laparoscopy/Diagnostic, GEN Narrative: Patient is a 44-year-old postop day # 4 status post diagnostic laparoscopy which was converted to exploratory laparotomy for a pelvic mass. She underwent a biopsy of a nodule on the posterior aspect of the uterus, partial omentectomy, and pelvic washings. Discharge Providers Provider Date of admission: 01/06/20 11:17 Discharge Date: 01/10/20 Primary care physician: Fernanda Esquivel DO Consults: 01/06/20 16:58 Consult to Discharge Planning Routine Comment: Discharge provider: MD Rashaun Aguilar MD Summary Hospital Course Discharge Diagnosis: Pelvic masses Adnexal to bowel adhesions Possible K[place] tumor Possible ovarian/tubal tumor Hospital Course: Patient presented on January 06, 2020 for a scheduled laparoscopy to remove a pelvic mass. Upon inspection laparoscopic Bibiana there were significant adhesions between the adnexa and the bowel. The decision was made to proceed with exploratory laparotomy. Pelvic washings were obtained. There were bilateral masses in the pelvis that were adhered to the bowel. The decision was made to proceed with a partial omentectomy and 2 biopsy a nodule on the back of the uterus. There was no spill of the tumors bilaterally. Patient's postoperative course was fairly unremarkable. She was started on a clear liquid diet on postop day # 1. She was advanced to a full liquid diet on postop day # 2, and a regular diet on postop day # 3. She passed flatus on postop day # 2. She has had liquid stools. She voided once the catheter was removed. She is ambulating independently. No nausea or vomiting. Her pain is well controlled. Status at Discharge Cognitive/behavioral status at discharge: oriented Functional status at discharge: independent ambulation Overall status at discharge: patient is progressing back to baseline Time Spent with Patient Time spent: Less than 30 minutes Exam Vital Signs (past 8 hours): - 01/10/20 04:14 01/10/20 08:00 Temperature 97.2 F L 99.1 F Pulse Rate 73 60 Respiratory Rate 16 16 Blood Pressure 117/80 116/75 Pulse Oximetry 97 98 Oxygen Delivery Method Room Air Oxygen Flow Rate 0 Narrative Exam Narrative: Generally: Patient walking rounded room, no acute distress Lungs: Clear to auscultation bilaterally Cardiovascular: Regular rate and rhythm Abdomen: Soft, good bowel sounds Incision: Clean dry and intact with deidra. No erythema or drainage. Extremities: Negative Homans Objective Labs Result Diagrams: 01/07/20 05:33 01/07/20 05:33 Discharge Assessment & Plan Assessment and Plan Assessment: Postop day # 4 status post diagnostic laparoscopy converted to exploratory laparotomy for bilateral pelvic masses Patient doing very well Plan of Treatment: Discharge to home Follow-up [address] Douglas for staple removal Ibuprofen 600 mg every 6 hours as needed Tylenol 650 mg every 6 hours as needed Rx for Percocet # 20 sent to [facility] in [place] Patient to call with fever, chills, redness or drainage around the incision, or nausea, vomiting, or inability to have a bowel movement Discharge Plan Discharge Plan Patient Disposition: Home Discharge comment: Call with fever, chills, redness or redness or drainage around the incision Stool softners as needed until things back to normal Discharge orders & Medications Prescriptions: New oxycodone-acetaminophen [Percocet] 5-325 mg tablet 1 tab PO Q4-6H PRN (Reason: pain) Qty: 20 RF: 0 Continued fluticasone propionate 50 mcg/actuation spray,suspension 2 spray NASAL DAILY PRN (Reason: Seasonal allergies) RF: 0 cannabidiol 100 mg/mL solution 10 mg PO DAILY PRN (Reason: Pain) RF: 0 albuterol sulfate [Ventolin HFA] 90 mcg/actuation HFA aerosol inhaler 1 puff INHALATION Q4-6H PRN (Reason: Shortness of breath/Cough) Qty: 6.7 RF: 1 Discontinued Mirena 20 mcg/24 hours (5 yrs) 52 mg intrauterine device 1 device Intrauterine CONT RF: 0 Follow up/Referrals: Rashaun Douglas MD [Physician] - 1 Week (Staple removal) Diet/Activity/Treatments Diet: Regular Activity: No heavy lifting Skin/Wound/Dressing Care Report to your healthcare provider any signs of infection, such as:: chills, fever, night sweats, increased pain, unusual drainage and unusual redness Dressing: Keep incision open to air Visit Report/Discharge Packet Instructions: DI for Exploratory Laparotomy, DI for Laparoscopy, DI for Prescription Opioid Use Discharge Data Primary Care Provider: Fernanda Esquivel VTE Deep Vein Thrombosis/Pulmonary Embolism Present on Admission: No
--- NOTE | 2020-01-10 11:13 | PC.NURSE ---
IV dc'd intact. Discharge instructions reviewed with patient, she states understanding and has no further questions or concerns at this time. Patient is scheduled to follow up with Dr. Douglas for staple removal next week. Instructed to call surgeons with any questions or concerns, and to report any fevers, unusual drainage, redness, unmanaged pain or other signs of infection. Seeke emergent care for emergency. Patient to follow up with Dr. Kim as coordinated by Dr. Dougals, and patient is aware to ensure follow up with oncology outpatient. Patient has no further questions at this time. Ambulating independently, tolerating meals, and pain well managed with tylenol and anti inflammatory today. Wearing abdomnial binder for support and comfort. Patient agrees she will continue using her IS and deep breathing. Patient escorted out via wheelchair by REEL WORKER with all her belongings.
--- NOTE | 2020-01-10 11:47 | CM.DPC ---
DCP Discharge Home Per Surgeon, pt medically stable to d/c home with close follow up with [facility] after discharge and referral to Oncology. Per RN, follow up appointment scheduled with [facility] for the pt and surgeon working on Oncology referral. SW met bedside with pt and her supportive friend and provided requested DPOA pwk/brochure and thoroughly discussed options of completed Advanced directives, POLST form with PCP or MD, living will etc. and pt very appreciative. Pt comfortable with plan to d/c home today via friend POV and aware of her follow up appointments. Plan: Patient to d/c home today via friend POV and outpt follow up appointments scheduled. No further SW needs at this time. JERRICA Shah
--- NOTE | 2020-01-12 | PATH_ITS ---
[facility] Accession Number: [id number] . 01 Material submitted: . PART A: uterus - NODULE ON POSTERIOR UTERUS PART B: body - OMENTUM . 01 Clinical history: . R19.00; N83.8 LAPAROSCOPY/DIAGNOSTIC, GEN . 01 Diagnosis: A. Nodule on Posterior Uterus, Biopsy: Fibroadipose tissue with mild acute and chronic inflammation. Negative for endometriosis, neoplasia, and malignancy. . B. Omentum, Biopsy: Portion of omental adipose tissue with mild chronic inflammation. Negative for endometriosis, neoplasia, and malignancy. [facility] 01/10/2020 1532 Local . 01 Electronically signed: . Leydi Johnson MD, Pathologist NPI- [id number] . 01 Gross description: . A. Specimen A is received in formalin, labeled nodule on posterior uterus and consists of a rhodes-pink to yellow fragment of soft tissue, which is entirely submitted in cassette A1. B. Specimen B is received in formalin, labeled omentum and consists of a 12.0 x 8.0 x 1.8 cm rhodes-yellow portion of omentum, which is sectioned to reveal rhodes-yellow lobulated cut surfaces. Torch Cutter sections are submitted in cassettes A1-A2. ([id number]) /[facility] 01/07/2020 1620 Local . 01 Pathologist provided ICD-10: R19.00, N83.8 . 01 CPT . 271310, 768394 Specimen Comment: A duplicate report has been generated due to demographic updates. Performed at: [address] [facility], [place], [place] [id number] MD Colt Hodge MD Phone: [phone]
== END 2020-01-10 11:18 | disposition home or self-care (01) | DRG 358 ==
PROVIDERS: Admitting Provider Specialist; Family Provider Family Medicine; PCP Family Medicine; Referring Provider Obstetrics & Gynecology; Visit Provider Specialist
PROC: 0UT9FZZ Resection of Uterus, Via Natural or Artificial Opening With Percutaneous Endoscopic Assistance (ICD-10-PCS; principal; 2020-01-06 12:45)
DX: R19.03 Right lower quadrant abdominal swelling, mass and lump (principal); Z85.038 Personal history of other malignant neoplasm of large intestine; J45.909 Unspecified asthma, uncomplicated; Z30.432 Encounter for removal of intrauterine contraceptive device; Z11.59 Encounter for screening for other viral diseases
CPT/HCPCS: 36415; 36592; 49000; 58301; 80053; 85025; 87635; 99406; A9270; J0690; J1100; J1170; J1650; J1885; J2250; J2405; J2704; J3010; J7121

== ENCOUNTER → 2020-02-18 10:47 | Outpatient (CLI) | payer OTHER, SELFPAY ==
[2020-01-06 11:22] VITALS: BMI 35.7
[2020-02-18 11:54] LABS: COVID19 -Nasal RAPID Negative (Negative)
[2020-02-29 13:54] LABS: Add Manual Diff / Slide Review NO; Basophils Absolute Auto 0 /uL (0-100); Basophils Percent Auto 0.4 % (0-2); Eosinophils Absolute Auto 100 /uL (0-450); Eosinophils Percent Auto 2.5 % (2-4); Hematocrit 36.2 % (36-46); Hemoglobin 12.3 g/dL (12.0-16.0); Lymphocytes Absolute Auto 1600 /uL (1100-4500); Lymphocytes Percent Auto 28.7 % (25-40); Mean Corpuscular HGB Conc 33.9 % (30-36); Mean Corpuscular Hemoglobin 28.7 PG (26-34); Mean Corpuscular Volume 84.5 fL (80-100); Monocytes Absolute Auto 300 /uL (0-900); Monocytes Percent Auto 4.8 % (3-14); Neutrophils Absolute Auto 3600 /uL (1500-7000); Neutrophils Percent Auto 63.6 % (50-75); Platelet Count 172 X10^3/uL (150-400); Red Blood Cell Count 4.28 X10^6/uL (4.0-5.2); Red Cell Distribution Width 15.2 % (11.6-14.8); White Blood Cell Count 5.6 X10^3/uL (4.5-11.0)
[2020-02-29 13:58] LABS: INR 1.1 (0.9-1.3); Prothrombin Time 12.6 SECONDS (10.1-12.7)
[2020-02-29 14:02] LABS: Alanine Aminotransferase 55 IU/L (<35); Albumin 4.1 g/dL (3.5-5.0); Albumin Globulin Ratio 1.4 (1.0-2.8); Alkaline Phosphatase 93 U/L (38-126); Aspartate Aminotransferase 31 IU/L (14-36); BUN Creatinine Ratio 33.3 (6-22); Bilirubin Total 0.3 mg/dL (0.2-1.3); Blood Urea Nitrogen 16 mg/dL (7-17); Calcium 8.7 mg/dL (8.4-10.2); Carbon Dioxide 30 mmol/L (22-32); Chloride 107 mmol/L (98-107); Estimated Glomerular Filt Rate > 60.0 mL/min (>60); Globulin 2.9 g/dL (1.7-4.1); Glucose 121 mg/dL (70-100); HEMOLYSIS < 15 (0-50); Potassium 3.9 mmol/L (3.4-5.1); Sodium 141 mmol/L (137-145)
== END ==
PROVIDERS: Internal Medicine; Family Provider Family Medicine; PCP Family Medicine; Visit Provider Specialist
DX: Z01.812 Encounter for preprocedural laboratory examination (principal); Z11.59 Encounter for screening for other viral diseases
CPT/HCPCS: 80053; 85025; 85610; 87635; C9803

== ENCOUNTER 2020-02-21 09:42 | Day surgery (SDC) | payer OTHER, SELFPAY ==
[2020-01-06 11:22] VITALS: BMI 35.7
[2020-02-18 10:42] VITALS: BMI 37.8
[2020-02-21] VITALS (7 sets, daily range): BP systolic 136–157; BP diastolic 86–102; PULSE 74–113; RESP 13–18; TEMP 36.1–36.4; O2SAT 96–99; BMI 35.5
--- NOTE | 2020-02-21 | DI.RAD.S_ITS ---
PROCEDURE: XR CHEST 1V INDICATIONS: PORT A CATH PLACEMENT TECHNIQUE: One view of the chest was acquired. COMPARISON: [facility], CR, XR CHEST 2V, 11/19/2018, 15:52. FINDINGS: Surgical changes and devices: Port-A-Cath from left-sided approach crosses the midline into the area of the azygos arch of the superior vena cava or immediately below.. Lungs and pleura: Lungs are clear. No pleural effusions or pneumothorax. Mediastinum: Mediastinal contours appear normal. Heart size is normal. Bones and chest wall: No suspicious bony lesions. Overlying soft tissues appear unremarkable. IMPRESSION: Port-A-Cath in expected position, superimposed on the area of the superior vena cava at or just below the azygos arch region. Dictated by: Garo Boone M.D. on 02/21/2020 at 13:06 Approved by: Garo Boone M.D. on 02/21/2020 at 13:07
[2020-02-21] MEDS: LACTATED RINGERS 1,000 ML 100 ML IV (10:11)
--- NOTE | 2020-02-21 10:38 | PM.HP.1 ---
History of Present Illness History of Present Illness Date Patient Seen: 02/21/20 Time Patient Seen: 10:29 Chief complaint: PORT PLACEMENT Narrative: The patient is a woman here for placement of a Port-A-Cath. She has colorectal cancer metastatic to her fallopian tubes. Patient History Medical History Abnormal Pap smear of cervix (10/27/14) Anxiety and depression Arthritis Asthma Bronchitis Easy bruisability H/O colon cancer, stage I History of eustachian tube dysfunction HPV (human papilloma virus) infection (10/27/14) Hypoglycemia Lipoma of neck (2019) Migraines Numbness Vaginal delivery Surgical History History of conization of cervix (08/2019) History of third molar tooth extraction Hx of cholecystectomy (~08/1998) Hx of laparoscopy (01/06/20) Hx of tonsillectomy Status post colon resection (03/2018) Status post laparoscopic cholecystectomy Status post LEEP (loop electrosurgical excision procedure) of cervix Family & Social History Family History Grandmother Ovarian cancer Heart disease Grandfather Diabetes mellitus Grandmother Breast cancer Social History: household members other,children Tobacco & Substance use: Smoking Status Never smoker alcohol intake current alcohol intake frequency holiday/special occasion Substance Use Type marijuana Meds Home Medications and Allergies Home Medications Medication Instructions Recorded Confirmed Type albuterol sulfate 90 mcg/actuation 1 puff INHALATION Q4-6H PRN #6.7 07/07/18 02/21/20 Rx aerosol inhaler gram fluticasone propionate 50 2 spray NASAL DAILY PRN 08/27/18 02/21/20 History mcg/actuation nasal spray,suspension cannabidiol 100 mg/mL oral solution 10 mg PO DAILY PRN ml 11/19/18 02/21/20 History oxycodone-acetaminophen [Percocet] 1 tab PO Q4-6H PRN #20 tab 01/10/20 02/08/20 Rx [place] 1 cap PO BID 02/15/20 02/21/20 History fluorouracil See Rx Instructions .ROUTE 02/16/20 Rx .COMPLEX #1 device ondansetron 8 mg PO Q8H PRN #30 tab 02/16/20 Rx prochlorperazine maleate 10 mg PO Q6H PRN #30 tab 02/16/20 Rx Allergies Allergy/AdvReac Type Severity Reaction Status Date / Time aspirin AdvReac Severe Nausea Verified 02/21/20 10:34 Review of Systems Review of Systems ROS: Yes All systems reviewed with the patient and are negative except as otherwise documented Exam Vital Signs (past 8 hours): - 02/21/20 10:13 Temperature 97.5 F L Pulse Rate 81 Respiratory Rate 16 Blood Pressure 136/97 H Pulse Oximetry 99 Oxygen Delivery Method Room Air Narrative Exam Narrative: Cooperative no apparent distress. Eyes nonicteric. Lungs clear to auscultation no rales or rhonchi. Heart regular rate and rhythm without murmur gallop. Skin of the chest wall and neck without 1st abnormality. Patient is alert and oriented x3. Assessment & Plan Assessment & Plan narrative: Patient with metastatic colorectal cancer for a Port-A-Cath. I have discussed the procedure with her. I discussed the nature and rationale for port. Placed in the subclavian vein or the IJ were discussed. Risks of bleeding, infection, DVT with possible PE, pneumothorax all discussed with her. She appears to understand wishes to proceed.
--- NOTE | 2020-02-21 10:41 | PM.PREOP ---
Pre-operative Note COVID-19 COVID-19 status: Negative Result date/Date tested (Pos, Neg/Pending): 02/18/20 Interval Note History & Physical reviewed/Exam performed by Physician: Yes Changes to H&P: No
[2020-02-21] MEDS: CEFAZOLIN 2 GM/100 ML FROZ.PIGGY IV (10:55)
--- NOTE | 2020-02-21 11:13 | SUR.OPER ---
Supine on padded OR bed, head on pillow, left arm padded and tucked at side, legs uncrossed, safety belt at thigh, tape over blanket over lower legs .
[2020-02-21] MEDS: LIDOCAINE 1% 30 ML INJ (11:20)
[2020-02-21] MEDS: HEPARIN 5,000 UNIT, SODIUM CHLORIDE 0.9% 50 ML IV (11:21)
--- NOTE | 2020-02-21 12:07 | P.OP_ITS ---
Operative Date/Time/Diagnoses Date of procedure: 02/21/20 Time of procedure: 12:07 Pre-op diagnosis: Metastatic colorectal cancer Post-op diagnosis: same Procedure & Clinicians Procedure: Placement of left subclavian Port-A-Cath Same procedure as scheduled: Yes Indications: IV access needed for chemotherapy Surgeon: Rashaun Douglas Click Yes if Unassisted: Yes Anesthesia Type: General Operative Notes Findings: Tip in the superior vena cava. No evidence of pneumothorax. Closure Type: primary Specimen(s): none sent Prosthetic devices, grafts, tissues, transplants, or devices: Port-A-Cath Estimated Blood Loss (mL): 10 Blood products transfused: none Procedure in detail: Patient is placed supine on the operating room table underwent general LMA anesthesia. She was prepped and draped in the usual fa shion. Local anesthetic was infiltrated beneath the left clavicle. Incision was made and carried into the subcu fat. Needle was inserted on 1st attempt into the subclavian vein. Guidewire was passed and the needle removed. A pocket was created inferior to the incision and the port was put together and tapered to appropriate length. Dilator was passed over the guidewire and then the dilator and introducer were passed over it. The dilator and wire were removed. The catheter was pushed through the introducer and the introducer peeled away leaving the catheter in good position. The port was secured to the chest wall with interrupted 2 0 silk. The subcu was closed with interrupted 3-0 Vicryl and skin was closed running 4-0 Vicryl subcuticular stitch and Steri- Strips. The port was aspirated and flushed prior to closure and after closure. Patient tolerated the procedure well. Postprocedure x-ray showed no evidence of pneumothorax with the catheter tip in good position in the superior vena cava Complications: none Post-operative Condition: stable Disposition: PACU
[2020-02-21] MEDS: OXYCODONE/ACETAMINOPHEN 5/325 TABLET 1 TAB PO (12:39)
[2020-02-21] MEDS: ONDANSETRON 4 MG/2 ML INJ IV (12:40)
== END 2020-02-21 13:36 | disposition home or self-care (01) ==
PROVIDERS: Family Provider Family Medicine; PCP Family Medicine; Referring Provider Specialist; Visit Provider Specialist
PROC: (CPT 36561; principal; 2020-02-21 11:15)
DX: C18.9 Malignant neoplasm of colon, unspecified (principal); C79.82 Secondary malignant neoplasm of genital organs; Z45.2 Encounter for adjustment and management of vascular access device; J45.909 Unspecified asthma, uncomplicated; Z51.11 Encounter for antineoplastic chemotherapy; C19 Malignant neoplasm of rectosigmoid junction; C79.89 Secondary malignant neoplasm of other specified sites
CPT/HCPCS: 36561; 71045; 76000; 80053; 82378; 85025; C1788; J0690; J1100; J1644; J2405; J2704; J3010

== ENCOUNTER 2020-04-07 21:00 | Emergency (ER) | payer OTHER, SELFPAY ==
[2020-01-06 11:22] VITALS: BMI 35.7
[2020-04-07 21:08] VITALS: BP 164/97; PULSE 98; RESP 15; TEMP 36.6; O2SAT 97; BMI 37.3
[2020-04-07 21:11] VITALS: BP 164/97; PULSE 102; O2SAT 97
[2020-04-07 21:12] VITALS: O2SAT 97
--- NOTE | 2020-04-07 21:49 | ED_ITS ---
HPI - Headache General Chief Complaint: Headache Stated Complaint: CHEMO PATIENT BLOOD PRESSURE IS HIGH HEADACHE Time Seen by Provider: 04/07/20 21:00 Source: patient and family Mode of arrival: Ambulatory Limitations: no limitations History of Present Illness HPI Narrative: 45-year-old female nonsmoker with history of recurrent colon cancer, currently receiving chemotherapy weekly at the [facility] with a severe, squeezing headache over the past day or so. It seems it came on gradually and was associated with elevated blood pressures. It is behind her eyes, 7/10 in severity an absence of any clear provocation, palliation or radiation. She has had migraines in the past and states this feels like a migraine but it is slightly more intense and in a different area. She denies any other neurologic symptoms such as blurred vision, trouble speech, numbness, tingling, weakness or balance issues. She's had no fever, chills, or neck pain. MD Complaint: headache Onset (ago): hour(s) Onset description: gradual Location: retro-orbital Severity: severe Severity scale (1-10): 7 Quality: aching and throbbing Relieving factors: nothing Exacerbating factors: none Context: occurred at rest Associated symptoms: none Treatments prior to arrival: none Related Data Home Medications Medication Instructions Recorded Confirmed fluticasone propionate 50 2 spray NASAL DAILY PRN 08/27/18 03/21/20 mcg/actuation nasal spray,suspension cannabidiol 100 mg/mL oral solution 10 mg PO DAILY PRN ml 11/19/18 03/21/20 [place] 1 cap PO BID 02/15/20 03/21/20 Previous Rx's Medication Instructions Recorded oxycodone-acetaminophen [Percocet] 1 tab PO Q4H PRN #10 tab 02/21/20 fluorouracil 4,879.2 mg IV NOW #1 device 02/22/20 olanzapine 2.5 - 5 mg PO BID PRN #25 tab 02/23/20 ondansetron HCl 8 mg PO Q12H PRN #20 tab 02/23/20 albuterol sulfate 90 mcg/actuation 1 puff INHALATION Q4-6H PRN #6.7 03/10/20 aerosol inhaler gram amlodipine 5 mg PO DAILY #30 tab 03/21/20 Allergies Allergy/AdvReac Type Severity Reaction Status Date / Time aspirin AdvReac Severe Nausea Verified 04/07/20 21:13 Review of Systems Constitutional Constitutional: Denies chills, Denies fatigue, Denies fever(s), Denies frequent falls, Reports headache(s), Denies lethargy and Denies weakness Eyes Eyes: Denies change in vision, Denies eye discharge, Denies irritation and Denies loss of vision ENT Ears, Nose, Mouth, and Throat: Denies change in voice, Denies dizziness, Reports headache(s), Denies neck pain, Denies sore throat and Denies throat swelling Cardiovascular Cardiovascular: Denies chest pain, Denies irregular heart rhythm, Denies lightheadedness, Denies palpitations, Denies dyspnea, Denies dyspnea on exertion and Denies orthopnea Respiratory Respiratory: Denies cough, Denies dyspnea, Denies dyspnea on exertion and Denies wheezing Gastrointestinal Gastrointestinal: Denies abdominal pain, Denies change in bowel habits, Denies diarrhea, Denies nausea and Denies vomiting Musculoskeletal Musculoskeletal: Denies neck pain and Denies numbness Integumentary/Breasts Skin/Breast: Denies pruritus, Denies erythema, Denies rash and Denies wounds Neurologic Neurologic: Denies behavioral changes, Denies confusion, Denies dizziness, Denies frequent falls, Reports headache(s), Denies loss of vision, Denies numbness and Denies weakness Psychiatric Psychiatric: Denies anxiety, Denies behavioral changes, Denies confusion, Denies depression, Denies homicidal ideation and Denies suicidal ideation Endocrine Endocrine: Denies fatigue, Denies flushing and Denies palpitations Hematologic/Lymphatic Hematologic/Lymphatic: Denies easy bruising Allergic/Immunologic Allergic/Immunologic: Denies urticaria, Denies throat swelling and Denies wheezing Patient History Medical History Abnormal Pap smear of cervix (10/27/14) Anxiety and depression Arthritis Asthma Bronchitis Easy bruisability H/O colon cancer, stage I History of eustachian tube dysfunction HPV (human papilloma virus) infection (10/27/14) Hypoglycemia Lipoma of neck (2019) Migraines Numbness Vaginal delivery Surgical History History of conization of cervix (08/2019) History of third molar tooth extraction Hx of cholecystectomy (~08/1998) Hx of laparoscopy (01/06/20) Hx of tonsillectomy Status post colon resection (03/2018) Status post laparoscopic cholecystectomy Status post LEEP (loop electrosurgical excision procedure) of cervix Family History Grandmother Ovarian cancer Heart disease Grandfather Diabetes mellitus Grandmother Breast cancer Social History number of children: 4 household members: children and other occupational status: employed Smoking Status: Never smoker alcohol intake: current substance use type: does not use and other Smoking Status: Never smoker alcohol intake frequency: holidays/special occasions only Substance Use Type: marijuana Exam Narrative Exam Narrative: GENERAL: [45] year old patient appears stated age. Well- nourished, well-developed patient, in mild distress. HEAD: Atraumatic. Normocephalic. EYES: Pupils equal round and reactive. Extraocular motions intact. No scleral icterus. No injection or drainage. ENT: Nose without bleeding, purulent drainage. Throat without erythema, tonsillar hypertrophy or exudate. Airway patent. NECK: Trachea midline. Non tender CARDIOVASCULAR: Regular rate and rhythm without murmurs, gallops, or rubs. RESPIRATORY: Clear to auscultation. Breath sounds equal bilaterally. No wheezes, rales, or rhonchi. GASTROINTESTINAL: Abdomen soft, non-tender, nondistended. EXTREMITIES: No edema or joint tenderness. BACK: Nontender without deformity or crepitance. No flank tenderness. NEURO: AOx3. SKIN: No rash or erythema of visible areas NIH Stroke Scale 1a. LOC: Patient is alert and keenly responsive (0) 1b. LOC Questions: Patient answers both LOC questions accurately (0) 1c. LOC Commands: Patient performs both tasks correctly (0) 2. Best Gaze: Normal (0) 3. Visual: No visual loss (0) 4. Facial palsy: Normal symmetrical movements (0) 5. Motor arm: No drift (0) 6. Motor leg: No drift (0) 7. Limb ataxia: Absent (0) 8. Sensory: Normal (0) 9. Best language: No aphasia; normal (0) 10. Dysarthria: Normal (0) 11. Extinction and inattention: No abnormality (0) NIHSS: 0 Initial Vital Signs Initial Vital Signs: Vital Signs Temperature 97.8 F 04/07/20 21:08 Pulse Rate 98 H 04/07/20 21:08 Respiratory Rate 15 04/07/20 21:08 Blood Pressure 164/97 H 04/07/20 21:08 Pulse Oximetry 97 04/07/20 21:08 Course Orders Ordered: ED Orders 04/07/20 22:33 CT head/brain wo con Stat Discontinued Medications Diphenhydramine HCl (Diphenhydramine 50 Mg/Ml Vial) 25 mg IV NOW ONE Stop: 04/07/20 22:33 Last Admin: 04/07/20 22:46 Dose: 25 mg Documented by: ELAN Sodium Chloride (Normal Saline 0.9%) 1,000 mls @ 1,000 mls/hr IV BOLUS ONE Stop: 04/07/20 23:31 Last Infusion: 04/08/20 01:04 Dose: 0 mls/hr Documented by: Admin: 04/07/20 22:46 Dose: 1,000 mls/hr Documented by: ELAN Ketorolac Tromethamine (Ketorolac 60 Mg/2 Ml Vial) 15 mg IV NOW ONE Stop: 04/07/20 22:33 Last Admin: 04/07/20 22:47 Dose: 15 mg Documented by: ELAN Metoclopramide HCl (Metoclopramide 10 Mg/2 Ml Inj) 10 mg IV NOW ONE Stop: 04/07/20 22:33 Last Admin: 04/07/20 22:46 Dose: 10 mg Documented by: ELAN Reevaluation(s) Reevaluation #1: near complete resolution of symptoms after the above stated therapies Vital Signs Vital signs: Vital Signs - 8 hr 04/07/20 21:08 04/07/20 21:11 04/07/20 21:12 Temperature 97.8 F Pulse Rate 98 H 102 H Respiratory Rate 15 Blood Pressure 164/97 H 164/97 H Pulse Oximetry 97 97 97 04/07/20 22:15 04/08/20 01:07 Temperature Pulse Rate 87 Respiratory Rate Blood Pressure 149/93 H 158/104 H Pulse Oximetry 99 MDM - Headache Imaging Data CT scan - head: Radiologist's Impression: No significant abnormalities MDM Narrative Medical decision making narrative: Multiple etiologies for patient's symptoms considered including: [Tension headache versus migraine versus hemorrhagic stroke versus meningitis versus metastases versus other] Patient's symptoms improved over duration of stay with above-stated therapies. Findings and discharge diagnosis discussed with patient/family followed by verbalization of understanding Return precautions discussed with patient/family whom verbalize understanding. Discharge Plan Departure Patient Disposition: Home Clinical Impression: Headache Qualifiers: Headache type: unspecified Headache chronicity pattern: acute headache Intractability: not intractable Qualified Code(s): R51.9 - Headache, unspecified Instructions: DI for Headache Activity Restrictions/Additional Instructions: *You have been diagnosed with [ migraine type headache ] *What to do: *Continue to take medications as directed *Follow up with your primary care provider in 2-3 days, call for an appointment. Let them know you were seen in the Emergency Department and that we ask that you be seen in follow up *Return to ER if you should have any new, worsening or concerning symptoms Prescriptions: No Action albuterol sulfate [Ventolin HFA] 90 mcg/actuation HFA aerosol inhaler 1 puff INHALATION Q4-6H PRN (Reason: Shortness of breath/Cough) Qty: 6.7 RF: 5 fluticasone propionate 50 mcg/actuation spray,suspension 2 spray NASAL DAILY PRN (Reason: Seasonal allergies) RF: 0 cannabidiol 100 mg/mL solution 10 mg PO DAILY PRN (Reason: Pain) RF: 0 [place] 1 cap PO BID RF: 0 fluorouracil 2.5 gram/50 mL Solution 4,879.2 mg IV NOW Qty: 1 RF: 0 olanzapine 5 mg Tablet 2.5 - 5 mg PO BID PRN (Reason: Nausea) Qty: 25 RF: 1 ondansetron HCl 8 mg Tablet 8 mg PO Q12H PRN (Reason: Nausea) Qty: 20 RF: 1 amlodipine 5 mg Tablet 5 mg PO DAILY Qty: 30 RF: 3 oxycodone-acetaminophen [Percocet] 5-325 mg tablet 1 tab PO Q4H PRN (Reason: pain) Qty: 10 RF: 0 Referrals: Fernanda Esquivel DO [Primary Care Provider] -
[2020-04-07 22:15] VITALS: BP 149/93
--- NOTE | 2020-04-07 22:33 | DI.CT.S_ITS ---
PROCEDURE: CT HEAD/BRAIN WO CON INDICATIONS: atypical headache, HTN, history of cancer TECHNIQUE: Noncontrast 4.5 mm thick angled axial sections acquired from the foramen magnum to the vertex, with coronal and sagittal reformats. For radiation dose reduction, the following was used: automated exposure control, adjustment of mA and/or kV according to patient size. COMPARISON: None. FINDINGS: Image quality: Excellent. CSF spaces: Basal cisterns are patent. No extra-axial fluid collections. Ventricles are normal in size and shape. Brain: No midline shift. No intracranial masses or hemorrhage. Pena-white matter interface is normal. Skull and face: Calvarium and visualized facial bones are intact, without suspicious lesions. Sinuses: Visualized sinuses and mastoids are clear. IMPRESSION: No acute intracranial abnormality. This report is concordant with the overnight preliminary interpretation. Dictated by: Randall Moise M.D. on 04/08/2020 at 9:20 Approved by: Randall Moise M.D. on 04/08/2020 at 9:22
[2020-04-07] MEDS: diphenhydrAMINE 50 MG/ML VIAL 25 MG IV (22:46)
[2020-04-07] MEDS: METOCLOPRAMIDE 10 MG/2 ML INJ IV (22:46)
[2020-04-07] MEDS: SODIUM CHLORIDE 0.9% 1,000 ML 1000 ML IV (22:46)
[2020-04-07] MEDS: KETOROLAC 60 MG/2 ML VIAL 15 MG IV (22:47)
[2020-04-08 01:07] VITALS: BP 158/104; PULSE 87; O2SAT 99
== END 2020-04-08 01:13 | disposition home or self-care (01) ==
PROVIDERS: Emergency Provider Emergency Medicine; Family Provider Family Medicine; PCP Family Medicine
DX: R51.9 Headache, unspecified (principal); C19 Malignant neoplasm of rectosigmoid junction
CPT/HCPCS: 70450; 96361; 96374; 96375; 99283; 99284; J1200; J1885; J2765

== ENCOUNTER → 2020-04-14 12:27 | Outpatient (CLI) | payer OTHER, SELFPAY ==
[2020-01-06 11:22] VITALS: BMI 35.7
--- NOTE | 2020-04-14 12:29 | DI.CT.S_ITS ---
PROCEDURE: CT CHEST ABD PEL W CON INDICATIONS: Follow-up metastatic colorectal cancer after chemo TECHNIQUE: After the administration of oral and intravenous contrast, 5 mm thick sections acquired from the lung apices to the symphysis. 5 mm coronal and sagittal reformats were performed, with additional 7 mm coronal MIP reformats through the lungs. For radiation dose reduction, the following was used: automated exposure control, adjustment of mA and/or kV according to patient size. COMPARISON: [facility], [place], [place] PET CT FUSION SKULL 2 THIGH, 04/15/2018, 16:56. [facility], CT, CT HEAD/BRAIN WO CON, 04/07/2020, 22:36. [facility], CT, CT BIOPSY ABDOMEN OR RETROPERITONEAL, 01/31/2020, 9:53. [facility], US, US PELVIC COMPLETE, 12/22/2019, 11:05. [facility], [place], CT PET SKULL BASE TO MID THIGH, 02/22/2020, 13:36. [facility], CT, CT CHEST ABD PEL W CON, 12/15/2019, 10:23. FINDINGS: Image quality: Excellent. CHEST: Lungs and pleura: Small lung nodules were present on the last scan. The 2 mm nodule appears unchanged in size. The 3 mm ground-glass nodule seen on the last exam is no longer present. No new nodules. Nodule 1: 2 mm; JEANE; series 4, image 184. No acute airspace opacities. No pleural effusions or pneumothorax. Central and peripheral airways appear patent and normal in caliber. Mediastinum: Heart size is normal. No pericardial effusion. No mediastinal or hilar adenopathy by size criteria. Thoracic aorta and central pulmonary arteries are normal in size. Esophagus is normal in caliber. No hiatal hernia. Chest wall: No axillary or supraclavicular adenopathy by size criteria. Thyroid gland is normal. ABDOMEN: Solid organs: Hepatic steatosis. Liver is normal in size and enhancement. Gallbladder is surgically absent . Common bile duct is dilated measuring up to 15 mm in diameter, but minimally changed from the last exam. Pancreas enhances normally. Spleen is normal in size and enhancement. No adrenal nodules. Kidneys demonstrate normal size and enhancement, without hydronephrosis. Peritoneum and bowel: Bowel loops demonstrate normal wall thickness and caliber. No free air. There is a small amount of ascites. Nodes and vessels: No retroperitoneal or mesenteric adenopathy by size criteria. Aorta and inferior vena cava are normal in size. Miscellaneous: No ventral hernias. PELVIS: Genitourinary: There is a large right adnexal mass measuring 3.8 x 6.8 cm, slightly decreased in size (previously 4.4 x 7.8 cm) on 12/15/2019. Left ovary appears enlarged measuring 2.2 x 3.8 cm, also slightly decreased in size (previously 2.4 x 4.4 cm). There is a small amount of free fluid in the cul-de-sac, minimally increased. Uterus is unremarkable. Bladder wall thickness is normal. Miscellaneous: No inguinal hernias or adenopathy. Bones: A 2.7 cm lucent lesion in sacral body appears unchanged. A 4 mm sclerotic lesion in inferior T9 vertebral body is also unchanged, most likely a bone island. No vertebral body compression fractures. IMPRESSION: 1. Interval slight decrease in size of right and left adnexal masses consistent with residual metastases. 2. Minimal increase in small amount of free fluid in pelvis. 3. Stable 2 mm left upper lobe lung nodule. A ground-glass nodule in the left upper lobe is no longer present. 4. Stable lucent lesion in sacrum. Dictated by: Shadi Herring M.D. on 04/14/2020 at 17:00 Approved by: Shadi Herring M.D. on 04/14/2020 at 17:29
== END ==
PROVIDERS: Family Provider Family Medicine; PCP Family Medicine; Referring Provider Internal Medicine; Visit Provider Internal Medicine
DX: C19 Malignant neoplasm of rectosigmoid junction (principal); C79.89 Secondary malignant neoplasm of other specified sites; R91.8 Other nonspecific abnormal finding of lung field; M89.9 Disorder of bone, unspecified; Z92.21 Personal history of antineoplastic chemotherapy
CPT/HCPCS: 71260; 74177; Q9967

== ENCOUNTER → 2020-05-12 09:28 | Outpatient (CLI) | payer OTHER, SELFPAY ==
[2020-01-06 11:22] VITALS: BMI 35.7
[2020-05-12 09:58] LABS: Hemoglobin A1C% w Est Avg Glu 8.6 % (4.0-6.0)
[2020-05-12 10:29] LABS: Alanine Aminotransferase 303 IU/L (<35); Albumin 4.1 g/dL (3.5-5.0); Albumin Globulin Ratio 1.5 (1.0-2.8); Alkaline Phosphatase 230 U/L (38-126); Amylase 75 U/L (30-110); Aspartate Aminotransferase 170 IU/L (14-36); BUN Creatinine Ratio 26.3 (6-22); Bilirubin Total 0.4 mg/dL (0.2-1.3); Blood Urea Nitrogen 10 mg/dL (7-17); Carbon Dioxide 26 mmol/L (22-32); Chloride 105 mmol/L (98-107); Estimated Glomerular Filt Rate > 60.0 mL/min (>60); Globulin 2.7 g/dL (1.7-4.1); Glucose 339 mg/dL (70-100); HEMOLYSIS < 15 (0-50); Lipase 1050 U/L (23-300); Potassium 4.2 mmol/L (3.4-5.1); Sodium 135 mmol/L (137-145); Total Protein 6.8 g/dL (6.3-8.2)
== END ==
PROVIDERS: Family Provider Family Medicine; PCP Family Medicine; Referring Provider Family Medicine; Visit Provider Family Medicine
DX: R73.09 Other abnormal glucose (principal)
CPT/HCPCS: 36415; 80053; 82150; 83036; 83690

== ENCOUNTER → 2020-05-30 11:00 | Outpatient (CLI) | payer MEDICAID, OTHER, SELFPAY ==
[2020-01-06 11:22] VITALS: BMI 35.7
--- NOTE | 2020-05-30 13:48 | DIET.PN ---
Diabetes Intake: Initial Assessment Assess: Ms. Thomason is a 45 yof referred for recent diagnosis of type 2 diabetes. She has pmhx significant for metastatic colon cancer. She has been experiencing worsening hyperglycemia partly due to an increase in steroids as well as changing in eating habits. She admits during her chemotherapy weeks she is not able to eat much other than potatoes, noodle soup, fruit, Gatorade, sweet tea and body armor drinks. She was recently started on metformin and has now titrate up to 1000mg BID. She does not exercise due to extreme fatigue, but is looking forward to having some energy again. Labs: Per pt report: A1c: 8.6 [id number] 1hr PP: 298-444 Meds: metformin 1000mg BID Diet: per 24 hr recall: B: Usually skips; eggs w/ grits; oatmeal w/ craisins, honey, pecans L: skips or veggie tray w/ sour cream dressing; chz crackers w/ smoked salmon D: chicken noodle soup w/ eggs; cabbage with fish; protein pasta Sn: fruit; nuts (several times a day) Wt: 233lb Ht: 66in BMI: 37.6 BP: 122/80 DX: Altered nutrition related laboratory values related to impaired glucose metabolism, lack of previous exposure to nutrition information as evidenced by pt report, diagnosis of diabetes, previous diet high in refined carbohydrates. Intervention: 1. Completed intake assessment. Discussed barriers to care. 2. Discussed pathophysiology of diabetes. Reviewed A1c and its correlation to blood glucose numbers. Discussed recommended BG ranges. 3. Discussed importance of self-monitoring, how often, and when to check. 4. Reviewed hyper/hypoglycemia and treatment. 5. Reviewed safe disposal of equipment (strip/lancets/insulin needles). 6. Created SMART goals for pt self-care and success. 7. Discussed program curriculum outline and class needs based on individual goals. SMART Goals: 1. Find foods pt can tolerate while maintaining good glucose control. Monitor/Evaluate: Pt will attend full DSME program by individual appt only due to illness and conflicting therapy apptointments. Basic Nutrition class scheduled for . Would like to discuss other DM meds options.
== END ==
PROVIDERS: Family Provider Family Medicine; PCP Family Medicine; Referring Provider Family Medicine; Visit Provider Family Medicine
DX: E11.65 Type 2 diabetes mellitus with hyperglycemia (principal); E66.9 Obesity, unspecified; Z68.37 Body mass index [BMI] 37.0-37.9, adult; Z71.3 Dietary counseling and surveillance; Z85.038 Personal history of other malignant neoplasm of large intestine
CPT/HCPCS: G0108

== ENCOUNTER → 2020-06-13 10:50 | Outpatient (CLI) | payer OTHER, MEDICAID, SELFPAY ==
[2020-01-06 11:22] VITALS: BMI 35.7
--- NOTE | 2020-06-13 10:58 | DIET.PN ---
Diabetes: Healthy Eating 1 Intervention: ? Discussed pathophysiology of diabetes and impact of nutrition/diet on blood sugar control.? Discussed fed versus non-fed state.?? ? Reviewed importance of Balance, Variety, and Moderation. ? Discussed the effect of carbohydrates/protein/fat on blood sugar control.? ? Stressed importance of consistent carbohydrate intake at each meal and provided instructions for recommended servings/portions of carbohydrates/protein per meal. Provided educational material. ? Reviewed carbohydrate counting and measuring carbohydrate content via serving sizes and reading nutrition labels.? Provided handouts.?? ? Discussed the difference between simple versus complex carbohydrates and the effect of fiber on blood sugar control.? Discussed various methods to increase fiber content in diet. ? Discussed the plate method for creating more carbohydrate conscious balanced meals. ? Stressed importance of meal timing and not going >4-5 hours between meals. Encouraged adding protein to evening snack to support glucose control overnight. ? Discussed importance of making dietary habits part of lifestyle change. Note: pt reports frequent change in appetite. She has been meal prepping and freezing foods. Her blood sugar has been in the 190s fasting which is improved. Pt will continue 1:1 visits due to immune suppressed and conflicting therapy appts.
== END ==
PROVIDERS: Family Provider Family Medicine; PCP Family Medicine; Referring Provider Family Medicine; Visit Provider Family Medicine
DX: E11.9 Type 2 diabetes mellitus without complications (principal); Z71.3 Dietary counseling and surveillance
CPT/HCPCS: G0108

== ENCOUNTER → 2020-06-30 11:24 | Outpatient (CLI) | payer OTHER, MEDICAID, SELFPAY ==
[2020-01-06 11:22] VITALS: BMI 35.7
--- NOTE | 2020-06-30 11:58 | DI.CT.S_ITS ---
PROCEDURE: CT CHEST ABD PEL W CON INDICATIONS: Follow-up after chemo, new vaginal bleeding TECHNIQUE: After the administration of oral and intravenous contrast, 5 mm thick sections acquired from the lung apices to the symphysis. 5 mm coronal and sagittal reformats were performed, with additional 7 mm coronal MIP reformats through the lungs. For radiation dose reduction, the following was used: automated exposure control, adjustment of mA and/or kV according to patient size. COMPARISON: [facility], CT, CT CHEST ABD PEL W CON, 04/14/2020, 13:39. FINDINGS: Image quality: Excellent. CHEST: Lungs and pleura: A 2 millimeter nodule in the left upper lobe/lingula is unchanged. No interval development of new nodules or masses. No acute air space opacities. No pleural effusions or pneumothorax. Central and peripheral airways are patent and normal in caliber. Mediastinum: Heart size is normal. No pericardial effusion. No mediastinal adenopathy by size criteria. Thoracic aorta and central pulmonary arteries are normal in size. Esophagus is normal in caliber. No hiatal hernia. Bones and chest wall: No suspicious bony lesions. No vertebral body compression fractures. No axillary or supraclavicular adenopathy by size criteria. Thyroid gland is normal . ABDOMEN: Solid organs: Liver: The liver has no mass or intrahepatic biliary ductal dilatation. Hepatic density is decreased consistent with hepatic steatosis. The portal vein and hepatic veins are patent. Biliary: Status post cholecystectomy. Pancreas: The pancreas has no mass or ductal dilatation. There is no surrounding inflammation. Spleen: Normal size. There are no masses. Adrenals: No hypertrophy or nodules. Kidneys: No obstructive calculus or hydronephrosis. No solid mass. No cystic mass. Bowel: The distal esophagus and stomach are normal. The small bowel has a normal caliber and appearance. The terminal ileum is normal. The large bowel has anastomotic sutures at the rectosigmoid junction.. The appendix is normal. No free fluid or air. Nodes and vessels: No retroperitoneal or mesenteric adenopathy by size criteria. Aorta and inferior vena cava are normal in size. Abdominal wall: No abdominal wall mass or hernia. PELVIS: Genitourinary: A right adnexal mass measures 6.1 x 3.1 centimeters, slightly smaller compared to the prior study when it measured 6.8 x 3.8 centimeters. The left ovary and adnexa has a normal appearance. The left ovary measures 2.4 x 2.3 centimeters, relatively unchanged. Miscellaneous: No inguinal hernias or adenopathy. Bones and abdominal wall: A 2.7 centimeter lucent lesion in the sacral body is unchanged. No suspicious bony lesions. No vertebral body compression fractures. There is a stable 4 millimeter sclerotic focus in the T9 vertebral body. IMPRESSION: 1. Interval continued decrease in the size of the right adnexal mass. 2. Left ovary/adnexal mass is unchanged. 3. Stable 2 millimeter left upper lobe nodule. 4. Stable lucent lesion in the sacrum. 4. Stable 4 millimeter sclerotic focus in the T9 vertebral body. Dictated by: Eric Singletary M.D. on 06/30/2020 at 12:57 Approved by: Eric Singletary M.D. on 06/30/2020 at 13:12
== END ==
PROVIDERS: Family Provider Family Medicine; PCP Family Medicine; Referring Provider Internal Medicine; Visit Provider Internal Medicine
DX: N93.9 Abnormal uterine and vaginal bleeding, unspecified (principal); C19 Malignant neoplasm of rectosigmoid junction
CPT/HCPCS: 71260; 74177; Q9967

== ENCOUNTER → 2020-10-13 11:00 | Outpatient (CLI) | payer OTHER, MEDICAID, SELFPAY ==
[2020-01-06 11:22] VITALS: BMI 35.7
[2020-10-13 12:21] LABS: Add Manual Diff / Slide Review NO; Basophils Absolute Auto 0 /uL (0-100); Basophils Percent Auto 0.3 % (0-2); Eosinophils Absolute Auto 100 /uL (0-450); Eosinophils Percent Auto 2.9 % (2-4); Hematocrit 33.2 % (36-46); Lymphocytes Absolute Auto 1300 /uL (1100-4500); Lymphocytes Percent Auto 28.5 % (25-40); Mean Corpuscular HGB Conc 33.1 % (30-36); Mean Corpuscular Hemoglobin 29.5 PG (26-34); Mean Corpuscular Volume 89.1 fL (80-100); Monocytes Absolute Auto 300 /uL (0-900); Monocytes Percent Auto 6.5 % (3-14); Neutrophils Absolute Auto 2800 /uL (1500-7000); Neutrophils Percent Auto 61.8 % (50-75); Platelet Count 170 X10^3/uL (150-400); Red Blood Cell Count 3.72 X10^6/uL (4.0-5.2); Red Cell Distribution Width 16.4 % (11.6-14.8); White Blood Cell Count 4.5 X10^3/uL (4.5-11.0)
[2020-10-13 12:31] LABS: Hemoglobin A1C% w Est Avg Glu 5.7 % (4.0-6.0)
[2020-10-13 12:52] LABS: Alanine Aminotransferase 58 IU/L (<35); Albumin 4.5 g/dL (3.5-5.0); Albumin Globulin Ratio 1.5 (1.0-2.8); Alkaline Phosphatase 134 U/L (38-126); Aspartate Aminotransferase 53 IU/L (14-36); BUN Creatinine Ratio 24.1 (6-22); Bilirubin Total 0.3 mg/dL (0.2-1.3); Blood Urea Nitrogen 13 mg/dL (7-17); Calcium 9.7 mg/dL (8.4-10.2); Carbon Dioxide 26 mmol/L (22-32); Chloride 107 mmol/L (98-107); Estimated Glomerular Filt Rate > 60.0 mL/min (>60); Glucose 116 mg/dL (70-100); HEMOLYSIS < 15 (0-50); Potassium 3.9 mmol/L (3.4-5.1); Sodium 141 mmol/L (137-145); Total Protein 7.5 g/dL (6.3-8.2)
== END ==
PROVIDERS: Family Provider Family Medicine; PCP Family Medicine; Referring Provider Family Medicine; Visit Provider Family Medicine
DX: E11.65 Type 2 diabetes mellitus with hyperglycemia (principal); D69.6 Thrombocytopenia, unspecified
CPT/HCPCS: 36415; 80053; 83036; 85025

== ENCOUNTER → 2021-01-02 11:37 | Outpatient (CLI) | payer OTHER, MEDICAID, SELFPAY ==
[2020-01-06 11:22] VITALS: BMI 35.7
[2021-01-02 12:40] LABS: COVID19 -Nasal RAPID Negative (Negative)
[2021-01-02 12:43] LABS: Add Manual Diff / Slide Review NO; Basophils Absolute Auto 0 /uL (0-100); Basophils Percent Auto 0.5 % (0-2); Eosinophils Absolute Auto 100 /uL (0-450); Eosinophils Percent Auto 2.5 % (2-4); Hematocrit 36.9 % (36-46); Hemoglobin 12.1 g/dL (12.0-16.0); Lymphocytes Absolute Auto 1200 /uL (1100-4500); Lymphocytes Percent Auto 23.6 % (25-40); Mean Corpuscular HGB Conc 32.9 % (30-36); Mean Corpuscular Hemoglobin 27.7 PG (26-34); Mean Corpuscular Volume 84.2 fL (80-100); Monocytes Absolute Auto 300 /uL (0-900); Monocytes Percent Auto 6.1 % (3-14); Neutrophils Absolute Auto 3500 /uL (1500-7000); Neutrophils Percent Auto 67.3 % (50-75); Platelet Count 169 X10^3/uL (150-400); Red Blood Cell Count 4.39 X10^6/uL (4.0-5.2); Red Cell Distribution Width 16.9 % (11.6-14.8); White Blood Cell Count 5.2 X10^3/uL (4.5-11.0)
[2021-01-02 13:17] LABS: Hemoglobin A1C% w Est Avg Glu 6.4 % (4.0-6.0)
[2021-01-02 14:07] LABS: Alanine Aminotransferase 39 IU/L (<35); Albumin 4.4 g/dL (3.5-5.0); Albumin Globulin Ratio 1.7 (1.0-2.8); Alkaline Phosphatase 96 U/L (38-126); Aspartate Aminotransferase 34 IU/L (14-36); BUN Creatinine Ratio 26.4 (6-22); Bilirubin Total 0.4 mg/dL (0.2-1.3); Blood Urea Nitrogen 14 mg/dL (7-17); Calcium 9.8 mg/dL (8.4-10.2); Carbon Dioxide 28 mmol/L (22-32); Chloride 105 mmol/L (98-107); Estimated Glomerular Filt Rate > 60.0 mL/min (>60); Globulin 2.6 g/dL (1.7-4.1); Glucose 115 mg/dL (70-100); HEMOLYSIS < 15 (0-50); Potassium 4.4 mmol/L (3.4-5.1); Sodium 143 mmol/L (137-145)
== END ==
PROVIDERS: Family Provider Family Medicine; PCP Family Medicine; Referring Provider Family Medicine; Visit Provider Family Medicine
DX: R05.9 Cough, unspecified (principal); Z20.822 Contact with and (suspected) exposure to COVID-19; D64.9 Anemia, unspecified; E11.9 Type 2 diabetes mellitus without complications; R74.01 Elevation of levels of liver transaminase levels
CPT/HCPCS: 36415; 80053; 83036; 85025; 87635

== ENCOUNTER → 2021-01-29 17:19 | Outpatient (CLI) | payer OTHER, MEDICAID, SELFPAY ==
[2020-01-06 11:22] VITALS: BMI 35.7
[2021-01-29 19:22] LABS: COVID19 -Nasal RAPID POSITIVE (Negative)
== END ==
PROVIDERS: Family Provider Family Medicine; PCP Family Medicine; Referring Provider Nurse Practitioner Family; Visit Provider Nurse Practitioner Family
DX: U07.1 COVID-19 (principal); Z20.822 Contact with and (suspected) exposure to COVID-19
CPT/HCPCS: 87635

== ENCOUNTER → 2021-05-25 13:48 | Outpatient (CLI) | payer MEDICAID, SELFPAY ==
[2020-01-06 11:22] VITALS: BMI 35.7
[2021-05-25 14:58] LABS: Add Manual Diff / Slide Review NO; Basophils Absolute Auto 0 /uL (0-100); Basophils Percent Auto 0.2 % (0-2); Eosinophils Absolute Auto 0 /uL (0-450); Eosinophils Percent Auto 0.5 % (2-4); Hemoglobin 11.4 g/dL (12.0-16.0); Lymphocytes Absolute Auto 1300 /uL (1100-4500); Lymphocytes Percent Auto 30.3 % (25-40); Mean Corpuscular HGB Conc 33.4 % (30-36); Mean Corpuscular Hemoglobin 29.3 PG (26-34); Mean Corpuscular Volume 87.6 fL (80-100); Monocytes Absolute Auto 400 /uL (0-900); Monocytes Percent Auto 8.9 % (3-14); Neutrophils Absolute Auto 2600 /uL (1500-7000); Neutrophils Percent Auto 60.1 % (50-75); Platelet Count 94 X10^3/uL (150-400); Red Blood Cell Count 3.89 X10^6/uL (4.0-5.2); Red Cell Distribution Width 18.6 % (11.6-14.8); White Blood Cell Count 4.3 X10^3/uL (4.5-11.0)
[2021-05-25 15:04] LABS: Alanine Aminotransferase 54 IU/L (<35); Albumin 4.3 g/dL (3.5-5.0); Albumin Globulin Ratio 1.3 (1.0-2.8); Alkaline Phosphatase 127 U/L (38-126); Aspartate Aminotransferase 47 IU/L (14-36); BUN Creatinine Ratio 22.7 (6-22); Bilirubin Total 0.4 mg/dL (0.2-1.3); Blood Urea Nitrogen 10 mg/dL (7-17); Carbon Dioxide 27 mmol/L (22-32); Chloride 107 mmol/L (98-107); Estimated Glomerular Filt Rate > 60.0 mL/min (>60); Globulin 3.2 g/dL (1.7-4.1); Glucose 167 mg/dL (70-100); HEMOLYSIS < 15 (0-50); Potassium 4.1 mmol/L (3.4-5.1); Sodium 140 mmol/L (137-145); Total Protein 7.5 g/dL (6.3-8.2)
[2021-05-25 15:11] LABS: Hemoglobin A1C% w Est Avg Glu 7.8 % (4.0-6.0)
== END ==
PROVIDERS: Family Provider Family Medicine; PCP Family Medicine; Referring Provider Family Medicine; Visit Provider Family Medicine
DX: C20 Malignant neoplasm of rectum (principal); C79.89 Secondary malignant neoplasm of other specified sites; E11.9 Type 2 diabetes mellitus without complications; I15.9 Secondary hypertension, unspecified; C19 Malignant neoplasm of rectosigmoid junction
CPT/HCPCS: 36415; 80053; 83036; 85025

== ENCOUNTER → 2021-08-14 13:08 | Outpatient (CLI) | payer MEDICAID, SELFPAY ==
[2020-01-06 11:22] VITALS: BMI 35.7
[2021-08-14 15:11] LABS: Hemoglobin A1C% w Est Avg Glu 7.4 % (4.0-6.0)
== END ==
PROVIDERS: Family Provider Family Medicine; PCP Family Medicine; Referring Provider Family Medicine; Visit Provider Family Medicine
DX: E11.9 Type 2 diabetes mellitus without complications (principal)
CPT/HCPCS: 36415; 83036

== ENCOUNTER 2022-09-05 15:17 | Emergency (ER) | payer MEDICARE, MEDICAID, SELFPAY ==
[2020-01-06 11:22] VITALS: BMI 35.7
[2022-09-05] VITALS (9 sets, daily range): BP systolic 180; BP diastolic 94; PULSE 86–102; RESP 14–30; TEMP 36.8; O2SAT 97–98; BMI 36.1
--- NOTE | 2022-09-05 15:40 | ED_ITS ---
HPI - Abdominal Pain <Pietro LuuDO jeovanny - Last Filed: 09/07/22 07:26> General Chief Complaint: Abdominal Pain Stated Complaint: sent by sabrina Argueta abd patient Time Seen by Provider: 09/05/22 15:40 Source: patient Mode of arrival: Ambulatory History of Present Illness HPI narrative: 47-year-old female nonsmoker with known stage IV colorectal cancer with metastases which has been managed by [facility] in [place] is sent here for evaluation of worsening abdominal pain, nausea and no bowel movements. She states that she is been worsening over the past few days and is now having difficulty passing gas. She recently switched up her chemotherapy regimen on Friday and has had problems with constipation under previous circumstances similar to this. She denies fever or chills. She is had no trouble with dysu nathan, frequency or urgency. Her pain is severe when she moves and improves with rest. Related Data Home Medications Medication Instructions Recorded Confirmed cannabidiol 100 mg/mL oral solution 10 mg PO DAILY PRN Pain 11/19/18 07/30/22 [place] 1 cap PO BID 02/15/20 07/30/22 lidocaine 5 % topical cream 1 applic topical BID PRN 12/20/21 07/30/22 pantoprazole 40 mg tablet,delayed 40 mg PO DAILY 12/20/21 07/30/22 release Previous Rx's Medication Instructions Recorded blood sugar diagnostic (Blood #50 ea 05/12/20 Glucose Test strips) lancets (Microlet Lancet) #100 ea 05/12/20 fluticasone propionate 50 2 spray intranasal DAILY PRN 08/25/20 mcg/actuation nasal Seasonal allergies #9.9 mL spray,suspension albuterol sulfate 2.5 mg/0.5 mL 5 mg inhalation Q6H PRN shortness 01/25/21 solution for nebulization of breath or wheezing #120 ea albuterol sulfate 2.5 mg/3 mL 2.5 mg (3 mL) inhalation Q6H PRN 01/25/21 (0.083 %) solution for nebulization shortness of breath or wheezing #120 mL nebulizer #1 ea 01/25/21 albuterol sulfate 90 mcg/actuation See Rx Instructions .Route 03/18/22 aerosol inhaler .COMPLEX #6.7 grams amitriptyline 10 mg tablet 10 mg PO BEDTIME #30 tabs 07/30/22 amlodipine 10 mg tablet 10 mg PO DAILY #90 tabs 07/30/22 glipizide 10 mg tablet, extended 10 mg PO DAILY #90 tabs 07/30/22 release 24 hr lisinopril 20 mg tablet 20 mg PO DAILY #90 tabs 07/30/22 meloxicam 7.5 mg tablet 7.5 mg PO BID PRN pain #14 tabs 09/05/22 Allergies Allergy/AdvReac Type Severity Reaction Status Date / Time aspirin AdvReac Severe Nausea Verified 09/05/22 15:26 Ct contrast Allergy Intermediate Flushing, Uncoded 07/30/22 10:08 itching Review of Systems <Pietro Cavanaugh DO - Last Filed: 09/07/22 07:26> Review of Systems Narrative: GENERAL: Denies chills, fatigue, malaise, fever, sweats. HEENT: Denies sinus pain, ear pain, sore throat, difficulty swallowing, dizziness. RESPIRATORY: Denies dyspnea, cough, wheezing, hemoptysis, sputum. CARDIOVASCULAR: Denies chest pain, palpitations, orthopnea, edema, GASTROINTESTINAL: See HPI : Denies dysuria, frequency, incontinence, hematuria, urinary retention. MUSCULOSKELETAL: denies weakness, joint pain, or bony pain SKIN: Denies rash, skin lesions, or other NEUROLOGIC: Denies weakness, headache, numbness, change in speech, confusion, seizures, incoordination. PSYCHIATRIC: No concerning psychosocial issues. 12 point review of systems is negative except for those stated above Patient History <Pietro Cavanaugh DO - Last Filed: 09/07/22 07:26> Medical History Abnormal Pap smear of cervix (10/27/14) Anxiety and depression Arthritis Asthma Bronchitis Easy bruisability Fatty liver H/O colon cancer, stage I History of eustachian tube dysfunction HPV (human papilloma virus) infection (10/27/14) Hypoglycemia Lipoma of neck (2019) Migraines Numbness Secondary hypertension Type 2 diabetes mellitus Vaginal delivery Surgical History History of conization of cervix (08/2019) History of third molar tooth extraction Hx of cholecystectomy (~08/1998) Hx of laparoscopy (01/06/20) Hx of tonsillectomy S/P exploratory laparotomy S/P laparoscopic hysterectomy (09/04/20) Status post colon resection (03/2018) Status post laparoscopic cholecystectomy Status post LEEP (loop electrosurgical excision procedure) of cervix Family History Grandmother Ovarian cancer Heart disease Grandfather Diabetes mellitus Grandmother Breast cancer Social History number of children: 4 household members: children and other occupational status: employed Smoking Status: Never smoker alcohol intake: current substance use type: does not use and other eating out: 1-3 times/week Smoking Status: Never smoker alcohol intake frequency: holidays/special occasions only Substance Use Type: marijuana Exam <Pietro Cavanaugh DO - Last Filed: 09/07/22 07:26> Narrative Exam Narrative: GENERAL: [47] year old patient appears stated age. Well-developed patient, in mild distress. HEAD: Atraumatic. Normocephalic. EYES: Pupils equal round and reactive. Extraocular motions intact. No scleral icterus. No injection or drainage. ENT: Nose without bleeding, purulent drainage. Throat without erythema, tonsillar hypertrophy or exudate. Airway patent. NECK: Trachea midline. Non tender CARDIOVASCULAR: Regular rate and rhythm without murmurs, gallops, or rubs. RESPIRATORY: Clear to auscultation. Breath sounds equal bilaterally. No wheezes, rales, or rhonchi. GASTROINTESTINAL: Abdomen soft, slightly distended, decreased bowel sounds th roughout, generally tender EXTREMITIES: No edema or joint tenderness. BACK: Nontender without deformity or crepitance. No flank tenderness. NEURO: AOx3. SKIN: No rash or erythema of visible areas Initial Vital Signs Initial Vital Signs: Vital Signs Temperature 98.2 F 09/05/22 15:21 Pulse Rate 102 H 09/05/22 15:21 Respiratory Rate 18 09/05/22 15:21 Blood Pressure 180/94 H 09/05/22 15:21 Pulse Oximetry 97 09/05/22 15:21 Oxygen Delivery Method Room Air 09/05/22 15:21 <Yvette Garcia DO - Last Filed: 09/06/22 03:50> Initial Vital Signs Initial Vital Signs: Vital Signs Temperature 98.2 F 09/05/22 15:21 Pulse Rate 102 H 09/05/22 15:21 Respiratory Rate 18 09/05/22 15:21 Blood Pressure 180/94 H 09/05/22 15:21 Pulse Oximetry 97 09/05/22 15:21 Oxygen Delivery Method Room Air 09/05/22 15:21 Course <Pietro Cavanaugh, DO - Last Filed: 09/07/22 07:26> Orders Ordered: Discontinued Medications Diphenhydramine HCl (Diphenhydramine 50 Mg/Ml Vial) 25 mg IV NOW ONE Stop: 09/05/22 15:42 Last Admin: 09/05/22 17:12 Dose: 25 mg Documented By: NR Famotidine (Famotidine 20 Mg/2 Ml Vial) 20 mg IV NOW ONE Stop: 09/05/22 15:43 Last Admin: 09/05/22 17:10 Dose: 20 mg Documented By: NR Sodium Chloride (Normal Saline 0.9%) 1,000 mls @ 1,000 mls/hr IV BOLUS ONE Stop: 09/05/22 16:40 Last Infusion: 09/05/22 18:59 Dose: 0 mls/hr Documented By: Admin: 09/05/22 17:38 Dose: 1,000 mls/hr Documented By: NR Ketorolac Tromethamine (Ketorolac 30 Mg/Ml Vial) 15 mg IV NOW ONE Stop: 09/05/22 19:25 Last Admin: 09/05/22 19:51 Dose: 15 mg Documented By: SIMI Lidocaine HCl (Lidocaine 1% 20 Ml) 20 ml INJ INTRA-OP ONE Stop: 09/05/22 16:14 Last Admin: 09/05/22 16:15 Dose: 0.5 ml Documented By: NR Methylprednisolone (Methylprednisolone 125 Mg/2 Ml Vial) 125 mg IV NOW ONE Stop: 09/05/22 15:42 Last Admin: 09/05/22 17:12 Dose: 125 mg Documented By: NR Ondansetron HCl (Ondansetron 4 Mg/2 Ml Inj) 4 mg IV NOW PRN PRN Reason: Nausea And Vomiting Vital Signs Vital signs: Vital Signs - 8 hr 09/05/22 15:21 09/05/22 16:01 09/05/22 16:30 Temperature 98.2 F Pulse Rate 102 H 99 H 94 H Respiratory Rate 18 23 14 Blood Pressure 180/94 H Pulse Oximetry 97 97 98 Oxygen Delivery Method Room Air 09/05/22 17:00 09/05/22 17:30 09/05/22 18:00 Temperature Pulse Rate 93 H 93 H 87 Respiratory Rate 30 H 21 19 Blood Pressure Pulse Oximetry 98 97 97 Oxygen Delivery Method 09/05/22 18:30 09/05/22 19:01 09/05/22 19:30 Temperature Pulse Rate 87 86 95 H Respiratory Rate 18 23 21 Blood Pressure Pulse Oximetry 97 97 97 Oxygen Delivery Method <Yvette Garcia, - Last Filed: 09/06/22 03:50> Orders Ordered: Discontinued Medications Diphenhydramine HCl (Diphenhydramine 50 Mg/Ml Vial) 25 mg IV NOW ONE Stop: 09/05/22 15:42 Last Admin: 09/05/22 17:12 Dose: 25 mg Documented By: NR Famotidine (Famotidine 20 Mg/2 Ml Vial) 20 mg IV NOW ONE Stop: 09/05/22 15:43 Last Admin: 09/05/22 17:10 Dose: 20 mg Documented By: NR Sodium Chloride (Normal Saline 0.9%) 1,000 mls @ 1,000 mls/hr IV BOLUS ONE Stop: 09/05/22 16:40 Last Infusion: 09/05/22 18:59 Dose: 0 mls/hr Documented By: Admin: 09/05/22 17:38 Dose: 1,000 mls/hr Documented By: NR Ketorolac Tromethamine (Ketorolac 30 Mg/Ml Vial) 15 mg IV NOW ONE Stop: 09/05/22 19:25 Last Admin: 09/05/22 19:51 Dose: 15 mg Documented By: SIMI Lidocaine HCl (Lidocaine 1% 20 Ml) 20 ml INJ INTRA-OP ONE Stop: 09/05/22 16:14 Last Admin: 09/05/22 16:15 Dose: 0.5 ml Documented By: NR Methylprednisolone (Methylprednisolone 125 Mg/2 Ml Vial) 125 mg IV NOW ONE Stop: 09/05/22 15:42 Last Admin: 09/05/22 17:12 Dose: 125 mg Documented By: NR Ondansetron HCl (Ondansetron 4 Mg/2 Ml Inj) 4 mg IV NOW PRN PRN Reason: Nausea And Vomiting Vital Signs Vital signs: Vital Signs - 8 hr 09/05/22 15:21 09/05/22 16:01 09/05/22 16:30 Temperature 98.2 F Pulse Rate 102 H 99 H 94 H Respiratory Rate 18 23 14 Blood Pressure 180/94 H Pulse Oximetry 97 97 98 Oxygen Delivery Method Room Air 09/05/22 17:00 09/05/22 17:30 09/05/22 18:00 Temperature Pulse Rate 93 H 93 H 87 Respiratory Rate 30 H 21 19 Blood Pressure Pulse Oximetry 98 97 97 Oxygen Delivery Method 09/05/22 18:30 09/05/22 19:01 09/05/22 19:30 Temperature Pulse Rate 87 86 95 H Respiratory Rate 18 23 21 Blood Pressure Pulse Oximetry 97 97 97 Oxygen Delivery Method MDM - Abdominal Pain <Pietro Cavanaugh, - Last Filed: 09/07/22 07:26> Lab Data 09/05/22 16:36 09/05/22 16:36 Labs: Lab Results 09/05/22 09/05/22 09/05/22 Range/Units 16:36 16:36 16:36 WBC 8.7 (4.5-11.0) X10^3/uL RBC 4.17 (4.0-5.2) X10^6/uL Hgb 12.5 (12.0-16.0) g/dL Hct 36.6 (36-46) % MCV 87.8 (80-100) fL MCH 30.0 (26-34) PG MCHC 34.2 (30-36) % RDW 16.3 H (11.6-14.8) % Plt Count 146 L (150-400) X10^3/uL Neut % (Auto) 79.1 H (50-75) % Lymph % (Auto) 13.0 L (25-40) % [place] % (Auto) 6.9 (3-14) % Eos % (Auto) 0.5 L (2-4) % Baso % (Auto) 0.5 (0-2) % Neut # (Auto) 6900 (7375-2747) /uL Lymph # (Auto) 1100 (9706-6787) /uL [place] # (Auto) 600 (0-900) /uL Eos # (Auto) 0 (0-450) /uL Baso # (Auto) 0 (0-100) /uL Sodium 137 (137-145) mmol/L Potassium 3.8 (3.4-5.1) mmol/L Chloride 102 (98-107) mmol/L Carbon Dioxide 28 (22-32) mmol/L BUN 12 (7-17) mg/dL Creatinine 0.51 L (0.52-1.04) mg/dL Estimated GFR > 60 (>60) mL/min BUN/Creatinine Ratio 23.5 H (6-22) Glucose 90 (70-100) mg/dL Lactate 0.7 (0.7-2.1) mmol/L Calcium 8.7 (8.4-10.2) mg/dL Total Bilirubin 0.9 (0.2-1.3) mg/dL AST 33 (14-36) IU/L ALT 46 H (<35) IU/L Alkaline Phosphatase 115 (38-126) U/L Total Protein 7.2 (6.3-8.2) g/dL Albumin 4.1 (3.5-5.0) g/dL Globulin 3.1 (1.7-4.1) g/dL Albumin/Globulin Ratio 1.3 (1.0-2.8) Lipase 25 (23-300) U/L Point of care testing: Urine Dip Bedside Urine Glucose Negative Bedside Urine Bilirubin - Negative Bedside Urine Ketone - Negative Urine Specific [place] 1.005 Bedside Urine Occult Blood - Negative Bedside Urine pH 6.5 Bedside Urine Protein - Negative Bedside Urine Urobilinogen - Negative Bedside Urine Nitrite - Negative Bedside Urine Leukocytes - Negative Esterase MDM Narrative Medical decision making narrative: CC: 47-year-old female with abdominal pain and decreased bowel movements Complicating co-morbidities: Multiple prior surgeries, known colorectal cancer Data collected from: Patient Medical records reviewed: Prior notes reviewed in our EMR Differential considered, but not limited to: Bowel obstruction versus other Exam documented above, pertinent findings include: Tender abdomen with decreased bowel sounds, heart rate regular, lungs clear Lab Test results independently reviewed as above. Pertinent findings: Imaging studies independently reviewed: Consultations: Treatments: Pretreatment for CT with meds noted above Re-evaluations: Discussion: <Yvette Garcia, DO - Last Filed: 09/06/22 03:50> Lab Data Labs: Lab Results 09/05/22 09/05/22 09/05/22 Range/Units 16:36 16:36 16:36 WBC 8.7 (4.5-11.0) X10^3/uL RBC 4.17 (4.0-5.2) X10^6/uL Hgb 12.5 (12.0-16.0) g/dL Hct 36.6 (36-46) % MCV 87.8 (80-100) fL MCH 30.0 (26-34) PG MCHC 34.2 (30-36) % RDW 16.3 H (11.6-14.8) % Plt Count 146 L (150-400) X10^3/uL Neut % (Auto) 79.1 H (50-75) % Lymph % (Auto) 13.0 L (25-40) % [place] % (Auto) 6.9 (3-14) % Eos % (Auto) 0.5 L (2-4) % Baso % (Auto) 0.5 (0-2) % Neut # (Auto) 6900 (3580-6439) /uL Lymph # (Auto) 1100 (7691-5054) /uL [place] # (Auto) 600 (0-900) /uL Eos # (Auto) 0 (0-450) /uL Baso # (Auto) 0 (0-100) /uL Sodium 137 (137-145) mmol/L Potassium 3.8 (3.4-5.1) mmol/L Chloride 102 (98-107) mmol/L Carbon Dioxide 28 (22-32) mmol/L BUN 12 (7-17) mg/dL Creatinine 0.51 L (0.52-1.04) mg/dL Estimated GFR > 60 (>60) mL/min BUN/Creatinine Ratio 23.5 H (6-22) Glucose 90 (70-100) mg/dL Lactate 0.7 (0.7-2.1) mmol/L Calcium 8.7 (8.4-10.2) mg/dL Total Bilirubin 0.9 (0.2-1.3) mg/dL AST 33 (14-36) IU/L ALT 46 H (<35) IU/L Alkaline Phosphatase 115 (38-126) U/L Total Protein 7.2 (6.3-8.2) g/dL Albumin 4.1 (3.5-5.0) g/dL Globulin 3.1 (1.7-4.1) g/dL Albumin/Globulin Ratio 1.3 (1.0-2.8) Lipase 25 (23-300) U/L Point of care testing: Urine Dip Bedside Urine Glucose Negative Bedside Urine Bilirubin - Negative Bedside Urine Ketone - Negative Urine Specific [place] 1.005 Bedside Urine Occult Blood - Negative Bedside Urine pH 6.5 Bedside Urine Protein - Negative Bedside Urine Urobilinogen - Negative Bedside Urine Nitrite - Negative Bedside Urine Leukocytes - Negative Esterase MDM Narrative Medical decision making narrative: CC: 47-year-old female with abdominal pain and decreased bowel movements Complicating co-morbidities: Multiple prior surgeries, known colorectal cancer Data collected from: Patient Medical records reviewed: Prior notes reviewed in our EMR Differential considered, but not limited to: Bowel obstruction versus other Exam documented above, pertinent findings include: Tender abdomen with decreased bowel sounds, heart rate regular, lungs clear Lab Test results independently reviewed as above. Pertinent findings: Imaging studies independently reviewed: Consultations: Treatments: Pretreatment for CT with meds noted above Re-evaluations: Discussion: 09/05/22 Mank: Patient was seen and evaluated by myself. Patient signed out by Dr Cavanaugh. Labs, imaging and workup reviewed. Discussed with patient was waiting for call back from Oncology. Patient feels comfortable with discharge home at this time. No obstructive or perforation process is found on CT. I reviewed her labs and imaging findings with her. She already has not plan to help with constipation as this has been an issue with her chemotherapy in the past. Plan for pain management patient and I discussed options including opioi ds but she prefers to avoid at this time as will likely contributing or constipation issues. We discussed return precautions all questions answered. She states she will be in close contact with her oncology team. Oncology team did call [facility]: Reviewed patient's findings. She will relay that there is some worsening progression of disease, colitis changes no obstruction or perforation. Plan for for supportive care at this time. They will reach out to patient. Discharge Plan Departure Patient Disposition: Home Clinical Impression: Abdominal pain, Constipation, Colorectal cancer Activity Restrictions/Additional Instructions: Please follow-up with your oncology team. Continue with the plan you discussed with your oncology team to help with constipation. You can take Tylenol up to a 1000 mg for pain and/or meloxicam 1 tablet every 12 hours for pain. Meloxicam is in the NSAID category do not take naproxen, Aleve or ibuprofen with this medication. Prescription sent to [facility] in [place]. Please return for fevers, new or worsening abdominal pain, vomiting if you are not having bowel movements or passing gas, black or bloody stools or other new or concerning changes. Prescriptions: New meloxicam 7.5 mg tablet 7.5 mg PO BID PRN (Reason: pain) Qty: 14 0RF No Action fluticasone propionate 50 mcg/actuation spray,suspension 2 spray NASAL DAILY PRN (Reason: Seasonal allergies) Qty: 9.9 0RF amitriptyline 10 mg tablet 10 mg PO BEDTIME Qty: 30 0RF glipizide 10 mg tablet extended release 24hr 10 mg PO DAILY Qty: 90 1RF lisinopril 20 mg tablet 20 mg PO DAILY Qty: 90 1RF amlodipine 10 mg tablet 10 mg PO DAILY Qty: 90 1RF (DME) lancets [Microlet Lancet] Misc See Rx Instructions .ROUTE .MEDSUPPLY Qty: 100 11RF Rx Instructions: use once daily in lancing device to check blood sugar. Dispose after use. (DME) Blood Glucose Test Strip See Rx Instructions .ROUTE .MEDSUPPLY Qty: 50 11RF Rx Instructions: Use to test blood sugar once daily pantoprazole 40 mg tablet,delayed release (DR/EC) 40 mg PO DAILY lidocaine 5 % cream 1 applic topical BID PRN (DME) nebulizer See Rx Instructions .Route .MEDSUPPLY Qty: 1 0RF Rx Instructions: 1 nebulizer albuterol sulfate 2.5 mg/0.5 mL solution for nebulization 5 mg inhalation Q6H PRN (Reason: shortness of breath or wheezing) Qty: 120 0RF albuterol sulfate 2.5 mg /3 mL (0.083 %) solution for nebulization 2.5 mg inhalation Q6H PRN (Reason: shortness of breath or wheezing) Qty: 120 3RF albuterol sulfate 90 mcg/actuation HFA aerosol inhaler See Rx Instructions .ROUTE .COMPLEX Qty: 6.7 0RF Dose Instruction: inhale 1 puff by mouth every four to six hours as needed for shortness of br eath or cough Rx Instructions: inhale 1 puff by mouth every four to six hours as needed for shortness of breath or cough cannabidiol 100 mg/mL solution 10 mg PO DAILY PRN (Reason: Pain) [place] Tail 1 cap PO BID Referrals: Fernanda Esquivel DO [Primary Care Provider] - Stand Alone Forms: Patient Portal/API
--- NOTE | 2022-09-05 16:04 | DI.CT.S_ITS ---
PROCEDURE: CT ABDOMEN PELVIS W CON INDICATIONS: abdominal pain TECHNIQUE: After the administration of intravenous contrast, axial sections acquired from the lung bases to the pubic symphysis. Coronal and sagittal reformats were performed. For radiation dose reduction, the following was used: automated exposure control, adjustment of mA and/or kV according to patient size. COMPARISON: Outside Facility, RG, CT THORAX/ ABD/ PELVIS WITH CONTRAST, 10/11/2021, 15:08. FINDINGS: Image quality: Good Lower chest: Partially seen lung masses, in particular the right middle lobe mass measures up to 1.8 cm, larger than prior, with central cavitation. No pleural effusions. Solid organs: Possible hepatic steatosis. Cholecystectomy clips. Dilated CBD, similar to prior, post cholecystectomy. Splenomegaly again seen measuring up to 16 cm. No adrenal nodules. No hydronephrosis. No pathologic pancreatic ductal dilation. Vessels and lymph nodes: No abdominal aortic aneurysm. The main portal vein is patent. Possible small filling defect along the branch of the left internal iliac vein again seen. Bowel and peritoneum: No evidence of small bowel obstruction. There is a small amount pelvic free fluid as before. Rectosigmoid suture lines. Enlarged nodule adjacent to the left psoas muscle at the left pericolic gutter measuring up to 1.9 cm on axial image 67. Mild fat stranding is seen along the ascending colon. There is mild fecal material in the distal ileum. Body wall: Anterior abdominal wall postsurgical changes and tiny hernia with fluid at the site of prior incision. There is no rim enhancement. A left lower quadrant body wall nodule is larger than prior, with calcifications, measuring up to 2.3 cm on axial image 57. Pelvis: Hysterectomy. Bladder is unremarkable. Bones: No acute or suspicious osseous finding. IMPRESSION: Possible mild ascending infectious or inflammatory colitis. [id number] fecal loading and mild fecal material in the distal ileum, likely due to slow transit time. Small suspected hernia containing fluid in the anterior abdominal wall incision site. No rim enhancement. Worsen burden of malignant disease in the body wall (axial image 57), peritoneum (axial image 67), and lower lungs. Consider occult logic follow-up imaging. Other stable findings as above. Dictated by: Mariusz Miller M.D. on 09/05/2022 at 17:56 Approved by: Mariusz Miller M.D. on 09/05/2022 at 18:05
[2022-09-05] MEDS: LIDOCAINE 1% 20 ML INJ (16:15)
[2022-09-05 17:00] LABS: Add Manual Diff / Slide Review NO; Basophils Absolute Auto 0 /uL (0-100); Basophils Percent Auto 0.5 % (0-2); Eosinophils Absolute Auto 0 /uL (0-450); Eosinophils Percent Auto 0.5 % (2-4); Hematocrit 36.6 % (36-46); Hemoglobin 12.5 g/dL (12.0-16.0); Lymphocytes Absolute Auto 1100 /uL (1100-4500); Mean Corpuscular HGB Conc 34.2 % (30-36); Mean Corpuscular Volume 87.8 fL (80-100); Monocytes Absolute Auto 600 /uL (0-900); Monocytes Percent Auto 6.9 % (3-14); Neutrophils Absolute Auto 6900 /uL (1500-7000); Neutrophils Percent Auto 79.1 % (50-75); Platelet Count 146 X10^3/uL (150-400); Red Blood Cell Count 4.17 X10^6/uL (4.0-5.2); Red Cell Distribution Width 16.3 % (11.6-14.8); White Blood Cell Count 8.7 X10^3/uL (4.5-11.0)
[2022-09-05 17:01] LABS: Lactate (Lactic Acid) 0.7 mmol/L (0.7-2.1)
[2022-09-05 17:02] LABS: Alanine Aminotransferase 46 IU/L (<35); Albumin 4.1 g/dL (3.5-5.0); Albumin Globulin Ratio 1.3 (1.0-2.8); Alkaline Phosphatase 115 U/L (38-126); Aspartate Aminotransferase 33 IU/L (14-36); BUN Creatinine Ratio 23.5 (6-22); Bilirubin Total 0.9 mg/dL (0.2-1.3); Blood Urea Nitrogen 12 mg/dL (7-17); Calcium 8.7 mg/dL (8.4-10.2); Carbon Dioxide 28 mmol/L (22-32); Chloride 102 mmol/L (98-107); Estimated Glomerular Filt Rate > 60 mL/min (>60); Globulin 3.1 g/dL (1.7-4.1); Glucose 90 mg/dL (70-100); HEMOLYSIS 15 (0-50); Lipase 25 U/L (23-300); Potassium 3.8 mmol/L (3.4-5.1); Sodium 137 mmol/L (137-145); Total Protein 7.2 g/dL (6.3-8.2)
[2022-09-05] MEDS: FAMOTIDINE 20 MG/2 ML VIAL IV (17:10)
[2022-09-05] MEDS: methylPREDNISolone 125 MG/2 ML VIAL IV (17:12)
[2022-09-05] MEDS: diphenhydrAMINE 50 MG/ML VIAL 25 MG IV (17:12)
--- NOTE | 2022-09-05 17:17 | PC.NURSE ---
pt medicated after labs resulted but prior to CT scan. spoke with Ct about estimated and time and pt taken to CT 2min after admin of medications
[2022-09-05] MEDS: SODIUM CHLORIDE 0.9% 1,000 ML 1000 ML IV (17:38)
[2022-09-05] MEDS: KETOROLAC 30 MG/ML VIAL 15 MG IV (19:51)
== END 2022-09-05 19:45 | disposition home or self-care (01) ==
PROVIDERS: Emergency Medicine; Emergency Provider Emergency Medicine; Family Provider Family Medicine; PCP Family Medicine
DX: R10.9 Unspecified abdominal pain (principal); K59.00 Constipation, unspecified; C19 Malignant neoplasm of rectosigmoid junction
CPT/HCPCS: 36415; 74177; 80053; 81003; 83605; 83690; 85025; 96361; 96374; 96375; 99284; J1200; J1885; J2930; Q9967

== ENCOUNTER → 2022-12-10 12:18 | Outpatient (CLI) | payer MEDICARE, MEDICAID, SELFPAY ==
[2020-01-06 11:22] VITALS: BMI 35.7
[2022-12-10 12:46] LABS: Hemoglobin A1C% w Est Avg Glu 5.4 % (4.0-6.0)
[2022-12-10 13:05] LABS: BUN Creatinine Ratio 21.4 (6-22); Blood Urea Nitrogen 12 mg/dL (7-17); Calcium 9.1 mg/dL (8.4-10.2); Carbon Dioxide 25 mmol/L (22-32); Chloride 108 mmol/L (98-107); Estimated Glomerular Filt Rate > 60 mL/min (>60); Glucose 125 mg/dL (70-100); HEMOLYSIS < 15 (0-50); Potassium 3.5 mmol/L (3.4-5.1); Sodium 142 mmol/L (137-145)
== END ==
PROVIDERS: Family Provider Family Medicine; PCP Family Medicine; Referring Provider Family Medicine; Visit Provider Family Medicine
DX: E11.9 Type 2 diabetes mellitus without complications (principal); I10 Essential (primary) hypertension
CPT/HCPCS: 80048; 83036

== ENCOUNTER 2024-11-05 09:45 | Emergency (ER) | payer MEDICARE, SELFPAY ==
[2023-07-14 14:45] VITALS: BMI 35.7
[2024-11-05] VITALS (20 sets, daily range): BP systolic 187–216; BP diastolic 103–116; PULSE 82–110; RESP 15–26; TEMP 36.4; O2SAT 95–99; BMI 26.1
--- NOTE | 2024-11-05 10:56 | EKG_ITS ---
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
[2024-11-05 11:16] LABS: Add Manual Diff / Slide Review NO; Hematocrit 26.7 % (36-46); Hemoglobin 8.0 g/dL (12.0-16.0); Lymphocytes Absolute Auto 400 /uL (1100-4500); Mean Corpuscular HGB Conc 29.8 % (30-36); Mean Corpuscular Hemoglobin 18.2 PG (26-34); Mean Corpuscular Volume 61.2 fL (80-100); Platelet Count 321 X10^3/uL (150-400)
[2024-11-05 11:24] LABS: Alanine Aminotransferase 12 IU/L (<35); Albumin 4.4 g/dL (3.5-5.0); Albumin Globulin Ratio 1.2 (1.0-2.8); Alkaline Phosphatase 147 U/L (38-126); Blood Urea Nitrogen 28 mg/dL (7-17); Calcium 9.4 mg/dL (8.4-10.2); Carbon Dioxide 28 mmol/L (22-32); Chloride 96 mmol/L (98-107); Estimated Glomerular Filt Rate > 60 mL/min (>60); Globulin 3.6 g/dL (1.7-4.1); Glucose 159 mg/dL (70-99); HEMOLYSIS < 15 (0-50); Lipase 10 U/L (23-300); Potassium 3.3 mmol/L (3.4-5.1); Sodium 134 mmol/L (137-145); Total Protein 8.0 g/dL (6.3-8.2)
[2024-11-05 12:34] LABS: Anisocytosis 2+; Hypochromasia 2+; Microcytosis 2+; Ovalocytes 1+; Poikilocytosis 1+
--- NOTE | 2024-11-05 14:12 | DI.CT.S_ITS ---
PROCEDURE: CT ABDOMEN PELVIS W CON INDICATIONS: abd pain n/v TECHNIQUE: After the administration of intravenous contrast, axial sections acquired from the lung bases to the pubic symphysis. Coronal and sagittal reformats were performed. For radiation dose reduction, the following was used: automated exposure control, adjustment of mA and/or kV according to patient size. COMPARISON: [facility], CT, CT ABDOMEN PELVIS W CON, 09/05/2022, 17:12. FINDINGS: Image quality: Diagnostic. Lower Chest: New and growing pulmonary metastases compared with 09/05/2022. ABDOMEN: Liver: Multiple liver masses, new since 2022. Approximately 5, largest measures 9.8 cm at the dome. Gallbladder: Absent. Biliary ducts: No intrahepatic or extrahepatic biliary dilation, accounting for a post cholecystectomy state. Pancreas: No ductal dilation. Spleen: Size is within normal limits. Adrenal Glands: No adrenal nodules. Kidneys and Ureters: Severe left-sided hydronephrosis and delayed left-sided nephrogram. The distal left ureter is obstructed by a presacral mass in the deep pelvis (series 2, image 118). Stomach and Bowel: Large bowel obstruction, caused by a 3.8 cm length luminal mass within the proximal sigmoid colon (series 3, image 46). Partial colectomy is proximal to this region. There is soft tissue extending from the surgical anastomosis into the vaginal cuff (series 3, image 60). Peritoneum: No abnormal intraperitoneal fluid. No free air. Ventral Wall: Left lower quadrant abdominal wall mass measuring 3.0 x 5.9 cm (series 2, image 97). Abdominal Nodes: No retroperitoneal or mesenteric adenopathy by size criteria. Vessels: Aorta and inferior vena cava are normal in size. PELVIS: Pelvic Organs: Unremarkable. Bladder: No bladder wall thickening, accounting for underdistention. Pelvic Nodes: Pelvic adenopathy, extensive . For instance, the 4.1 x 4.7 cm left external iliac chain node (series 2, image 118). And the 2.4 x 2.8 cm right internal iliac node which obstructs the distal left ureter. Miscellaneous: No inguinal hernias are seen. Bones: Destructive bony lesion of the left iliac wing measuring 3.7 x 4.8 cm. Additional right lateral rib lesion present. IMPRESSION: Obstructing mass adjacent to the surgical anastomosis, presumably a recurrence. This results in a 3.8 cm segment of severe luminal narrowing of the large bowel in the sigmoid colon, resulting in obstruction of the large bowel. Extensive pelvic adenopathy, with obstruction of the distal left ureter. This results in severe left-sided hydronephrosis and hydroureter. Consider percutaneous nephrostomy tube on the left to maintain left renal function. 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 New and growing pulmonary metastases. New liver metastases. Left lower quadrant soft tissue mass and new bony metastases. Findings discussed with ordering provider at time of dictation. Dictated by: Zachariah Smith M.D. on 11/05/2024 at 16:29 Approved by: Zachariah Smith M.D. on 11/05/2024 at 16:38
[2024-11-05] MEDS: HYDROMORPHONE 1 MG INJ IV ×3 (14:34→20:30)
--- NOTE | 2024-11-05 14:41 | PC.NURSE ---
iv placed by another nurse
--- NOTE | 2024-11-05 14:43 | ED.ABDPAIN ---
HPI - Abdominal Pain <Kwadwo Barrera, DO - Last Filed: 11/06/24 11:19> General Chief Complaint: Abdominal Pain Stated Complaint: Nausea and vomitting, abd pain, meds not helping Time Seen by Provider: 11/05/24 09:50 History of Present Illness HPI narrative: 49-year-old female history of colorectal cancer stage IV that is no longer on chemotherapy presents with nausea vomiting and diffuse abdominal pain since Friday this week that is progressed and gotten worse today. She denies back pain, hematuria, fever, chills, body aches, cough, sore throat, chest pain. Other than what is stated 14 point review of system is negative. Related Data Home Medications ?Medication ?Instructions ?Recorded ?Confirmed cannabidiol 100 mg/mL oral solution 10 mg PO DAILY PRN Pain 11/19/18 08/11/23 pantoprazole 40 mg tablet,delayed 40 mg PO DAILY 12/20/21 08/11/23 release diphenhydramine HCl 25 mg tablet mg PO 12/10/22 08/11/23 (Allergy Relief (diphenhydramine)) ondansetron HCl 8 mg tablet 8 mg PO 3XD 12/10/22 08/11/23 oxycodone 5 mg tablet 5 mg PO Q8H PRN 12/10/22 08/11/23 prednisone 50 mg tablet mg PO 12/10/22 08/11/23 tramadol 50 mg tablet 50 mg PO Q4H PRN 12/10/22 08/11/23 lisinopril 20 mg tablet 40 mg PO DAILY 01/13/23 08/11/23 amitriptyline 10 mg tablet 10 mg PO ONCE PM 07/14/23 08/11/23 Previous Rx's ?Medication ?Instructions ?Recorded blood sugar diagnostic (Blood #50 ea 05/12/20 Glucose Test strips) lancets (Microlet Lancet) #100 ea 05/12/20 fluticasone propionate 50 2 spray intranasal DAILY PRN 08/25/20 mcg/actuation nasal Seasonal allergies #9.9 mL spray,suspension albuterol sulfate 2.5 mg/0.5 mL 5 mg inhalation Q6H PRN shortness 01/25/21 solution for nebulization of breath or wheezing #120 ea albuterol sulfate 2.5 mg/3 mL 2.5 mg (3 mL) inhalation Q6H PRN 01/25/21 (0.083 %) solution for nebulization shortness of breath or wheezing #120 mL nebulizer #1 ea 01/25/21 albuterol sulfate 90 mcg/actuation See Rx Instructions .Route 03/18/22 aerosol inhaler .COMPLEX #6.7 grams amlodipine 10 mg tablet 10 mg PO DAILY #90 tabs 07/30/22 nivolumab 240 [id number] 40 ml IV Q28D 01/13/23 80 mg/20 mL intravenous solution chlorthalidone 25 mg tablet 25 mg PO DAILY blood pressure #90 10/15/23 tabs Allergies Allergy/AdvReac Type Severity Reaction Status Date / Time aspirin AdvReac Severe Nausea Verified 11/05/24 10:44 Iv contrast Allergy Severe rash Uncoded 11/05/24 10:47 Review of Systems <Kwadwo Barrera DO - Last Filed: 11/06/24 11:19> Review of Systems ROS Unobtainable: All systems reviewed & are unremarkable except as noted in HPI and below Patient History <Kwadwo Barrera DO - Last Filed: 11/06/24 11:19> Medical History (Updated 11/05/24 @ 22:59 by Jerry See MD) ADHD Benign essential HTN Fatty liver Type 2 diabetes mellitus Secondary hypertension Asthma Lipoma of neck (2019) H/O colon cancer, stage I Anxiety and depression Easy bruisability Arthritis Hypoglycemia Bronchitis History of eustachian tube dysfunction Numbness Migraines Vaginal delivery HPV (human papilloma virus) infection (10/27/14) Abnormal Pap smear of cervix (10/27/14) Surgical History S/P laparoscopic hysterectomy (09/04/20) S/P exploratory laparotomy Hx of laparoscopy (01/06/20) Hx of cholecystectomy (~08/1998) History of conization of cervix (08/2019) Status post LEEP (loop electrosurgical excision procedure) of cervix Status post colon resection (03/2018) Hx of tonsillectomy Status post laparoscopic cholecystectomy History of third molar tooth extraction Family History Grandmother Ovarian cancer Heart disease Grandfather Diabetes mellitus Grandmother Breast cancer Social History number of children: 4 household members: children and other occupational status: employed Smoking Status: Never smoker alcohol intake: current substance use type: does not use and other eating out: 1-3 times/week Smoking Status: Never smoker alcohol intake frequency: holidays/special occasions only Exam <Kwadwo Barrera DO - Last Filed: 11/06/24 11:19> Narrative Exam Narrative: GENERAL: [49] year old patient appears stated age. Well-developed patient, in mild distress. HEAD: Atraumatic. Normocephalic. EYES: Pupils equal round and reactive. Extraocular motions intact. No scleral icterus. No injection or drainage. ENT: Nose without bleeding, purulent drainage. Throat without erythema, tonsillar hypertrophy or exudate. Airway patent. NECK: Trachea midline. Non tender CARDIOVASCULAR: Regular rate and rhythm without murmurs, gallops, or rubs. RESPIRATORY: Clear to auscultation. Breath sounds equal bilaterally. No wheezes, rales, or rhonchi. GASTROINTESTINAL: Abdomen firm but mild diffuse tenderness but no rebound rigidity guarding, nondistended. EXTREMITIES: No edema or joint tenderness. BACK: Nontender without deformity or crepitance. No flank tenderness. NEURO: AOx3. SKIN: No rash or erythema of visible areas Initial Vital Signs Initial Vital Signs: Vital Signs Temperature 97.5 F L 11/05/24 10:44 Pulse Rate 105 H 11/05/24 10:44 Respiratory Rate 17 11/05/24 10:44 Blood Pressure 187/109 H 11/05/24 10:44 Pulse Oximetry 99 11/05/24 10:44 Oxygen Delivery Method Room Air 11/05/24 10:44 <Jerry See MD - Last Filed: 11/06/24 01:38> Initial Vital Signs Initial Vital Signs: Vital Signs Temperature 97.5 F L 11/05/24 10:44 Pulse Rate 105 H 11/05/24 10:44 Respiratory Rate 17 11/05/24 10:44 Blood Pressure 187/109 H 11/05/24 10:44 Pulse Oximetry 99 11/05/24 10:44 Oxygen Delivery Method Room Air 11/05/24 10:44 Course <Kwadwo Barrera DO - Last Filed: 11/06/24 11:19> Orders Ordered: Discontinued Medications Diphenhydramine HCl (Diphenhydramine 50 Mg/Ml Vial) 50 mg IV NOW ONE Stop: 11/05/24 15:00 Last Admin: 11/05/24 15:09 Dose: 50 mg Documented By: YAMILEX Famotidine (Famotidine 20 Mg/2 Ml Vial) 20 mg IV NOW JUANJOSE Last Admin: 11/05/24 18:27 Dose: 20 mg Documented By: JAMIE Famotidine (Famotidine 20 Mg/2 Ml Vial) 20 mg IV NOW ONE Stop: 11/05/24 15:08 Last Admin: 11/05/24 15:08 Dose: 20 mg Documented By: YAMILEX Hydromorphone HCl (Hydromorphone 1 Mg Inj) 1 mg IV NOW ONE Stop: 11/05/24 14:14 Last Admin: 11/05/24 14:34 Dose: 1 mg Documented By: YAMILEX Hydromorphone HCl (Hydromorphone 1 Mg Inj) 1 mg IV NOW ONE Stop: 11/05/24 16:44 Last Admin: 11/05/24 16:50 Dose: 1 mg Documented By: YAMILEX Hydromorphone HCl (Hydromorphone 1 Mg Inj) 1 mg IV NOW ONE Stop: 11/05/24 20:27 Last Admin: 11/05/24 20:30 Dose: 1 mg Documented By: YAMILEX Lactated Ringer's (Lactated Ringers) 1,000 mls @ 1,000 mls/hr IV BOLUS ONE Stop: 11/05/24 15:44 Last Infusion: 11/05/24 16:46 Dose: Infused Documented By: Admin: 11/05/24 15:09 Dose: 1,000 mls/hr Documented By: YMAILEX Lactated Ringer's (Lactated Ringers) 1,000 mls @ 1,000 mls/hr IV BOLUS ONE Stop: 11/05/24 17:41 Last Infusion: 11/05/24 20:07 Dose: Infused Documented By: Admin: 11/05/24 16:50 Dose: 1,000 mls/hr Documented By: YAMILEX Labetalol HCl (Labetalol 20 Mg/4 Ml Syringe) 10 mg IV NOW ONE Stop: 11/05/24 21:42 Last Admin: 11/05/24 21:49 Dose: 10 mg Documented By: YAMILEX Methylprednisolone (Methylprednisolone 125 Mg/2 Ml Vial) 125 mg IV NOW ONE Stop: 11/05/24 15:00 Last Admin: 11/05/24 15:09 Dose: 125 mg Documented By: YAMILEX Ondansetron HCl (Ondansetron 4 Mg/2 Ml Inj) 4 mg IV NOW PRN PRN Reason: Nausea And Vomiting Ondansetron HCl (Ondansetron 4 Mg Odt) 4 mg PO NOW PRN PRN Reason: Nausea And Vomiting Vital Signs Vital signs: Vital Signs - 8 hr 11/05/24 18:00 11/05/24 18:00 11/05/24 18:30 Pulse Rate 93 H 94 H Respiratory Rate 15 23 Blood Pressure 201/112 H Pulse Oximetry 96 96 11/05/24 18:30 11/05/24 19:05 11/05/24 19:07 Pulse Rate 82 Respiratory Rate Blood Pressure 200/115 H 216/113 H Pulse Oximetry 97 11/05/24 19:07 11/05/24 19:30 11/05/24 19:30 Pulse Rate 102 H 93 H Respiratory Rate 18 20 Blood Pressure 199/105 H Pulse Oximetry 97 98 11/05/24 20:00 11/05/24 20:30 11/05/24 20:30 Pulse Rate 97 H 93 H Respiratory Rate 24 17 Blood Pressure 195/108 H Pulse Oximetry 97 96 11/05/24 21:01 11/05/24 21:30 11/05/24 21:49 Pulse Rate 110 H 94 H 96 H Respiratory Rate 26 H 15 Blood Pressure 195/108 H Pulse Oximetry 96 11/05/24 21:51 11/05/24 21:51 11/05/24 22:00 Pulse Rate 97 H 84 Respiratory Rate 17 16 Blood Pressure 208/108 H Pulse Oximetry 96 95 11/05/24 22:00 11/05/24 22:05 11/05/24 22:05 Pulse Rate 85 Respiratory Rate 15 Blood Pressure 208/116 H 198/108 H Pulse Oximetry 95 <Jerry See MD - Last Filed: 11/06/24 01:38> Course Course Narrative: 18:00 Patient care transferred to nm at the change of shift by Dr. Barrera, with general surgery consultation pending to decide on her disposition. Patient is here with stage IV colon cancer with metastases in several areas. She presents with vomiting and abdominal pain and CT scan reveals a large bowel obstruction among other problems. 19:55 I discussed patient's care with Dr. Butt, general surgery here who feels the patient is much too complex for our facility given her multiple problems including large bowel obstruction from new colonic mass. Colovaginal fistula and left ureteral obstruction among other problems. We will consult with [facility] for transfer 20:20 I discussed the patient's care with Jaclyn transfer nurse at the [facility] regarding transferring this patient. CT scan has been pushed. 21;40 I discussed the patient's care with Dr. Box, medical oncology at the [facility] who accepts the transfer. They will call back when they are able to arrange a bed which may be later this evening or possibly in the morning. He also asked that we address her hypertension so that she is a candidate for a regular floor bed which require systolic pressures below 180. Orders Ordered: Discontinued Medications Diphenhydramine HCl (Diphenhydramine 50 Mg/Ml Vial) 50 mg IV NOW ONE Stop: 11/05/24 15:00 Last Admin: 11/05/24 15:09 Dose: 50 mg Documented By: YAMILEX Famotidine (Famotidine 20 Mg/2 Ml Vial) 20 mg IV NOW JUANJOSE Last Admin: 11/05/24 18:27 Dose: 20 mg Documented By: JAMIE Famotidine (Famotidine 20 Mg/2 Ml Vial) 20 mg IV NOW ONE Stop: 11/05/24 15:08 Last Admin: 11/05/24 15:08 Dose: 20 mg Documented By: YAMILEX Hydromorphone HCl (Hydromorphone 1 Mg Inj) 1 mg IV NOW ONE Stop: 11/05/24 14:14 Last Admin: 11/05/24 14:34 Dose: 1 mg Documented By: YAMILEX Hydromorphone HCl (Hydromorphone 1 Mg Inj) 1 mg IV NOW ONE Stop: 11/05/24 16:44 Last Admin: 11/05/24 16:50 Dose: 1 mg Documented By: YAMILEX Hydromorphone HCl (Hydromorphone 1 Mg Inj) 1 mg IV NOW ONE Stop: 11/05/24 20:27 Last Admin: 11/05/24 20:30 Dose: 1 mg Documented By: YAMILEX Lactated Ringer's (Lactated Ringers) 1,000 mls @ 1,000 mls/hr IV BOLUS ONE Stop: 11/05/24 15:44 Last Infusion: 11/05/24 16:46 Dose: Infused Documented By: Admin: 11/05/24 15:09 Dose: 1,000 mls/hr Documented By: YAMILEX Lactated Ringer's (Lactated Ringers) 1,000 mls @ 1,000 mls/hr IV BOLUS ONE Stop: 11/05/24 17:41 Last Infusion: 11/05/24 20:07 Dose: Infused Documented By: Admin: 11/05/24 16:50 Dose: 1,000 mls/hr Documented By: YAMILEX Labetalol HCl (Labetalol 20 Mg/4 Ml Syringe) 10 mg IV NOW ONE Stop: 11/05/24 21:42 Last Admin: 11/05/24 21:49 Dose: 10 mg Documented By: YAMILEX Methylprednisolone (Methylprednisolone 125 Mg/2 Ml Vial) 125 mg IV NOW ONE Stop: 11/05/24 15:00 Last Admin: 11/05/24 15:09 Dose: 125 mg Documented By: YAMILEX Ondansetron HCl (Ondansetron 4 Mg/2 Ml Inj) 4 mg IV NOW PRN PRN Reason: Nausea And Vomiting Ondansetron HCl (Ondansetron 4 Mg Odt) 4 mg PO NOW PRN PRN Reason: Nausea And Vomiting Vital Signs Vital signs: Vital Signs - 8 hr 11/05/24 18:00 11/05/24 18:00 11/05/24 18:30 Pulse Rate 93 H 94 H Respiratory Rate 15 23 Blood Pressure 201/112 H Pulse Oximetry 96 96 11/05/24 18:30 11/05/24 19:05 11/05/24 19:07 Pulse Rate 82 Respiratory Rate Blood Pressure 200/115 H 216/113 H Pulse Oximetry 97 11/05/24 19:07 11/05/24 19:30 11/05/24 19:30 Pulse Rate 102 H 93 H Respiratory Rate 18 20 Blood Pressure 199/105 H Pulse Oximetry 97 98 11/05/24 20:00 11/05/24 20:30 11/05/24 20:30 Pulse Rate 97 H 93 H Respiratory Rate 24 17 Blood Pressure 195/108 H Pulse Oximetry 97 96 11/05/24 21:01 11/05/24 21:30 11/05/24 21:49 Pulse Rate 110 H 94 H 96 H Respiratory Rate 26 H 15 Blood Pressure 195/108 H Pulse Oximetry 96 11/05/24 21:51 11/05/24 21:51 11/05/24 22:00 Pulse Rate 97 H 84 Respiratory Rate 17 16 Blood Pressure 208/108 H Pulse Oximetry 96 95 11/05/24 22:00 11/05/24 22:05 11/05/24 22:05 Pulse Rate 85 Respiratory Rate 15 Blood Pressure 208/116 H 198/108 H Pulse Oximetry 95 MDM - Abdominal Pain <Kwadwo Barrera, DO - Last Filed: 11/06/24 11:19> Lab Data 11/05/24 11:04 11/05/24 11:04 Labs: Lab Results 11/05/24 Range/Units 11:04 WBC 11.2 H (4.5-11.0) X10^3/uL RBC 4.36 (4.0-5.2) X10^6/uL Hgb 8.0 L (12.0-16.0) g/dL Hct 26.7 L (36-46) % MCV 61.2 L (80-100) fL MCH 18.2 L (26-34) PG MCHC 29.8 L (30-36) % RDW 21.8 H (11.6-14.8) % Plt Count 321 (150-400) X10^3/uL Neut % (Auto) 91.3 H (50-75) % Lymph % (Auto) 3.5 L (25-40) % [place] % (Auto) 5.0 (3-14) % Eos % (Auto) 0.0 L (2-4) % Baso % (Auto) 0.2 (0-2) % Neut # (Auto) 23527 H (0671-1029) /uL Lymph # (Auto) 400 L (1598-5292) /uL [place] # (Auto) 600 (0-900) /uL Eos # (Auto) 0 (0-450) /uL Baso # (Auto) 0 (0-100) /uL Platelet Estimate Adequate on smear Plt Morphology Comment RBC Morphology See below Hypochromasia 2+ H Poikilocytosis 1+ H Anisocytosis 2+ H Microcytosis 2+ H Ovalocytes 1+ H Sodium 134 L (137-145) mmol/L Potassium 3.3 L (3.4-5.1) mmol/L Chloride 96 L (98-107) mmol/L Carbon Dioxide 28 (22-32) mmol/L BUN 28 H (7-17) mg/dL Creatinine 0.69 (0.52-1.04) mg/dL Estimated GFR > 60 (>60) mL/min BUN/Creatinine Ratio 40.6 H (6-22) Glucose 159 H (70-99) mg/dL Calcium 9.4 (8.4-10.2) mg/dL Total Bilirubin 1.1 (0.2-1.3) mg/dL AST 29 (14-36) IU/L ALT 12 (<35) IU/L Alkaline Phosphatase 147 H (38-126) U/L Total Protein 8.0 (6.3-8.2) g/dL Albumin 4.4 (3.5-5.0) g/dL Globulin 3.6 (1.7-4.1) g/dL Albumin/Globulin Ratio 1.2 (1.0-2.8) Lipase 10 L (23-300) U/L Point of care testing: Urine Dip Bedside Urine Glucose Negative Bedside Urine Bilirubin - Negative Bedside Urine Ketone - Negative Urine Specific [place] 1.010 Bedside Urine Occult Blood + Bedside Urine pH 6.0 Bedside Urine Protein - Negative Bedside Urine Urobilinogen +/- 1mg Bedside Urine Nitrite - Negative Bedside Urine Leukocytes - Negative Esterase Imaging Data CT scan - abdomen/pelvis: Radiologist's Impression: [place] [address] CT Scan Report Signed Patient: Aydee Roldan MR#: [id number] : 1975 Acct:[id number] Age/Sex: 49 / F Date of Service: 11/05/24 Loc: ED Accession Number: [id number] Procedure: CT abdomen pelvis w con Ordering Provider: Kwadwo Barrera D.O. PROCEDURE: CT ABDOMEN PELVIS W CON INDICATIONS: abd pain n/v TECHNIQUE: After the administration of intravenous contrast, axial sections acquired from the lung bases to the pubic symphysis. Coronal and sagittal reformats were performed. For radiation dose reduction, the following was used: automated exposure control, adjustment of mA and/or kV according to patient size. COMPARISON: [facility], CT, CT ABDOMEN PELVIS W CON, 09/05/2022, 17:12. FINDINGS: Image quality: Diagnostic. Lower Chest: New and growing pulmonary metastases compared with 09/05/2022. ABDOMEN: Liver: Multiple liver masses, new since 2022. Approximately 5, largest measures 9.8 cm at the dome. Gallbladder: Absent. Biliary ducts: No intrahepatic or extrahepatic biliary dilation, accounting for a post cholecystectomy state. Pancreas: No ductal dilation. Spleen: Size is within normal limits. Adrenal Glands: No adrenal nodules. Kidneys and Ureters: Severe left-sided hydronephrosis and delayed left-sided nephrogram. The distal left ureter is obstructed by a presacral mass in the deep pelvis (series 2, image 118). Stomach and Bowel: Large bowel obstruction, caused by a 3.8 cm length luminal mass within the proximal sigmoid colon (series 3, image 46). Partial colectomy is proximal to this region. There is soft tissue extending from the surgical anastomosis into the vaginal cuff (series 3, image 60). Peritoneum: No abnormal intraperitoneal fluid. No free air. Ventral Wall: Left lower quadrant abdominal wall mass measuring 3.0 x 5.9 cm (series 2, image 97). Abdominal Nodes: No retroperitoneal or mesenteric adenopathy by size criteria. Vessels: Aorta and inferior vena cava are normal in size. PELVIS: Pelvic Organs: Unremarkable. Bladder: No bladder wall thickening, accounting for underdistention. Pelvic Nodes: Pelvic adenopathy, extensive . For instance, the 4.1 x 4.7 cm left external iliac chain node (series 2, image 118). And the 2.4 x 2.8 cm right internal iliac node which obstructs the distal left ureter. Miscellaneous: No inguinal hernias are seen. Bones: Destructive bony lesion of the left iliac wing measuring 3.7 x 4.8 cm. Additional right lateral rib lesion present. IMPRESSION: Obstructing mass adjacent to the surgical anastomosis, presumably a recurrence. This results in a 3.8 cm segment of severe luminal narrowing of the large bowel in the sigmoid colon, resulting in obstruction of the large bowel. Extensive pelvic adenopathy, with obstruction of the distal left ureter. This results in severe left-sided hydronephrosis and hydroureter. Consider percutaneous nephrostomy tube on the left to maintain left renal function. 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 New and growing pulmonary metastases. New liver metastases. Left lower quadrant soft tissue mass and new bony metastases. Findings discussed with ordering provider at time of dictation. Dictated by: Zachariah Smith M.D. on 11/05/2024 at 16:29 Approved by: Zachariah Smith M.D. on 11/05/2024 at 16:38 MDM Narrative Medical decision making narrative: All lab work, vital signs, nurse triage note, medication list, previous ER visits, and all imaging studies reviewed. CT abdomen and pelvis obstructing mass adjacent to the surgical anastomosis presumably a recurrence. This result in a 3.8 cm segment of severe luminal narrowing of the large bowel in the sigmoid colon resulting in obstruction of the large bowel. Extensive pelvic adenopathy with obstructing of the distal left ureter. This results in severe left-sided hydronephrosis and hydroureter. There is a fistula from the surgical anastomosis to the vagina with presumed stool within the vaginal vault. New and groin pulmonary metastasis. New liver Mets. Left lower quadrant soft tissue mass and new bony Mets. Patient signed out to Dr. Dunn at shift change pending final disposition with surgery consult pending. <Jerry See MD - Last Filed: 11/06/24 01:38> Lab Data Labs: Lab Results 11/05/24 Range/Units 11:04 WBC 11.2 H (4.5-11.0) X10^3/uL RBC 4.36 (4.0-5.2) X10^6/uL Hgb 8.0 L (12.0-16.0) g/dL Hct 26.7 L (36-46) % MCV 61.2 L (80-100) fL MCH 18.2 L (26-34) PG MCHC 29.8 L (30-36) % RDW 21.8 H (11.6-14.8) % Plt Count 321 (150-400) X10^3/uL Neut % (Auto) 91.3 H (50-75) % Lymph % (Auto) 3.5 L (25-40) % [place] % (Auto) 5.0 (3-14) % Eos % (Auto) 0.0 L (2-4) % Baso % (Auto) 0.2 (0-2) % Neut # (Auto) 41314 H (8785-2853) /uL Lymph # (Auto) 400 L (9375-8160) /uL [place] # (Auto) 600 (0-900) /uL Eos # (Auto) 0 (0-450) /uL Baso # (Auto) 0 (0-100) /uL Platelet Estimate Adequate on smear Plt Morphology Comment RBC Morphology See below Hypochromasia 2+ H Poikilocytosis 1+ H Anisocytosis 2+ H Microcytosis 2+ H Ovalocytes 1+ H Sodium 134 L (137-145) mmol/L Potassium 3.3 L (3.4-5.1) mmol/L Chloride 96 L (98-107) mmol/L Carbon Dioxide 28 (22-32) mmol/L BUN 28 H (7-17) mg/dL Creatinine 0.69 (0.52-1.04) mg/dL Estimated GFR > 60 (>60) mL/min BUN/Creatinine Ratio 40.6 H (6-22) Glucose 159 H (70-99) mg/dL Calcium 9.4 (8.4-10.2) mg/dL Total Bilirubin 1.1 (0.2-1.3) mg/dL AST 29 (14-36) IU/L ALT 12 (<35) IU/L Alkaline Phosphatase 147 H (38-126) U/L Total Protein 8.0 (6.3-8.2) g/dL Albumin 4.4 (3.5-5.0) g/dL Globulin 3.6 (1.7-4.1) g/dL Albumin/Globulin Ratio 1.2 (1.0-2.8) Lipase 10 L (23-300) U/L Point of care testing: Urine Dip Bedside Urine Glucose Negative Bedside Urine Bilirubin - Negative Bedside Urine Ketone - Negative Urine Specific [place] 1.010 Bedside Urine Occult Blood + Bedside Urine pH 6.0 Bedside Urine Protein - Negative Bedside Urine Urobilinogen +/- 1mg Bedside Urine Nitrite - Negative Bedside Urine Leukocytes - Negative Esterase MDM Narrative Medical decision making narrative: All lab work, vital signs, nurse triage note, medication list, previous ER visits, and all imaging studies reviewed. CT abdomen and pelvis obstructing mass adjacent to the surgical anastomosis presumably a recurrence. This result in a 3.8 cm segment of severe luminal narrowing of the large bowel in the sigmoid colon resulting in obstruction of the large bowel. Extensive pelvic adenopathy with obstructing of the distal left ureter. This results in severe left-sided hydronephrosis and hydroureter. There is a fistula from the surgical anastomosis to the vagina with presumed stool within the vaginal vault. New and groin pulmonary metastasis. New liver Mets. Left lower quadrant soft tissue mass and new bony Mets. Patient signed out to Dr. See at shift change pending final disposition with surgery consult pending. Surgery consult performed by Dr. Munguia. All of the blood problems noted. He feels the patient is too complex for our facility and recommends transfer to [facility], namely [facility] where she gets her oncology care. I discussed the patient's care with the medical oncologist at [facility], Dr. Box who accepts the transfer. Patient has been stable in the ER in terms of heart rate and blood pressure. Pain controlled. She has a large bowel/sigmoid obstruction due to tumor burden and also a colo vaginal fistula at that point. Also has left ureteral obstruction and new discovery of metastases to the liver, bones and lungs. She will be transferred to the [facility] under the care of Medical Oncology. Discharge Plan Departure Patient Disposition: [facility] Clinical Impression: Large bowel obstruction, Colovaginal fistula, Obstruction of left ureter, Colon cancer metastasized to multiple sites Prescriptions: No Action fluticasone propionate 50 mcg/actuation spray,suspension 2 spray NASAL DAILY PRN (Reason: Seasonal allergies) Qty: 9.9 0RF amlodipine 10 mg tablet 10 mg PO DAILY Qty: 90 1RF (DME) lancets [Microlet Lancet] Misc See Rx Instructions .ROUTE .MEDSUPPLY Qty: 100 11RF Rx Instructions: use once daily in lancing device to check blood sugar. Dispose after use. (DME) Blood Glucose Test Strip See Rx Instructions .ROUTE .MEDSUPPLY Qty: 50 11RF Rx Instructions: Use to test blood sugar once daily pantoprazole 40 mg tablet,delayed release (DR/EC) 40 mg PO DAILY (DME) nebulizer See Rx Instructions .Route .MEDSUPPLY Qty: 1 0RF Rx Instructions: 1 nebulizer albuterol sulfate 2.5 mg/0.5 mL solution for nebulization 5 mg inhalation Q6H PRN (Reason: shortness of breath or wheezing) Qty: 120 0RF albuterol sulfate 2.5 mg /3 mL (0.083 %) solution for nebulization 2.5 mg inhalation Q6H PRN (Reason: shortness of breath or wheezing) Qty: 120 3RF albuterol sulfate 90 mcg/actuation HFA aerosol inhaler See Rx Instructions .ROUTE .COMPLEX Qty: 6.7 0RF Dose Instruction: inhale 1 puff by mouth every four to six hours as needed for shortness of breath or cough Rx Instructions: inhale 1 puff by mouth every four to six hours as needed for shortness of breath or cough chlorthalidone 25 mg tablet 25 mg PO DAILY Qty: 90 3RF cannabidiol 100 mg/mL solution 10 mg PO DAILY PRN (Reason: Pain) tramadol 50 mg tablet 50 mg PO Q4H PRN ondansetron HCl 8 mg tablet 8 mg PO 3XD oxycodone 5 mg tablet 5 mg PO Q8H PRN diphenhydramine HCl [Allergy Relief(diphenhydramin)] 25 mg tablet PO prednisone 50 mg tablet PO lisinopril 20 mg tablet 40 mg PO DAILY [id number] 240-80 mg/20 mL solution 40 ml IV Q28D amitriptyline 10 mg tablet 10 mg PO ONCE PM Referrals: Mehnaz Mac DO [Primary Care Provider, Family Practice]
[2024-11-05] MEDS: FAMOTIDINE 20 MG/2 ML VIAL IV ×2 (15:08→18:27)
[2024-11-05] MEDS: LACTATED RINGERS 1,000 ML 1000 ML IV ×2 (15:09→16:50)
[2024-11-05] MEDS: diphenhydrAMINE 50 MG/ML VIAL IV (15:09)
--- NOTE | 2024-11-05 19:42 | PM.HP.IH.1 ---
History of Present Illness History of Present Illness Date Patient Seen: 11/05/24 Time Patient Seen: 07:40 Date of Onset of Symptoms: 11/02/24 Chief complaint: Nausea and vomitting, abd pain, meds not helping Narrative: Patient is a 49-year-old white female presents to the emergency room with nausea vomiting x4 days eyes any hematemesis states she has been having problems having bowel movements only passing small little tiny fecal boluses. Patient has started developing abdominal pain 1 day ago patient has a history of stage IV colon cancer with Mets to the lung liver bone and pelvis. Patient was worked up in the emergency room was noted to have a WBC of 11.2 hemoglobin of 8.0 hematocrit is 26.7 platelets are 321,000 sodium is 134 potassium 3.3 chloride 96 bicarb is 28 BUN 28 creatinine 0.69 random blood sugar is 156 normal LFTs with an alkaline phosphatase of [address] scan was performed which showed diffuse lung Mets right greater than left diffuse liver Mets with the largest 1 measuring almost 10 cm patient has an absent gallbladder she is noted to have bone Mets to the pelvis absent uterus is noted patient is noted to have a sigmoid narrowing appears to be a tumor near her previous surgical anastomosis it appears that she may have a colovesical fistula with also a left lower quadrant abdominal wall tumor. Has asked the patient for surgical evaluation. Allergies: Aspirin, IV contrast, Medications see med list Past medical history: Corrective lenses, 4 para 4 ab 0 asthma, hypertension, history of peptic ulcer disease, ADHD, migraines, history of stage IV colorectal cancer diagnosed in 2019 was treated with surgery chemo and radiation therapy x2. Patient has had degenerative joint disease. Patient denies any other heart lungs digestive musculoskeletal neurological seizure disorder psychiatric problems risks infectious disease HIV or AIDS. Past surgical history: Tonsils and adenoids, cholecystectomy, cervical conization and a LEEP procedure, ADRIENNE with BSO in 2021, exploratory laparotomy with attempted left oophorectomy in 2020 with tumor growing into the ovary, sigmoid resection with anastomosis in 2019, multiple colonoscopies Social history: Denies any tobacco use, alcohol since she has 1 drink a year, is using CBD oral. Vitals: Temperature is 97.5? pulse 94 respirations 23 blood pressure is 200/115 SaO2 is 96.9% weight is 162 lb Head is normocephalic eyes PERRLA EOMI is intact nares are clear septum midline EACs appear unremarkable pharyngeal cavity is moderate repair heart regular rate and rhythm without murmurs. Lungs are diminished in the bases poor inspiratory and expiratory effort poor chest wall motion noted. Abdomen is distended soft left lower quadrant abdominal wall masses noted is fixed. Patient has hypoactive bowel sounds with some abdominal pain with palpation no peritoneal signs are elicited. Musculoskeletal moderate muscle tone and strength equal bilaterally no gross deficits elicited. Impression: Abdominal pain of 1 day's duration, nausea vomiting x4 days, minimal bowel movements. History of stage IV colon cancer with Mets to lung liver bone pelvis abdominal wall possible left ureteral obstruction sigmoid colon cancer obstruction near previous stapled anastomosis Hypertension not treated ADHD migraines Asthma Degenerative joint disease Plan: Discussed with patient and family members at bedside the findings patient needs to have a decompressing loop colostomy to decompress her colon which is extremely dilated secondary to the sigmoid obstruction. With patient's multiple coexisting findings recommend patient be done at a tertiary center she states that she would like to return back to [place] to see her oncological surgeon there we will try to arrange for transfer to [facility]. All questions were answered the patient's satisfaction. Recommend patient be transferred to a tertiary institution surgery here could be fraught for complications and problems. [facility] Medical History (Updated 08/12/23 @ 10:09 by Mehnaz Mac DO) ADHD Benign essential HTN Fatty liver Type 2 diabetes mellitus Secondary hypertension Asthma Lipoma of neck (2019) H/O colon cancer, stage I Anxiety and depression Easy bruisability Arthritis Hypoglycemia Bronchitis History of eustachian tube dysfunction Numbness Migraines Vaginal delivery HPV (human papilloma virus) infection (10/27/14) Abnormal Pap smear of cervix (10/27/14) Surgical History S/P laparoscopic hysterectomy (09/04/20) S/P exploratory laparotomy Hx of laparoscopy (01/06/20) Hx of cholecystectomy (~08/1998) History of conization of cervix (08/2019) Status post LEEP (loop electrosurgical excision procedure) of cervix Status post colon resection (03/2018) Hx of tonsillectomy Status post laparoscopic cholecystectomy History of third molar tooth extraction Family History Grandmother Ovarian cancer Heart disease Grandfather Diabetes mellitus Grandmother Breast cancer Social History number of children: 4 household members: children and other occupational status: employed Smoking Status: Never smoker alcohol intake: current substance use type: does not use and other eating out: 1-3 times/week Meds Home Medications and Allergies Home Medications ?Medication ?Instructions ?Recorded ?Confirmed ?Type cannabidiol 100 mg/mL oral solution 10 mg PO DAILY PRN Pain 11/19/18 08/11/23 History blood sugar diagnostic (Blood #50 ea 05/12/20 08/11/23 Rx Glucose Test strips) lancets (Microlet Lancet) #100 ea 05/12/20 08/11/23 Rx fluticasone propionate 50 2 spray intranasal DAILY PRN 08/25/20 08/11/23 Rx mcg/actuation nasal Seasonal allergies #9.9 mL spray,suspension albuterol sulfate 2.5 mg/0.5 mL 5 mg inhalation Q6H PRN shortness 01/25/21 08/11/23 Rx solution for nebulization of breath or wheezing #120 ea albuterol sulfate 2.5 mg/3 mL 2.5 mg (3 mL) inhalation Q6H PRN 01/25/21 08/11/23 Rx (0.083 %) solution for nebulization shortness of breath or wheezing #120 mL nebulizer #1 ea 01/25/21 08/11/23 Rx pantoprazole 40 mg tablet,delayed 40 mg PO DAILY 12/20/21 08/11/23 History release albuterol sulfate 90 mcg/actuation See Rx Instructions .Route 03/18/22 08/11/23 Rx aerosol inhaler .COMPLEX #6.7 grams amlodipine 10 mg tablet 10 mg PO DAILY #90 tabs 07/30/22 07/14/23 Rx diphenhydramine HCl 25 mg tablet mg PO 12/10/22 08/11/23 History (Allergy Relief (diphenhydramine)) ondansetron HCl 8 mg tablet 8 mg PO 3XD 12/10/22 08/11/23 History oxycodone 5 mg tablet 5 mg PO Q8H PRN 12/10/22 08/11/23 History prednisone 50 mg tablet mg PO 12/10/22 08/11/23 History tramadol 50 mg tablet 50 mg PO Q4H PRN 12/10/22 08/11/23 History lisinopril 20 mg tablet 40 mg PO DAILY 01/13/23 08/11/23 History nivolumab 240 [id number]-[id number] 40 ml IV Q28D 01/13/23 07/14/23 Rx 80 mg/20 mL intravenous solution amitriptyline 10 mg tablet 10 mg PO ONCE PM 07/14/23 08/11/23 History chlorthalidone 25 mg tablet 25 mg PO DAILY blood pressure #90 10/15/23 Rx tabs Allergies Allergy/AdvReac Type Severity Reaction Status Date / Time aspirin AdvReac Severe Nausea Verified 11/05/24 10:44 Iv contrast Allergy Severe rash Uncoded 11/05/24 10:47 Exam Vital Signs (past 8 hours): - 11/05/24 15:30 11/05/24 16:10 11/05/24 16:30 Pulse Rate 95 H 93 H 92 H Respiratory Rate Blood Pressure 207/109 H 215/113 H 202/105 H Pulse Oximetry 99 97 98 Oxygen Delivery Method Room Air Room Air Room Air 11/05/24 17:00 11/05/24 17:03 11/05/24 17:30 Pulse Rate 92 H 93 H Respiratory Rate 22 22 Blood Pressure 196/103 H 196/109 H Pulse Oximetry 98 97 Oxygen Delivery Method Room Air 11/05/24 17:30 11/05/24 18:00 11/05/24 18:00 Pulse Rate 97 H 93 H Respiratory Rate 20 15 Blood Pressure 201/112 H Pulse Oximetry 98 96 Oxygen Delivery Method 11/05/24 18:30 11/05/24 18:30 Pulse Rate 94 H Respiratory Rate 23 Blood Pressure 200/115 H Pulse Oximetry 96 Oxygen Delivery Method Oxygen Delivery Method Room Air Objective Labs 11/05/24 11:04 11/05/24 11:04 Labs: Laboratory Results - last 24 hr 11/05/24 11:04 WBC 11.2 H RBC 4.36 Hgb 8.0 L Hct 26.7 L MCV 61.2 L MCH 18.2 L MCHC 29.8 L RDW 21.8 H Plt Count 321 Neut % (Auto) 91.3 H Lymph % (Auto) 3.5 L [place] % (Auto) 5.0 Eos % (Auto) 0.0 L Baso % (Auto) 0.2 Neut # (Auto) 85256 H Lymph # (Auto) 400 L [place] # (Auto) 600 Eos # (Auto) 0 Baso # (Auto) 0 Platelet Estimate Adequate on smear Plt Morphology Comment RBC Morphology See below Hypochromasia 2+ H Poikilocytosis 1+ H Anisocytosis 2+ H Microcytosis 2+ H Ovalocytes 1+ H Sodium 134 L Potassium 3.3 L Chloride 96 L Carbon Dioxide 28 BUN 28 H Creatinine 0.69 Estimated GFR > 60 BUN/Creatinine Ratio 40.6 H Glucose 159 H Calcium 9.4 Total Bilirubin 1.1 AST 29 ALT 12 Alkaline Phosphatase 147 H Total Protein 8.0 Albumin 4.4 Globulin 3.6 Albumin/Globulin Ratio 1.2 Lipase 10 L Assessment & Plan Time-Based Coding :: [TOTAL MINUTES] spent with patient and on the chart (including review of chart, obtaining history, exam, reviewing outside data, placing orders, documenting exam and treatment plan, and counseling patient) on [DATE]. PROFEE Cardiology Nurse Practitioner Document charge(s): Yes
[2024-11-05] MEDS: LABETALOL 20 MG/4 ML SYRINGE 10 MG IV (21:49)
== END 2024-11-05 23:06 | disposition short-term general hospital (02) ==
PROVIDERS: Family Medicine; Emergency Provider Emergency Medicine; Family Provider Family Medicine; PCP Family Medicine
DX: K56.609 Unspecified intestinal obstruction, unspecified as to partial versus complete obstruction (principal); N82.4 Other female intestinal-genital tract fistulae; N13.5 Crossing vessel and stricture of ureter without hydronephrosis; C18.9 Malignant neoplasm of colon, unspecified; C79.9 Secondary malignant neoplasm of unspecified site
CPT/HCPCS: 74177; 80053; 81003; 83690; 85025; 93005; 96361; 96374; 96375; 96376; 99284; J1171; J1200; J2919